=== PATIENT | female | born 1960 | race African-American/Black ===

== ENCOUNTER 2017-08-17 10:40 | Outpatient (CLI) | payer MEDICAID | END 2017-08-17 10:41 | disposition home or self-care (01) | LOC: PET 10:40 | PROVIDERS: ATTEND Internal Medicine Medical Oncology | DX: Z53.9 Procedure and treatment not carried out, unspecified reason (principal); C50.311 Malignant neoplasm of lower-inner quadrant of right female breast ==

== ENCOUNTER 2017-08-18 15:12 | Inpatient (IN) | payer MEDICAID ==
[~2017-08-18 15:12] MED LIST: ISOVUE-370 76%-LOCM 1 ML ONE
[2017-08-18 16:24] LABS: #Eosinphils 0.4 thou/uL (0.0-0.7); #Lymphocytes 2.5 thou/uL (1.20-3.40); #Monocytes 1.4 thou/uL (0.11-0.59); #Neutrophils 11.3 thou/uL (1.40-6.50); %Basophils 0.2 % (0.0-1.0); %Eosinophils 2.4 % (0.0-10.0); %Lymphocytes 16.1 % (21.0-51.0); Hematocrit 29.8 % (36.0-47.0); Mean Platelet Volume 9.1 fL (7.4-10.4); Red Blood Cell (RBC) Count 4.28 mill/uL (4.20-5.40); White Blood Cell (WBC) Count 15.7 thou/uL (4.8-10.8)
[2017-08-18 16:35] LABS: Lactic Acid - Sepsis 0.9 mmol/L (0.5-2.2)
[2017-08-18 16:38] LABS: ALT (SGPT) 7 U/L (8-55); AST (SGOT) 13 U/L (5-34); Alkaline Phosphatase 87 U/L (40-150); Anion Gap 12 mmol/L (10-20); BUN (Urea Nitrogen) 7 mg/dL (9.8-20.1); Bilirubin, Total 0.2 mg/dL (0.2-1.2); Calc. Creatinine Clearance 0 mL/min (70-130); Calcium 8.8 mg/dL (7.8-10.44); Carbon Dioxide 23 mmol/L (22-29); Chloride 103 mmol/L (98-107); Estimated GFR-MDRD Greater than 90; Globulin 3.3 g/dL (2.4-3.5); Lipase 11 U/L (8-78); Protein, Total 6.5 g/dL (6.0-8.3)
[2017-08-18 16:48] LABS: Anisocytosis MODERATE=16-30 cells (100X) (0-5/hpf); Hypochromia MODERATE=16-30 cells (100X) (0-5/hpf); Microcytosis MODERATE=15-30 cells (100X) (0-5/hpf); Ovalocytes SLIGHT = 2-5 cells (100X) (0-1/hpf); Polychromasia MODERATE = 3-4 cells (100X) (0-2/hpf); Schistocytes SLIGHT = 2-5 cells (100X) (0-1/hpf); Target Cells MODERATE= 6-15 cells (100X) (0-1/hpf)
[2017-08-18] MEDS ORDERED: Ondansetron HCl/PF 4 MG/2 ML Vial ONE (17:11)
[2017-08-18 17:29] LABS: Bilirubin Negative (Negative); Blood, Urine Negative (Negative); Glucose, Urine (Dipstick) Negative (Negative); Ketone, Urine Trace mg/dL (Negative); Nitrite Negative (Negative); Protein, Urine (Dipstick) Negative (Neg-Trace); Urobilinogen 0.2 mg/dL (0.2-1.0)
[2017-08-18 17:50] LABS: Hyaline Casts/LPF 0-3 HYALINE CAST LPF (0-3 Hyaline); RBC/HPF 0-3 HPF (0-3); Squamous Epithelial 0-3 HPF (0-3); WBC/HPF 0-3 HPF (0-3)
[2017-08-18 18:03] LABS: Bacteria/HPF None Seen HPF (None Seen)
--- NOTE | 2017-08-18 20:58 | CT ---
CT OF THE ABDOMEN AND PELVIS WITH CONTRAST 08/18/17 COMPARISON: 06/12/17 HISTORY: Stage IV lung and breast cancer with uncontrollable pain in the abdomen. TECHNIQUE: Multiple contiguous axial images were obtained in a CT of the abdomen and pelvis with contrast. Rj nal reformats were performed. FINDINGS: There is scattered subcentimeter hypodensities in the liver which are too small to definitely charac terize. These could potentially represent metastatic lesions. The gallbladder, kidneys, adrenal glan ds, spleen, and pancreas are unremarkable. There has been interval development of enlarged lymph nodes versus formation of masses in the mesent noah of the small bowel. There is also a mass posterior to the right colon measuring 2.4 cm in size. Previously, this was a very small nodule measuring less than 1 cm in size. There has been interval d evelopment of a mass along the lower pole of the left kidney measuring 2.1 cm in size. A nodule meg cent to the spleen likely represents a splenule. There has been interval development of nodules within the subcutaneous tissues. In the anterior abdo men, there are two nodules within the subcutaneous fat measuring up to 1.3 cm in size. In the back, at approximately the T11 level, there is a midline 1.5 cm subcutaneous nodule. No suspicious osseous lesions are identified. There is a mass in the right lower lobe of the lung wh ich has increased in size measuring 5.4 cm in size. The previously seen nodule in the lingula has in creased in size and now measures 8 mm in size. A small right pleural effusion is seen. IMPRESSION: 1. Interval development of masses in the small bowel mesentery. It is difficult to determine th e size of these masses as no enteric contrast is given and these masses are immediately adjacent to the small bowel. These likely represent enlarged lymph nodes. 2. There has been interval development of a mass adjacent to the left kidney and enlargement of a mass posterior to the right cecum. These likely represent metastatic lesions. 3. There has been interval development of multiple subcutaneous nodules which likely represent metastatic disease. 4. Enlarging right lower lobe lung mass. 5. Enlargement of nodule in the lingula likely represents metastatic disease. 6. Hypodensities in the liver are concerning for metastatic disease. POS: [facility]
[2017-08-18] MEDS ORDERED: Ondansetron HCl/PF 4 MG/2 ML Vial IVP PRN (21:34)
[2017-08-18] MEDS ORDERED: Ondansetron ODT 4 MG TAB SL PRN (21:34)
[2017-08-18] MEDS: Sodium Chloride 0.9% 1,000 ML IV SCH (22:25)
[2017-08-18 23:50] VITALS: BMI 31.1
[2017-08-19] MEDS: Ketorolac Tromethamine 30 MG/ML VIAL IVP PRN ×3 (03:12→20:27)
[2017-08-19] MEDS: Sodium Chloride 0.9% 1,000 ML IV SCH ×3 (04:43→21:44)
[2017-08-19] MEDS ORDERED: Sodium Chloride 0.9% 1,000 ML IV SCH (05:00)
[2017-08-19] MEDS ORDERED: Ondansetron HCl/PF 4 MG/2 ML Vial IVP PRN ×2 (05:01→08:08)
[2017-08-19] MEDS ORDERED: Ondansetron ODT 4 MG TAB SL PRN (05:02)
[2017-08-19] MEDS ORDERED: cloNIDine HCl 0.1 MG TAB PO PRN (08:08)
[2017-08-19] MEDS ORDERED: HYDROcodone/Acetaminophen 10/325 mg Tablet PO PRN (08:08)
[2017-08-19] MEDS ORDERED: Ondansetron ODT 4 MG TAB PO PRN (08:08)
[2017-08-19] MEDS ORDERED: Benzonatate 100 MG CAP PO PRN (08:08)
[2017-08-19] MEDS ORDERED: traMADol HCl 50 MG TAB PO PRN (08:08)
[2017-08-19] MEDS ORDERED: Senokot 8.6 MG TAB PO PRN (08:08)
[2017-08-19] MEDS ORDERED: Acetaminophen 500 MG TAB PO PRN (08:08)
--- NOTE | 2017-08-19 10:02 | HP ---
DATE OF ADMISSION: 08/19/2017 PRIMARY CARE PROVIDER: Mallory Jarrett M.D. PRIMARY ONCOLOGIST: Dr. Young. CHIEF COMPLAINT: Abdominal pain. HISTORY OF PRESENT ILLNESS: This is a 57-year-old -Malaysian female who presented to [facility] Emergency Department complaining of generalized and prominent abdominal pain, increasing over the last 24-48 hours. The patient's history is significant for metastatic breast carcinoma af ter recent thoracentesis confirmed diagnosis in 05/2017 showing invasive mammary carcinoma medullary type with current oral chemotherapy. Patient states her next followup appointment is scheduled for 08/23/2017 to discuss treatment options and to assess adequacy of current regimen. The patient has noted increasing abdominal pain with some difficulty with constipation; however, had her last bowel movement in the last 24 hours. The patient does use [id number] remedies and stool softeners due to chronic narcotic use and tramadol secondary to pain. The patient denies any specific fever, chills, recent trauma, travel history or prominent diarrhea. The patient admits to mild nausea with out emesis. The patient admits to decreased appetite with approximately 20+ pound weight loss over the last several months since the recurrence of her breast cancer. The patient states she was initi ally diagnosed in 2010, undergoing a local resection with chemo and radiation therapy. The patient was noted recurrence after thoracentesis performed in 05/2017. The patient does admit she takes mary carmen e [place], tramadol and gabapentin with some relief of her symptoms. In the emergency room, the patie nt underwent general evaluation including CT of the abdomen and pelvis showing extensive metastatic process with new lesions noted in the small bowel, left kidney, and right cecum region. Multiple fuentes bcutaneous nodules also noted to be metastatic process. The patient received IV morphine sulfate, i ntravenous fluids, Zofran and was transferred to the Medical Oncology Unit for further evaluation. PAST MEDICAL HISTORY: 1. 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 2. Tobacco abuse. 3. Hypertension. 4. Coronary artery disease, status post stent placement. 5. Chronic back pain. 6. Left eye blindness post-trauma. PAST SURGICAL HISTORY: 1. Status post lymph node resection of the right breast. 2. Status post thoracentesis. 3. Status post left eye surgery, status post trauma. 4. Status post cholecystectomy. CURRENT MEDICATIONS: 1. Coreg 6.25 mg p.o. b.i.d. 2. Gabapentin 300 mg p.o. b.i.d. 3. Tramadol 50 mg p.o. q.i.d. p.r.n. ALLERGIES: No known drug allergies. FAMILY HISTORY: Positive for breast carcinoma and hypertension. SOCIAL HISTORY: Patient resides in [place], [place]. Smokes up to half a pack to 1 pack of cigaret susie daily. Occasional alcohol use. No illicit drug use. REVIEW OF SYSTEMS: The following complete review of systems was negative, unless otherwise mentione d in the HPI or below: Constitutional: Weight loss or gain, ability to conduct usual activities. Skin: Rash, itching. Eyes: Double vision, pain. ENT/Mouth: Nose bleeding, neck stiffness, pain, tenderness. Cardiovascular: Palpitations, dyspnea on exertion, orthopnea. Respiratory: Shortness of breath, wheezing, cough, hemoptysis, fever or night sweats. Gastrointestinal: Poor appetite, abdominal pain, heartburn, nausea, vomiting, constipation, or diar yusuf. Genitourinary: Urgency, frequency, dysuria, nocturia. Musculoskeletal: Pain, swelling. Neurologic/Psychiatric: Anxiety, depression. Allergy/Immunologic: Skin rash, bleeding tendency. Otherwise negative except as stated per HPI. PHYSICAL EXAMINATION: VITAL SIGNS: On admission, blood pressure 114/55, pulse 112, respiratory rate 16, temperature 98.9 degrees Fahrenheit, O2 saturation 93% on room air. GENERAL APPEARANCE: This is a 57-year-old -Malaysian female, alert and oriented x3, pleasant, in mild distress. HEENT: Right eye with reactive pupil. Extraocular muscles intact in the right eye. Nares patent. OP is clear. Teeth in poor repair. Multiple missing teeth noted. NECK: Supple, no cervical adenopathy, no thyromegaly, no carotid bruits, no JVD appreciated. Cervi carlton spine with full active and passive range of motion. CHEST: Occasional expiratory wheeze noted. Decreased breath sounds in the bases. CARDIOVASCULAR: S1, S2 with tachycardia. ABDOMEN: Rounded and soft with mild tenderness to palpation diffusely. Bowel sounds are positive i n all four quadrants. No palpable mass. No rebound or guarding noted. EXTREMITIES: Warm and dry with fair turgor. No clubbing, cyanosis or asymmetric edema appreciated. Pulses palpable distally at the dorsalis pedis, posterior tibial, and popliteal arteries bilateral ly. Capillary refill less than 2 seconds. NEUROLOGIC: Cranial nerves II-XII are grossly intact. No focal or lateralizing signs appreciated. PERTINENT LABORATORY DATA AND X-RAY FINDINGS: Basic metabolic profile within normal limits. Lactic acid level 0.9, calcium 8.8. LFTs within normal limits. Albumin 3.2 and lipase 11. CBC showed [facility] blood cell count of 15.7, hemoglobin 8.6, hematocrit 30, MCV 70, platelet count 510 with 72% sindi trophils. Urinalysis showed trace leukocyte esterase. CT of the abdomen and pelvis dated 7 showed interval development of small bowel mesenteric masses consistent with metastatic process ve rsus enlarged lymph nodes. Interval development of left kidney mass and posterior right cecal mass. Multiple subcutaneous nodules likely representing metastatic process. Enlarging right lower lobe lung mass. Enlarging nodule in the lingula, likely metastatic process. Multiple hypodensities in t he liver noted concerning for metastatic process. EKG dated 08/18/2017 by my interpretation shows a sinus mechanism with rates in the 90s. Normal R-wave progression noted in the precordial leads. N ormal axis. No acute ST-T wave changes appreciated. ASSESSMENT AND PLAN: 1. Metastatic breast carcinoma with abdominal pain. The patient will be admitted to the Medical On cology Unit. CT of the abdomen and pelvis concerning for wide metastatic process despite current ch emotherapy regimen. Continue morphine sulfate 4 mg IV every 2 hours p.r.n., [place] 10/325 mg 1-2 tab s p.o. q.4 hours p.r.n. pain, Toradol 15 mg IV q.6 hours p.r.n. We will consult Palliative Care Ser vice given wide metastatic process. Consult Medical Oncology Service for any further recommendation s and management options. The patient may be deemed an appropriate candidate for hospice given curr ent clinical presentation. Continue intravenous normal saline at 100 mL per hour. 2. Leukocytosis. Suspect secondarily to metastatic process as described in #1. Hold antibiotic th erapy and monitor clinically. Repeat CBC in the a.m. 3. Chronic microcytic anemia secondarily to metastatic breast carcinoma. No evidence to suggest ac krishan blood loss. Monitor serial hemoglobin trend. Check serum iron studies. 4. Hypertension. Resume Coreg 6.25 mg p.o. b.i.d. and monitor clinically. 5. Anorexia. We will continue to monitor oral intake. Consider dietitian consult. Ensure t.i.d. with meals. 6. Tobacco abuse. Transdermal nicotine 14 mg q.24 hours. 7. Prophylaxis. Sequential compression devices while in bed. Pepcid 20 mg p.o. b.i.d. 8. Code status is FULL. Surrogate medical decision maker is the patient's daughter.
[2017-08-19] MEDS: Gabapentin 300 MG CAP PO SCH ×2 (10:23→20:28)
[2017-08-19] MEDS: Famotidine 20 MG TAB PO SCH ×2 (10:23→20:28)
[2017-08-19] MEDS: Docusate 100 MG CAP PO SCH ×2 (10:23→20:29)
[2017-08-19] MEDS: Nicotine 14 MG PATCH TD SCH (10:32)
[2017-08-19] MEDS ORDERED: fentaNYL 50 mcg/hour Patch TD SCH (14:30)
--- NOTE | 2017-08-19 16:07 | CON ---
DATE OF CONSULTATION: 08/19/2017 REASON FOR CONSULTATION: Metastatic breast cancer. HISTORY OF PRESENT ILLNESS: Ms. Forte is a 57-year-old -[place] female, who was diagn osed with triple negative carcinoma of the right breast in 2010. She was treated with lumpectomy, c hemotherapy and radiation under the care of a local oncologist. She was lost the follow up and was admitted to [facility] in 05/2017 with shortness of breath. CT angio showed a right lowe r lobe mass measuring 4.6 cm. She had enlarged right hilar lymph nodes and a right pleural effusion . Thoracentesis fluid was positive for adenocarcinoma. She underwent open thoracotomy and pulmonar y decortication. Pathology was consistent with metastatic carcinoma of the breast. She was unfunde d at that time and was in the process of being approved for Medicaid. She was eventually able to ge t the prescription for Xeloda, which she started on 08/12/2017 and has completed only 7 days worth. She presented to the emergency room yesterday with complaints of abdominal pain. A CT scan of the abdomen and pelvis showed interval development of masses in the small bowel mesenteric. There was a lso development of multiple subcutaneous nodules. The right lower lobe mass was larger than prior C T scan, hypodensities in the liver that were initially considered to be cyst, were now concerning fo r metastatic disease. The patient was started on IV morphine and Toradol. Her [place] and tramadol w ere continued. We were asked to see the patient for assistance with pain control. PAST MEDICAL HISTORY: 1. Breast cancer in 2010. 2. Osteoporosis. 3. High blood pressure. 4. Arthritis. 5. Asthma. 6. Tobacco abuse. 7. Coronary artery disease with stent placement. PAST SURGICAL HISTORY: 1. Appendectomy. 2. Right mastectomy. 3. Thoracotomy decortication. ALLERGIES: No known drug allergies. HOME MEDICATIONS: 1. Ultram 50 mg 1-2 tablets q.4 hours p.r.n. pain. 2. Hydrocodone 10/325 1-2 tablets q.4 h. p.r.n. pain. 3. Xeloda 500 mg 4 tablets p.o. b.i.d. daily for 14 days with 1 week off. FAMILY HISTORY: Two aunts have from breast cancer. She has a grandson with brain cance r. SOCIAL HISTORY: Single, has three children stays with her daughter in [place]. She is a curren t smoker. No alcohol or illicit drug use. REVIEW OF SYSTEMS: Constitutional: Denies fever, chills, night sweats. Eyes: No blurred or doubl e vision. ENT: No pain, hoarseness, sore throat, or dysphagia. Cardiovascular: No chest pain, pa lpitations or syncope. Respiratory: No shortness of breath, dyspnea on exertion or orthopnea. Gas trointestinal: Positive for nausea, constipation, and abdominal pain. Genitourinary: No dysuria o r hematuria. Musculoskeletal: No joint or back pain. Skin: No rash or pruritus. Hematologic: N o bleeding, bruising or clotting. Neurologic: Denies weakness, headache, numbness, tingling or sei zure activity. Psychiatric: No anxiety or depression. PHYSICAL EXAMINATION: VITAL SIGNS: Temperature is 98.0, pulse is 108, respiratory rate 20, BP is 117/61. She is 95% on 2 liters. GENERAL: Well-developed, well-nourished female, in no acute distress. HEENT: Normocephalic, atraumatic. Pupils equal and reactive to light. She has poor dentition. NECK: Supple without JVD or mass. CARDIOVASCULAR SYSTEM: Regular rate and rhythm. LUNGS: Clear to auscultation. ABDOMEN: Soft, nontender. There is no organomegaly. No nodules palpable. EXTREMITIES: No clubbing, cyanosis or edema. SKIN: No rash. HEMATOLOGICAL: There is no petechia or purpura. NEUROLOGICAL: Grossly nonfocal. PSYCHIATRIC: The patient is alert and oriented and answers questions appropriately. PERTINENT LABORATORY AND X-RAYS: Current WBCs are 15.7, hemoglobin 8.6, hematocrit 29.8, platelet c ount 510,000, 72% neutrophils, 16% lymphocytes. Sodium 134, potassium 4.4, chloride 103, CO2 is 23, BUN is 7, creatinine 0.65, calcium is 8.8, total bilirubin is 0.2, AST 13, ALT 7, alkaline phosphat ase is 87. Serum total protein is 6.5, albumin 3.2, globulin 3.3. Urine is negative for bacteria. Radiology per HPI. IMPRESSION: 1. Metastatic breast cancer with lung metastasis on diagnosis now with abdominal metastatic disease . 2. Intractable pain secondary to #1. 3. Leukocytosis. 4. Chronic anemia. 5. Thrombocytosis, likely reactive. DISCUSSION: The patient is getting IV morphine and Toradol here. We will increase her tramadol to her home dose and add a fentanyl patch. We will try to limit IV pain medication. Patient is receiv ing her Xeloda here. We will continue medication twice a day. She has only been on treatment for 6 days. We did discuss hospice. She is not interested in going on hospice at this time, but is agre eable to Palliative Care. Palliative Care team will come by and discuss options with her. She will follow up with Dr. Young next week in the clinic. Thank you for the consult.
[2017-08-19] MEDS: traMADol HCl 50 MG TAB PO PRN ×2 (16:34→20:28)
[2017-08-19] MEDS: Carvedilol 6.25 MG TAB PO SCH (16:35)
[2017-08-19] MEDS: CAPECITABINE 500 MG PO SCH (20:27)
[2017-08-20] MEDS: Ketorolac Tromethamine 30 MG/ML VIAL IVP PRN ×3 (02:31→20:53)
[2017-08-20] MEDS: Sodium Chloride 0.9% 1,000 ML IV SCH ×2 (02:32→17:26)
[2017-08-20] MEDS: HYDROcodone/Acetaminophen 10/325 mg Tablet PO PRN ×3 (05:03→23:04)
[2017-08-20 05:29] LABS: IRF 0.425 Ratio (0.163-0.362); Reticulocyte Count 2.2 % (0.5-1.5)
[2017-08-20 05:45] LABS: Anion Gap 11 mmol/L (10-20); BUN (Urea Nitrogen) 6 mg/dL (9.8-20.1); Calc. Creatinine Clearance 140 mL/min (70-130); Calcium 8.6 mg/dL (7.8-10.44); Carbon Dioxide 25 mmol/L (22-29); Chloride 106 mmol/L (98-107); Estimated GFR-MDRD Greater than 90; Iron Less than 8 ug/dL (50-170)
[2017-08-20 06:08] LABS: Anisocytosis MODERATE=16-30 cells (100X) (0-5/hpf); Hematocrit 27.2 % (36.0-47.0); Hypochromia SLIGHT = 6-15 cells (100X) (0-5/hpf); Mean Platelet Volume 8.8 fL (7.4-10.4); Microcytosis SLIGHT = 6-15 cells (100X) (0-5/hpf); Neutrophil 79 % (42-75); Polychromasia SLIGHT = 2-3 cells (100X) (0-2/hpf); Reactive Lymphocytes 2 % (0-10); Red Blood Cell (RBC) Count 3.86 mill/uL (4.20-5.40); Tear Drops SLIGHT = 2-5 cells (100X) (0-1/hpf); White Blood Cell (WBC) Count 13.3 thou/uL (4.8-10.8)
[2017-08-20] MEDS: Carvedilol 6.25 MG TAB PO SCH ×2 (08:47→17:24)
[2017-08-20] MEDS: Gabapentin 300 MG CAP PO SCH ×2 (08:47→20:10)
[2017-08-20] MEDS: Famotidine 20 MG TAB PO SCH ×2 (08:47→20:10)
[2017-08-20] MEDS: CAPECITABINE 500 MG PO SCH ×2 (08:47→20:09)
[2017-08-20] MEDS: Docusate 100 MG CAP PO SCH ×2 (08:47→20:10)
[2017-08-20] MEDS: Nicotine 14 MG PATCH TD SCH (08:53)
[2017-08-20] MEDS ORDERED: IRON DEXTRAN IVPB SCH ×3 (11:00→11:15)
[2017-08-20] MEDS ORDERED: SODIUM CHLORIDE 0.9% IVPB SCH (11:00)
[2017-08-20] MEDS ORDERED: ADMIXTURE FEE IVPB SCH ×2 (11:15)
[2017-08-20] MEDS ORDERED: SODIUM CHLORIDE IVPB SCH ×2 (11:15)
--- NOTE | 2017-08-20 16:00 | PDOC.PN ---
- Subjective Encounter Start Date: 08/20/17 Encounter Start Time: 15:45 Subjective: f/u from abd pain due to metastatic breast ca. States doing better overall -: and less pain. Appetite improved. - Objective Resuscitation Status: Resuscitation Status FULL:Full Resuscitation MAR Reviewed: Yes Vital Signs & Weight: Vital Signs (12 hours) Temp Pulse Resp BP BP Pulse Ox 08/20/17 08:47 112/56 L 08/20/17 08:00 98.7 F 109 H 16 08/20/17 07:18 98.7 F 109 H 16 112/56 L 84 L Weight Weight 187 lb 6.287 oz I&O: 08/19/17 08/20/17 08/21/17 06:59 06:59 06:59 Intake Total 240 Output Total 300 Balance -60 Result Diagrams: 08/20/17 04:47 08/20/17 04:47 Additional Labs: Microbiology 06/08/17 08:51 Pleural fluid Acid Fast Bacilli Smear - Final 06/08/17 08:51 Pleural fluid Body Fluid Culture - Preliminary Laboratory Tests 06/08/17 06/09/17 06/10/17 05:42 06:01 03:37 WBC 11.5 H 9.7 14.6 H Hgb 11.3 L 10.3 L 9.5 L MCV Plt Count Iron Ferritin 08/18/17 08/20/17 08/20/17 16:09 04:47 04:47 WBC 15.7 H Hgb 8.6 L MCV 69.6 L Plt Count 510 H Iron Less than 8 L Ferritin 59.14 Phys Exam - Physical Examination Constitutional: NAD alert, responsive HEENT: PERRLA, oral pharynx no lesions Neck: no JVD, supple Respiratory: no wheezing, clear to auscultation bilateral Cardiovascular: RRR obese Gastrointestinal: soft, non-tender, no distention, positive bowel sounds Musculoskeletal: no edema, pulses present Neurological: normal sensation, moves all 4 limbs Psychiatric: A&O x 3 Skin: normal turgor, cap refill <2 seconds Dx/Plan (1) Abdominal pain Code(s): R10.9 - UNSPECIFIED ABDOMINAL PAIN Status: Acute Qualifiers: Abdominal location: generalized Qualified Code(s): R10.84 - Generalized abdominal pain Comment: Improved with current pain regimen, continue Duragesic patch, [place] 10/ 325mg po q6h prn (2) Metastatic breast carcinoma Code(s): C50.919 - MALIGNANT NEOPLASM OF UNSP SITE OF UNSPECIFIED FEMALE BREAST ; C79.9 - SECONDARY MALIGNANT NEOPLASM OF UNSPECIFIED SITE Status: Chronic Comment: Currently tx with Xeloda, apparent progression of dz despite chemothx (3) Microcytic anemia Code(s): D50.9 - IRON DEFICIENCY ANEMIA, UNSPECIFIED Status: Acute Comment: Iron IV today, follow serial H/H (4) HTN (hypertension) Code(s): I10 - ESSENTIAL (PRIMARY) HYPERTENSION Status: Chronic Qualifiers: Hypertension type: essential hypertension Qualified Code(s): I10 - Essential (primary) hypertension Comment: Continue Coreg 3.125mg BID (5) Tobacco abuse Code(s): Z72.0 - TOBACCO USE Status: Chronic Comment: smoking cessation resources - Plan social services director, respiratory therapy, out of bed/ambulate, DVT proph w/SCDs Stable currently -: Continue Duragesic patch, [place] -: IV Iron infusion today -: Colace and Senna prn -: Anticipate home in am * Ensure TID with meals
[2017-08-21] MEDS: Sodium Chloride 0.9% 1,000 ML IV SCH ×2 (04:23→11:40)
[2017-08-21] MEDS: Ketorolac Tromethamine 30 MG/ML VIAL IVP PRN (07:12)
[2017-08-21] MEDS: Carvedilol 6.25 MG TAB PO SCH ×2 (09:16→17:14)
[2017-08-21] MEDS: Gabapentin 300 MG CAP PO SCH (09:17)
[2017-08-21] MEDS: Famotidine 20 MG TAB PO SCH (09:17)
[2017-08-21] MEDS: Nicotine 14 MG PATCH TD SCH (09:17)
[2017-08-21] MEDS: Docusate 100 MG CAP PO SCH (09:17)
[2017-08-21] MEDS: CAPECITABINE 500 MG PO SCH (09:18)
[2017-08-21] MEDS: HYDROcodone/Acetaminophen 10/325 mg Tablet PO PRN (09:24)
[2017-08-21] MEDS ORDERED: Mag-Al 1200 mg/1200 mg/30 ML UDCUP PO SCH (11:30)
[2017-08-21] MEDS: traMADol HCl 50 MG TAB PO PRN (12:08)
[2017-08-21 17:15] VITALS: BP 121/60
[2017-08-21 17:16] VITALS: TEMP 98.5
--- NOTE | 2017-08-21 18:40 | DIS ---
DATE OF ADMISSION: 08/18/2017 DATE OF DISCHARGE: 08/21/2017 DISCHARGE DIAGNOSES: 1. Metastatic breast carcinoma with extensive intra-abdominal involvement. 2. Abdominal pain secondary to #1, improved. 3. Microcytic anemia with iron deficiency component. 4. Hypertension, stable. 5. Tobacco abuse. 6. Leukocytosis secondarily to #1. CONSULTATIONS: Medical Oncology Service. PERTINENT LABORATORY DATA AND X-RAY FINDINGS: Basic metabolic profile within normal limits. Serum iron level less than 8. Ferritin 59.14. LFTs within normal limits. Albumin 3.2, lipase 11. CBC s howed a white blood cell count ranging between 13.3-15.7, hemoglobin ranging between 7.7-8.6. Urine culture dated 08/18/2017 showed no growth at [address] of the abdomen and pelvis dated 08/18/20 17 showed intraabdominal masses in the small-bowel mesentery, questionable lymph node enlargement ve rsus metastatic process. Mass noted in the left kidney and right cecum likely metastatic process. Multiple subcutaneous nodules representing metastatic process. Enlarging right lower lobe lung mass . Enlargement of nodule in the lingula, likely metastatic process. Multiple hypodensities in the l iver consistent with metastatic process. HOSPITAL COURSE: The patient was admitted to the medical oncology unit after initially presenting w ith increased abdominal pain in the context of metastatic breast carcinoma with extensive intra-abdo zofia involvement. The patient was placed on IV morphine sulfate and underwent titration and adjust ment to pain regimen for optimal control. The patient currently is on Duragesic patch 50 mcg transd ermally q.72 hours with additional tramadol 100 mg q.6 hours p.r.n. The patient's overall pain had improved by the time of discharge. Current recommendations are for outpatient followup with Medical Oncology team for further assessment and consideration of adjustment to current chemotherapy regime n. Overall, the patient remained clinically stable for remainder the hospital course and ready for discharge on 08/21/2017. DISCHARGE MEDICATIONS: 1. Capecitabine 2000 mg p.o. b.i.d. 2. Coreg 6.25 mg p.o. b.i.d. 3. Gabapentin 300 mg 1 tablet p.o. b.i.d. 4. Duragesic patch 50 mcg transdermally every 72 hours. 5. Tramadol 100 mg p.o. q.i.d. p.r.n. FOLLOWUP: The patient may follow up with her primary care provider, Dr. Mallory Jarrett within 7 days of discharge. The patient will follow up with Dr. Young at the [facility] and to call his stefanie squires for appointment time and date. CONDITION ON DISCHARGE: Stable. ACTIVITY: Ad nuria. DIET: Heart healthy. CODE STATUS: FULL. DISPOSITION: Home on 08/21/2017.
== END 2017-08-21 17:50 | disposition home or self-care (01) | DRG 598 ==
LOC: ERS 15:12 → ONC 21:19
PROVIDERS: ADMIT Internal Medicine; ATTEND Internal Medicine
DX: C50.911 Malignant neoplasm of unspecified site of right female breast (principal); C78.01 Secondary malignant neoplasm of right lung; C78.5 Secondary malignant neoplasm of large intestine and rectum; C79.89 Secondary malignant neoplasm of other specified sites; C79.02 Secondary malignant neoplasm of left kidney and renal pelvis; Z90.11 Acquired absence of right breast and nipple; Z72.0 Tobacco use; I10 Essential (primary) hypertension; G89.29 Other chronic pain; M54.9 Dorsalgia, unspecified; H54.42 Blindness, left eye, normal vision right eye; Z90.49 Acquired absence of other specified parts of digestive tract; D72.829 Elevated white blood cell count, unspecified; D50.9 Iron deficiency anemia, unspecified; R63.0 Anorexia; D47.3 Essential (hemorrhagic) thrombocythemia
CPT/HCPCS: 36415; 74177; 80048; 80053; 81003; 81015; 82274; 82728; 83540; 83605; 83690; 85007; 85025; 85027; 85046; 87086; 93005; 94760; 96361; 96374; 96375; 96376; A4216; J1750; J1885; J2270; J2405; J7050; Q0162

== ENCOUNTER 2017-09-20 13:59 | Inpatient (IN) | payer OTHER ==
[2017-09-20] MEDS ORDERED: Ondansetron HCl/PF 4 MG/2 ML Vial ONE (14:49)
[2017-09-20] MEDS ORDERED: Morphine 2 MG/ML SYRINGE ONE (14:49)
[2017-09-20] MEDS ORDERED: diphenhydrAMINE 50 MG/ML VIAL ONE (14:57)
[2017-09-20] MEDS ORDERED: ISOVUE-370 76%-LOCM 1 ML ONE (15:03)
[2017-09-20 15:04] LABS: Hematocrit 29.6 % (36.0-47.0); Mean Platelet Volume 9.6 fL (7.4-10.4); Red Blood Cell (RBC) Count 4.37 mill/uL (4.20-5.40); White Blood Cell (WBC) Count 32.9 thou/uL (4.8-10.8)
[2017-09-20 15:18] LABS: Anisocytosis MODERATE=16-30 cells (100X) (0-5/hpf); Band 13 % (5-11); Elliptocytes SLIGHT = 2-5 cells (100X) (0-1/hpf); Hypochromia MODERATE=16-30 cells (100X) (0-5/hpf); Microcytosis MODERATE=15-30 cells (100X) (0-5/hpf); Neutrophil 78 % (42-75); Ovalocytes SLIGHT = 2-5 cells (100X) (0-1/hpf); Poikilocytosis MODERATE=16-30 cells (100X) (0-5/hpf); Polychromasia MODERATE = 3-4 cells (100X) (0-2/hpf); Reactive Lymphocytes 1 % (0-10); Schistocytes SLIGHT = 2-5 cells (100X) (0-1/hpf); Target Cells MODERATE= 6-15 cells (100X) (0-1/hpf); Tear Drops SLIGHT = 2-5 cells (100X) (0-1/hpf)
[2017-09-20 15:19] LABS: Lactic Acid - Sepsis 3.4 mmol/L (0.5-2.2)
[2017-09-20 15:27] LABS: ALT (SGPT) 7 U/L (8-55); AST (SGOT) 14 U/L (5-34); Alkaline Phosphatase 115 U/L (40-150); Anion Gap 13 mmol/L (10-20); BUN (Urea Nitrogen) 10 mg/dL (9.8-20.1); Bilirubin, Total 0.3 mg/dL (0.2-1.2); Calc. Creatinine Clearance 0 mL/min (70-130); Calcium 9.4 mg/dL (7.8-10.44); Carbon Dioxide 28 mmol/L (22-29); Chloride 92 mmol/L (98-107); Estimated GFR-MDRD Greater than 90; Globulin 3.6 g/dL (2.4-3.5); Lipase 20 U/L (8-78); Protein, Total 6.4 g/dL (6.0-8.3)
[2017-09-20 15:46] LABS: Bilirubin Small (Negative); Blood, Urine Negative (Negative); Glucose, Urine (Dipstick) Negative (Negative); Ketone, Urine Negative (Negative); Nitrite Negative (Negative); Protein, Urine (Dipstick) Trace mg/dL (Neg-Trace)
--- NOTE | 2017-09-20 16:05 | CT ---
CT ABDOMEN AND PELVIS WITH IV CONTRAST: Date: 09/20/17 HISTORY: Stage IV lung and breast cancer with pain in the abdomen. COMPARISON: 08/18/17. FINDINGS: Absence of oral contrast reduces the sensitivity of exam for evaluation of mesenteric lymphadenopath y and bowel loops. There has been interval increase in size of the pulmonary nodules and the lung bases. The large righ t basilar lung mass has also increased in size, measuring about 6.8 cm at the level of the left atri um. Low density lesions in the liver are stable. The spleen, pancreas, adrenal glands, and kidneys a re normal. No calcified gallstones are seen. The retroperitoneal masses inferior to the left kidney (2.7 x 3.9 x 4.2 cm) and in the right iliac f cecelia (3.2 x 2.3 x 2.9 cm) and mediastinal lymphadenopathy have increased in size. The anterior abdom inal wall nodules in the subcutaneous fat have also increased in size measuring about 2.0 cm each. No free air or free fluid is seen. There are degenerative changes in the spine. IMPRESSION: Interval worsening of metastatic disease since 08/18/17. POS: [facility]
[2017-09-20] MEDS ORDERED: Fentanyl 100 MCG/2 ML VIAL ONE (17:16)
[2017-09-20] MEDS ORDERED: Piperacillin/Tazobactam 4.5 GM VIAL ONE (17:43)
[2017-09-20] MEDS ORDERED: Sodium Chloride 0.9% 100 ML ONE (17:54)
[2017-09-20] MEDS ORDERED: Zolpidem Tartrate 5 MG TAB PO PRN (18:48)
[2017-09-20] MEDS ORDERED: HYDROcodone/Acetaminophen 5/325 mg Tablet PO PRN (18:48)
[2017-09-20] MEDS: HYDROcodone/Acetaminophen 10/325 mg Tablet PO PRN ×2 (19:23→23:21)
[2017-09-20 19:55] VITALS: BMI 29.3
[2017-09-20] MEDS: Piperacillin/Tazobactam 3.375 GM, Admixture Fee 1 EACH in Sodium Chloride 0.9% 100 ML IVPB SCH (20:45)
[2017-09-20] MEDS: Gabapentin 300 MG CAP PO SCH (20:59)
[2017-09-20] MEDS: Famotidine 20 MG TAB PO SCH (20:59)
[2017-09-20] MEDS: Enoxaparin Sodium 40 MG/0.4 ML SYRINGE SC SCH (20:59)
[2017-09-20] MEDS ORDERED: fentaNYL 50 mcg/hour Patch TD SCH (21:00)
[2017-09-20] MEDS ORDERED: CAPECITABINE 500 MG PO SCH (21:15)
[2017-09-21] MEDS: Sodium Chloride 0.9% 1,000 ML IV SCH ×3 (00:05→17:24)
--- NOTE | 2017-09-21 00:09 | HP ---
CHIEF COMPLAINT: Abdominal pain. HISTORY OF PRESENT ILLNESS: Ms. Forte is a pleasant 57-year-old - [place] female with history of metastatic breast cancer, coronary artery disease and chronic back pain who presents to the Emergency Department for abdominal pain. She states the pain has been there for sometime, but seems to have got worse over the last week or so. She describes this as a constant aching pain, rated 8 -10/10 and starts up in her right flank and seems to radiate around the midline on the right side. She has no known exacerbating or alleviating factors. She is still using her fentanyl patch, change every 3 days, but has been out of Ultram and cannot seem to get rid of the pain. She decided to come to the Emergency Department for evaluation. In the Emergency Department, she was found to have an elevated white blood cell count of 32.9 thousand, low hemoglobin, but otherwise fairly normal labs. She was tachycardic on presentation better after getting some pain medicine. The emergency room physicians contacted her oncologist, Dr. Young and he said the labs certainly could be due to her oral chemotherapeutic agent, but recommended admission for pain control necessary. Patient had no nausea or vomiting and had no bowel movements today. She has no GI bleeding above or below. She knows of no fevers, but has had some generalized body ache and chills, otherwise. She denies any cough or sputum production. In the Emergency Department, she received some IV fentanyl and was feeling better. We were called for admission. PAST MEDICAL HISTORY: 1. Metastatic breast cancer, originally diagnosed in 2010 and treated with surgery, chemotherapy and radiation and was felt to be in remission. 2. She was re-diagnosed in 2017 with recurrence, currently stage 4 with metastatic lesions to the lung and abdomen. 3. Coronary artery disease. 4. DJD. 5. Chronic back pain. PAST SURGICAL HISTORY: Includes; 1. PTCA with stent in 05/2015. 2. Right mastectomy and lymph node dissection, chemotherapy and radiation therapy in 2010. 3. Cholecystectomy. 4. Left eye enucleation remotely. HOME MEDICATIONS: Include; 1. Cepacitabine 500 mg 4 tabs p.o. b.i.d. 2. Coreg 6.25 mg p.o. b.i.d., which she is not taking currently. 3. Gabapentin 300 mg p.o. b.i.d., which she is not taking. 4. Fentanyl 50 mcg transdermal patch change every 3 days. 5. Tramadol 50 mg p.o. q.i.d. p.r.n., which she is currently out of. ALLERGIES: NKDA. FAMILY HISTORY: Negative for clotting or bleeding disorder. No immune dysfunction. Negative for diabetes or hypertension. SOCIAL HISTORY: 1. Significant for tobacco, smokes anywhere from a half to 1 pack per day for 26 years, currently down to 4 cigarettes a day since her re-diagnosis. 2. No alcohol, no IV drug abuse. She lives with her daughter. REVIEW OF SYSTEMS: A 10-point review of systems was performed, negative for all other systems except as stated per HPI. PHYSICAL EXAMINATION: VITAL SIGNS: Temperature 97.4, pulse 102, blood pressure 117/72, respiratory 18 and satting 99% on room air. GENERAL: She is awake. She is alert. She is oriented x3. She is a well- developed, well-nourished, overweight -[place] female who appears to be in no acute distress. HEENT: Normocephalic, atraumatic. 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 Mucous membranes are moist. She has no visible lesions, no thrush. NECK: Supple, without lymphadenopathy, JVD, or thyromegaly. CHEST: Lungs are clear bilaterally. She has some faint bibasilar crackles on the right lower posterior lung field that do not clear. CARDIOVASCULAR: Normal S1 and S2. She is slightly tachycardic, but regular. She has no audible murmurs. ABDOMEN: Soft. It is nontender. She has no rebound, rigidity or guarding. She has normoactive bowel sounds present in all 4 quadrants. EXTREMITIES: No cyanosis, no clubbing and no edema. She has 2+ peripheral pulses. SKIN: Warm, moist, and well perfused without any other rashes or lesions. MUSCULOSKELETAL: Normal to inspection. Her large joints appear uninflamed and normal to inspection. She has no palpable joint effusions. NEUROLOGIC: Cranial nerves II-XII are grossly intact without any focal deficits. SKIN: She has normal speech pattern and 5/5 strength. LABORATORY DATA: CMP reveals a sodium of 129, potassium 3.6, chloride 99, bicarbonate 28, BUN 10, creatinine 0.58. Lactic acid elevated at 3.4 and lipase at 20. Calcium was 9.4 and sugar of 123. Liver functions are fairly normal. Albumin is low at 2.8. White blood cell count 32.9, 78% granulocytes and 13% bands. She had a hemoglobin of 8.6, hematocrit of 28.6 and platelet count of 619,000. IMAGING DATA: CT scan of the abdomen and pelvis shows increased size of pulmonary nodules, increased large right basilar mass, retroperitoneal mass x2 and mediastinal lymphadenopathy is increased and low density liver lesions were stable. ASSESSMENT AND PLAN: 1. Abdominal pain: The patient is out of her home medications. We will place her in observation and try to achieve pain control with oral medications tonight. We will ask Oncology to see her. 2. Stage IV metastatic breast cancer with multiple lesions, worsening on oral chemotherapy. Oncology to see. Continue her home medications. 3. History of coronary artery disease: The patient has not been on the Coreg. We will continue that now and see if that helps with the tachycardia. 4. History of chronic low back pain. 5. Deep venous thrombosis and gastrointestinal prophylaxis has been ordered. MTDD
[2017-09-21] MEDS: Piperacillin/Tazobactam 3.375 GM, Admixture Fee 1 EACH in Sodium Chloride 0.9% 100 ML IVPB SCH ×4 (02:16→19:32)
[2017-09-21] MEDS: HYDROcodone/Acetaminophen 10/325 mg Tablet PO PRN ×2 (03:55→08:19)
[2017-09-21 04:26] LABS: #Eosinphils 0.4 thou/uL (0.0-0.7); #Lymphocytes 2.4 thou/uL (1.20-3.40); #Monocytes 2.2 thou/uL (0.11-0.59); #Neutrophils 18.5 thou/uL (1.40-6.50); %Basophils 0.1 % (0.0-1.0); %Eosinophils 1.8 % (0.0-10.0); %Lymphocytes 10.3 % (21.0-51.0); %Monocytes 9.4 % (0.0-10.0); Hematocrit 27.3 % (36.0-47.0); Mean Platelet Volume 9.2 fL (7.4-10.4); Red Blood Cell (RBC) Count 3.99 mill/uL (4.20-5.40); White Blood Cell (WBC) Count 23.6 thou/uL (4.8-10.8)
[2017-09-21 04:35] LABS: ALT (SGPT) 7 U/L (8-55); AST (SGOT) 12 U/L (5-34); Alkaline Phosphatase 93 U/L (40-150); Anion Gap 12 mmol/L (10-20); BUN (Urea Nitrogen) 6 mg/dL (9.8-20.1); Bilirubin, Total 0.3 mg/dL (0.2-1.2); Calc. Creatinine Clearance 143 mL/min (70-130); Calcium 8.6 mg/dL (7.8-10.44); Carbon Dioxide 25 mmol/L (22-29); Chloride 99 mmol/L (98-107); Estimated GFR-MDRD Greater than 90; Protein, Total 5.6 g/dL (6.0-8.3)
[2017-09-21] MEDS: Polyethylene Glycol 3350 17 GM Packet PO SCH (08:18)
[2017-09-21] MEDS: Famotidine 20 MG TAB PO SCH ×2 (08:18→20:14)
[2017-09-21] MEDS: Gabapentin 300 MG CAP PO SCH ×2 (08:19→20:14)
[2017-09-21] MEDS: Carvedilol 6.25 MG TAB PO SCH ×2 (08:19→17:24)
[2017-09-21] MEDS ORDERED: fentaNYL 50 mcg/hour Patch TD SCH (09:00)
[2017-09-21] MEDS ORDERED: FLU VACC QS2017-18 36 mo. & older 0.5 ML SYRINGE IM ONE (09:00)
--- NOTE | 2017-09-21 10:48 | PDOC.PN ---
- Subjective Encounter Start Date: 09/21/17 Encounter Start Time: 10:25 Subjective: f/u for metastatic breast ca with severe abd pain due to extensive -: metastatic process. Receiving Duragesic 50mcg TD and Vickery but -: pain not controlled. Diminished appetite. - Objective MAR Reviewed: Yes Vital Signs & Weight: Vital Signs (12 hours) Temp Pulse Resp BP BP Pulse Ox 09/21/17 08:00 98.2 F 94 16 09/21/17 07:15 98.2 F 94 16 120/61 95 09/21/17 04:00 98.2 F 115 H 16 111/56 L 92 L 09/20/17 23:17 97.9 F 117 H 16 112/55 L 99 Weight Weight 171 lb 1.259 oz I&O: 09/20/17 09/21/17 09/22/17 06:59 06:59 06:59 Intake Total 1211 428 Balance 1211 428 Result Diagrams: 09/21/17 04:06 09/21/17 04:06 Additional Labs: Microbiology 06/08/17 08:51 Pleural fluid Acid Fast Bacilli Smear - Final 09/20/17 17:36 Venous blood - Right Hand Blood Culture - Preliminary Specimen has been received and culture in progress. No Growth to date. 09/20/17 17:32 Venous blood - Right Arm Blood Culture - Preliminary Specimen has been received and culture in progress. No Growth to date. 06/08/17 08:51 Pleural fluid Body Fluid Culture - Preliminary Laboratory Tests 06/08/17 06/09/17 06/10/17 05:42 06:01 03:37 WBC 11.5 H 9.7 14.6 H Hgb 11.3 L 10.3 L 9.5 L MCV Plt Count Neutrophils % (Manual) Band Neuts % (Manual) Sodium Lactic Acid Iron Ferritin 08/18/17 08/20/17 08/20/17 16:09 04:47 04:47 WBC 15.7 H Hgb 8.6 L MCV 69.6 L Plt Count 510 H Neutrophils % (Manual) Band Neuts % (Manual) Sodium Lactic Acid Iron Less than 8 L Ferritin 59.14 09/20/17 09/20/17 09/20/17 14:45 14:45 14:45 WBC 32.9 H Hgb 8.6 L MCV Plt Count 619 H Neutrophils % (Manual) 78 H Band Neuts % (Manual) 13 H Sodium 129 L Lactic Acid 3.4 H Iron Ferritin 09/21/17 04:06 WBC Hgb MCV Plt Count Neutrophils % (Manual) Band Neuts % (Manual) Sodium Lactic Acid 1.7 Iron Ferritin Radiology Reviewed by me: Yes (CT abd/pel - worsening metastastic process) Phys Exam - Physical Examination alert, mod distress HEENT: PERRLA, oral pharynx no lesions Neck: no JVD, supple Respiratory: no wheezing, clear to auscultation bilateral Cardiovascular: RRR TTP diffusely Gastrointestinal: soft, positive bowel sounds Musculoskeletal: no edema, pulses present Neurological: normal sensation, moves all 4 limbs Psychiatric: A&O x 3 Skin: normal turgor, cap refill <2 seconds Dx/Plan (1) Abdominal pain Code(s): R10.9 - UNSPECIFIED ABDOMINAL PAIN Status: Acute Qualifiers: Abdominal location: generalized Qualified Code(s): R10.84 - Generalized abdominal pain Comment: Secondary to extensive metastatic process, uncontrolled, add Morphine Sulfate 5mg IV q3h prn, increase Duragesic 75mcg TD q3D, Vick[place] 10/325 2 tabs q6hprn (2) Metastatic breast carcinoma Code(s): C50.919 - MALIGNANT NEOPLASM OF UNSP SITE OF UNSPECIFIED FEMALE BREAST ; C79.9 - SECONDARY MALIGNANT NEOPLASM OF UNSPECIFIED SITE Status: Chronic Comment: Currently tx with Xeloda, progression of dz despite chemothx (3) Leukocytosis Code(s): D72.829 - ELEVATED WHITE BLOOD CELL COUNT, UNSPECIFIED Status: Acute Qualifiers: Leukocytosis type: bandemia Qualified Code(s): D72.825 - Bandemia Comment: Secondary to tumor burden and current chemo, continue empiric Zosyn, serial CBC (4) Tobacco abuse Code(s): Z72.0 - TOBACCO USE Status: Chronic Comment: smoking cessation resources, Nicotine patch (5) Hyponatremia Code(s): E87.1 - HYPO-OSMOLALITY AND HYPONATREMIA Status: Acute Comment: Improved with IV NS, poor dietary intake contributing (6) Lactic acidosis Code(s): E87.2 - ACIDOSIS Status: Acute Comment: Multifactorial, improved with IVF's, continue supportive measures (7) Microcytic anemia Code(s): D50.9 - IRON DEFICIENCY ANEMIA, UNSPECIFIED Status: Acute Comment: No evidence of acute blood loss, continue serial monitoring - Plan plan discussed w/ family, continue antibiotics, social science research assistant, out of bed/ ambulate, DVT proph w/SCDs Add Morphine Sulfate 5mg IV q3h -: Increase Duragesic 75mcg TD q3d -: Vickery 10/325 2 tabs q6h prn -: Zofran 8mg IV q6h -: Consult Palliative care * Consult Hospice * Trial Megace 40mg TID * AM lab: BMP, CBC * Convert to inpt status
[2017-09-21] MEDS: Morphine 10 MG/ML VIAL SLOW IVP PRN ×4 (11:02→20:48)
[2017-09-21] MEDS: CAPECITABINE 500 MG PO SCH ×2 (11:27→17:25)
[2017-09-21] MEDS: Ondansetron ODT 4 MG TAB PO PRN (11:32)
[2017-09-21] MEDS: Ondansetron HCl/PF 4 MG/2 ML Vial IVP SCH ×2 (11:44→17:24)
[2017-09-21] MEDS: fentaNYL 75 mcg/hour Patch TD SCH (12:02)
[2017-09-21] MEDS: Megestrol Acetate 40 MG TAB PO SCH ×2 (14:14→20:14)
--- NOTE | 2017-09-21 15:46 | CON ---
DATE OF CONSULTATION: 09/21/2017 REASON FOR CONSULTATION: Breast cancer. HISTORY OF PRESENT ILLNESS: Ms. Forte is a 57-year-old female with a history of triple negative carcinoma of the right breast. She had a lumpectomy , chemoradiation in 2010. She was in remission for over 5 years, but reoccurred with metastasis to the lung, right hilar lymph nodes and right pleura. She has been taking Xeloda oral chemotherapy for the last 6 weeks. She has had significant pain in her back and abdomen and has been managed with tramadol, [place], and Fentanyl patch. She presented to the emergency room yesterday with worsening abdominal discomfort. In the emergency room, she had an abdominal and pelvis CT, which showed interval worsening of her metastatic disease from her prior admission on 08/18/2017. She was started on IV morphine and her pain has improved. She states that she has been taking her Xeloda. She denies any shortness of breath or chest pain. No diarrhea or constipation. She still has mild abdominal discomfort to palpation starting in the right upper quadrant and extends across the abdomen to left umbilical area. PAST MEDICAL HISTORY: 1. Triple negative metastatic breast cancer. 2. Osteoporosis. 3. High blood pressure. 4. Arthritis. 5. Asthma. 6. Coronary artery disease. PAST SURGICAL HISTORY: 1. Coronary artery stent placement. 2. Appendectomy. 3. Lumpectomy. 4. Cholecystectomy. ALLERGIES: No known drug allergies. HOME MEDICATIONS: 1. Duragesic 50 mcg transdermal q.3 days. 2. Hydrocodone 10/325 one to two q.4 hours p.r.n. pain. 3. Ultram 50 one to two q.4 hours p.r.n. pain. 4. Xeloda 500 mg 4 tabs b.i.d. FAMILY HISTORY: Two aunts with breast cancer. Grandson has brain cancer. SOCIAL HISTORY: Single, has 3 children and lives with her daughter. Current everyday smoker. No alcohol or illicit drug use. REVIEW OF SYSTEMS: A 10 point review of systems negative except for noted in HPI. PHYSICAL EXAMINATION: VITAL SIGNS: Temperature is 97.9, pulse is 95, respiratory rate 16, and BP is 112/58. She is 95% on room air. GENERAL: Well-developed, well-nourished female in no acute distress. HEENT: Normocephalic, atraumatic. Pupils are equal and reactive to light. NECK: Supple. CARDIOVASCULAR: Regular rate and rhythm. LUNGS: Clear to auscultation. ABDOMEN: Bowel sounds are positive. She has palpable subcutaneous nodules in the left umbilical area. EXTREMITIES: No clubbing, cyanosis or edema. SKIN: No rash. HEMATOLOGIC: No petechia or purpura. NEUROLOGIC: Nonfocal. PSYCHIATRIC: The patient is alert and oriented and answers questions appropriately. PERTINENT LABORATORY DATA AND X-RAYS: Current WBCs are 23.6, hemoglobin 7.9, hematocrit 27.3, and platelet count is 565,000. She has got 78% neutrophils, 10 % lymphocytes. Sodium is 132, potassium 3.7, chloride 99, CO2 is 25, BUN is 6, creatinine 0.54, and calcium is 8.6. Total bilirubin is 0.3, AST is 12, ALT 7, and alkaline phosphatase is 93. Serum total protein is 5.6, albumin 2.6, globulin 3, lipase 20. Urine is negative for bacteria. Radiology per HPI. ASSESSMENT: 1. Metastatic breast cancer with progression on Xeloda. 2. Intractable pain. 3. Anemia secondary to chemotherapy. DISCUSSION: The patient's fentanyl patch has been increased to 75 mcg. We will add long-acting MS Contin 30 mg b.i.d. Discussed with the patient that she has likely progressed on Xeloda. She declined hospice and would like to continue with chemotherapy. I spoke with Dr. Young who feels that we can offer her IV chemotherapy. We will plan first dose in the hospital and follow her up as an outpatient. Thank you for the consult. MTDD
[2017-09-21] MEDS: Morphine ER 30 MG TAB PO SCH (20:15)
[2017-09-21] MEDS: Enoxaparin Sodium 40 MG/0.4 ML SYRINGE SC SCH (20:16)
[2017-09-22] MEDS: Morphine 10 MG/ML VIAL SLOW IVP PRN ×4 (00:08→13:03)
[2017-09-22] MEDS: Sodium Chloride 0.9% 1,000 ML IV SCH ×5 (00:10→20:01)
[2017-09-22] MEDS: Piperacillin/Tazobactam 3.375 GM, Admixture Fee 1 EACH in Sodium Chloride 0.9% 100 ML IVPB SCH ×4 (02:29→20:01)
[2017-09-22 04:24] LABS: Band 1 % (5-11); Hematocrit 26.5 % (36.0-47.0); Hypochromia MODERATE=16-30 cells (100X) (0-5/hpf); Mean Platelet Volume 9.4 fL (7.4-10.4); Microcytosis SLIGHT = 6-15 cells (100X) (0-5/hpf); Neutrophil 85 % (42-75); Red Blood Cell (RBC) Count 3.69 mill/uL (4.20-5.40); Target Cells SLIGHT = 2-5 cells (100X) (0-1/hpf); White Blood Cell (WBC) Count 17.9 thou/uL (4.8-10.8)
[2017-09-22 04:33] LABS: Anion Gap 11 mmol/L (10-20); BUN (Urea Nitrogen) 5 mg/dL (9.8-20.1); Calc. Creatinine Clearance 148 mL/min (70-130); Calcium 8.5 mg/dL (7.8-10.44); Carbon Dioxide 24 mmol/L (22-29); Chloride 105 mmol/L (98-107); Estimated GFR-MDRD Greater than 90
[2017-09-22] MEDS: Ondansetron HCl/PF 4 MG/2 ML Vial IVP SCH ×4 (06:13→16:58)
[2017-09-22] MEDS: Morphine ER 30 MG TAB PO SCH ×2 (08:39→20:02)
[2017-09-22] MEDS: Gabapentin 300 MG CAP PO SCH ×2 (08:40→20:03)
[2017-09-22] MEDS: Famotidine 20 MG TAB PO SCH ×2 (08:40→20:02)
[2017-09-22] MEDS: Megestrol Acetate 40 MG TAB PO SCH ×3 (08:40→20:03)
[2017-09-22] MEDS: Carvedilol 6.25 MG TAB PO SCH ×2 (08:40→16:10)
[2017-09-22] MEDS: Polyethylene Glycol 3350 17 GM Packet PO SCH (08:41)
[2017-09-22] MEDS: CAPECITABINE 500 MG PO SCH (09:56)
[2017-09-22] MEDS: Ondansetron ODT 4 MG TAB PO PRN (11:35)
--- NOTE | 2017-09-22 15:37 | PDOC.PN ---
- Subjective Encounter Start Date: 09/22/17 Encounter Start Time: 15:30 Subjective: f/u for abd pain due to metastatic breast cancer with extensive intra- -: abdominal involvement and progression on chemo. Pain improved with -: current pain med regimen. Plan for IV chemo prior to d/c. - Objective MAR Reviewed: Yes Vital Signs & Weight: Vital Signs (12 hours) Temp Pulse Resp BP Pulse Ox 09/22/17 11:45 97.8 F 97 16 107/51 L 94 L 09/22/17 08:00 98.3 F 99 16 94 L 09/22/17 07:05 98.3 F 99 16 118/58 L 94 L Weight Weight 171 lb 1.259 oz I&O: 09/21/17 09/22/17 09/23/17 06:59 06:59 06:59 Intake Total 1211 4668 Output Total 400 Balance 1211 4668 -400 Result Diagrams: 09/22/17 03:41 09/22/17 03:41 Additional Labs: Microbiology 09/20/17 17:36 Venous blood - Right Hand Blood Culture - Preliminary NO GROWTH AT 48 HOURS 09/20/17 17:32 Venous blood - Right Arm Blood Culture - Preliminary NO GROWTH AT 48 HOURS Laboratory Tests 09/20/17 09/20/17 09/20/17 14:45 14:45 14:45 WBC 32.9 H Hgb 8.6 L Plt Count 619 H Neutrophils % Neutrophils % (Manual) 78 H Sodium 129 L Lactic Acid 3.4 H 09/21/17 09/21/17 09/21/17 04:06 04:06 04:06 WBC 23.6 H Hgb 7.9 L Plt Count 565 H Neutrophils % 78.4 H Neutrophils % (Manual) Sodium 132 L Lactic Acid 1.7 09/22/17 03:41 WBC Hgb Plt Count Neutrophils % Neutrophils % (Manual) 85 H Sodium Lactic Acid Phys Exam - Physical Examination mild distress HEENT: PERRLA, oral pharynx no lesions Neck: no JVD, supple Respiratory: no wheezing, clear to auscultation bilateral Cardiovascular: RRR Diffuse TTP Gastrointestinal: soft, positive bowel sounds Musculoskeletal: no edema, pulses present Neurological: normal sensation, moves all 4 limbs Psychiatric: A&O x 3 Skin: normal turgor, cap refill <2 seconds Dx/Plan (1) Abdominal pain Code(s): R10.9 - UNSPECIFIED ABDOMINAL PAIN Status: Acute Qualifiers: Abdominal location: generalized Qualified Code(s): R10.84 - Generalized abdominal pain Comment: Secondary to extensive metastatic process, uncontrolled, add Morphine Sulfate 5mg IV q3h prn, increase Duragesic 75mcg TD q3D, [place] 10/325 2 tabs q6hprn (2) Metastatic breast carcinoma Code(s): C50.919 - MALIGNANT NEOPLASM OF UNSP SITE OF UNSPECIFIED FEMALE BREAST ; C79.9 - SECONDARY MALIGNANT NEOPLASM OF UNSPECIFIED SITE Status: Chronic Comment: Currently tx with Xeloda, progression of dz despite chemothx (3) Leukocytosis Code(s): D72.829 - ELEVATED WHITE BLOOD CELL COUNT, UNSPECIFIED Status: Acute Qualifiers: Leukocytosis type: bandemia Qualified Code(s): D72.825 - Bandemia Comment: Secondary to tumor burden and current chemo, continue empiric Zosyn, serial CBC (4) Tobacco abuse Code(s): Z72.0 - TOBACCO USE Status: Chronic Comment: smoking cessation resources, Nicotine patch (5) Hyponatremia Code(s): E87.1 - HYPO-OSMOLALITY AND HYPONATREMIA Status: Acute Comment: Improved with IV NS, poor dietary intake contributing (6) Lactic acidosis Code(s): E87.2 - ACIDOSIS Status: Acute Comment: Multifactorial, improved with IVF's, continue supportive measures (7) Microcytic anemia Code(s): D50.9 - IRON DEFICIENCY ANEMIA, UNSPECIFIED Status: Acute Comment: No evidence of acute blood loss, continue serial monitoring - Plan plan discussed w/ family, continue antibiotics, social work 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
[2017-09-22] MEDS: Morphine IR 10 MG/5 ML UDCUP PO PRN (17:52)
[2017-09-22] MEDS: Enoxaparin Sodium 40 MG/0.4 ML SYRINGE SC SCH (20:04)
[2017-09-23] MEDS: Ondansetron HCl/PF 4 MG/2 ML Vial IVP SCH ×3 (00:19→12:45)
[2017-09-23] MEDS: Morphine IR 10 MG/5 ML UDCUP PO PRN ×5 (00:20→21:32)
[2017-09-23] MEDS: Piperacillin/Tazobactam 3.375 GM, Admixture Fee 1 EACH in Sodium Chloride 0.9% 100 ML IVPB SCH ×4 (01:36→20:51)
[2017-09-23] MEDS: Carvedilol 6.25 MG TAB PO SCH ×2 (08:31→17:02)
[2017-09-23] MEDS: Megestrol Acetate 40 MG TAB PO SCH ×3 (08:31→20:51)
[2017-09-23] MEDS: Famotidine 20 MG TAB PO SCH ×2 (08:31→20:51)
[2017-09-23] MEDS: Polyethylene Glycol 3350 17 GM Packet PO SCH (08:31)
[2017-09-23] MEDS: Morphine ER 30 MG TAB PO SCH ×2 (08:31→20:51)
[2017-09-23] MEDS: Gabapentin 300 MG CAP PO SCH ×2 (08:32→20:51)
[2017-09-23] MEDS ORDERED: CEFAZOLIN/Water 2 GM/20 ML SYRINGE SLOW IVP SCH (12:45)
--- NOTE | 2017-09-23 14:15 | PDOC.PN ---
- Subjective Encounter Start Date: 09/23/17 Encounter Start Time: 14:10 Subjective: f/u for metastatic breast carcinoma with extensive intra-abdominal -: involvement. Pain improved with current regimen. - Objective MAR Reviewed: Yes Vital Signs & Weight: Vital Signs (12 hours) Temp Pulse Resp BP Pulse Ox 09/23/17 08:00 98.8 F 115 H 18 92 L 09/23/17 07:44 98.8 F 115 H 18 130/59 L 94 L 09/23/17 07:37 90 L 09/23/17 07:30 90 L Weight Weight 171 lb 1.259 oz I&O: 09/22/17 09/23/17 09/24/17 06:59 06:59 06:59 Intake Total 4668 4368 Output Total 400 100 Balance 4668 3968 -100 Result Diagrams: 09/22/17 03:41 09/22/17 03:41 Phys Exam - Physical Examination Constitutional: NAD HEENT: PERRLA, oral pharynx no lesions Neck: no JVD, supple Respiratory: no wheezing, clear to auscultation bilateral Cardiovascular: RRR mild TTP diffusely Gastrointestinal: soft, no distention, positive bowel sounds Musculoskeletal: no edema, pulses present Neurological: normal sensation, moves all 4 limbs Psychiatric: A&O x 3 Skin: normal turgor, cap refill <2 seconds Dx/Plan (1) Abdominal pain Code(s): R10.9 - UNSPECIFIED ABDOMINAL PAIN Status: Acute Qualifiers: Abdominal location: generalized Qualified Code(s): R10.84 - Generalized abdominal pain Comment: Secondary to extensive metastatic process, uncontrolled, add Morphine Sulfate 5mg IV q3h prn, increase Duragesic 75mcg TD q3D, [place] 10325 2 tabs q6hprn (2) Metastatic breast carcinoma Code(s): C50.919 - MALIGNANT NEOPLASM OF UNSP SITE OF UNSPECIFIED FEMALE BREAST ; C79.9 - SECONDARY MALIGNANT NEOPLASM OF UNSPECIFIED SITE Status: Chronic Comment: Currently tx with Xeloda, progression of dz despite chemothx (3) Leukocytosis Code(s): D72.829 - ELEVATED WHITE BLOOD CELL COUNT, UNSPECIFIED Status: Acute Qualifiers: Leukocytosis type: bandemia Qualified Code(s): D72.825 - Bandemia Comment: Secondary to tumor burden and current chemo, continue empiric Zosyn, serial CBC (4) Tobacco abuse Code(s): Z72.0 - TOBACCO USE Status: Chronic Comment: smoking cessation resources, Nicotine patch (5) Hyponatremia Code(s): E87.1 - HYPO-OSMOLALITY AND HYPONATREMIA Status: Acute Comment: Improved with IV NS, poor dietary intake contributing (6) Lactic acidosis Code(s): E87.2 - ACIDOSIS Status: Acute Comment: Multifactorial, improved with IVF's, continue supportive measures (7) Microcytic anemia Code(s): D50.9 - IRON DEFICIENCY ANEMIA, UNSPECIFIED Status: Acute Comment: No evidence of acute blood loss, continue serial monitoring - Plan plan discussed w/ family, PT/OT, director social service, out of bed/ambulate, DVT proph w/SCDs Stable overall -: Pain regimen adequate currently -: MUGA scan completed today -: Plan for Mediport placement in am -: Trial Phenergan 25mg po q6h prn * Likely can transition home in 48h
--- NOTE | 2017-09-23 15:29 | NM ---
MUGA SCAN: Date: 09/23/17 HISTORY: Breast cancer, lung cancer, chemotherapy. RADIOPHARMACEUTICAL: 28.4 mCi technetium-99m labeled RBCs injected intravenously. FINDINGS: The left ventricular ejection fraction measures 62%. The wall motion is normal. IMPRESSION: LVEF is 62%. POS: TONG
[2017-09-23] MEDS: Sodium Chloride 0.9% 1,000 ML IV SCH ×2 (17:09→20:50)
--- NOTE | 2017-09-23 20:41 | CON ---
DATE OF CONSULTATION: 09/23/2017 HISTORY OF PRESENT ILLNESS: Khushbu Forte is admitted to this Hospitalist Service for abdomi nal pain. CAT scan revealed evidence of advanced breast metastasis. The patient has been seen by O ncology and I have been asked to place a MediPort for neoadjuvant therapy. She has a history of lum pectomy, chemoradiation for triple negative right breast cancer. This was treated in 2010 for chemo radiation lumpectomy. She has since developed metastasis to the lung and right hilar nodes, and ple ura, on Xeloda orally for the last six weeks, but has been nonresponsive. PAST MEDICAL HISTORY: Triple negative breast cancer, osteoporosis, hypertension, arthritis, asthma, coronary artery disease with history of stent placement. PAST SURGICAL HISTORY: Appendectomy, lumpectomy, breast cancer, chemoradiation therapy, cholecystec diego, and laparoscopy. ALLERGIES: None. MEDICATIONS: Hydrocodone, Ultram, transdermal fentanyl patch, and Xeloda. SOCIAL HISTORY: Three children. She smokes daily, does not use alcohol or drugs. REVIEW OF SYSTEMS: Ten-point noncontributory. PHYSICAL EXAMINATION: VITAL SIGNS: Height 5 feet 4 inches, 171 pounds, 29 BMI. HEENT: Unremarkable. LUNGS: Clear to auscultation. CARDIAC: Regular rate and rhythm without murmur or gallop. ABDOMEN: Soft, nontender. EXTREMITIES: Unremarkable. LABORATORY DATA: White count 17, hemoglobin 7.6. Basic metabolic profile unremarkable. ASSESSMENT: Metastatic triple negative breast cancer, refractory to Xeloda. PLAN: Placement of a MediPort for neoadjuvant chemotherapy access, plan is tomorrow. Risk and bene fits discussed. Questions answered.
[2017-09-23] MEDS: Enoxaparin Sodium 40 MG/0.4 ML SYRINGE SC SCH (20:52)
[2017-09-24] MEDS: Piperacillin/Tazobactam 3.375 GM, Admixture Fee 1 EACH in Sodium Chloride 0.9% 100 ML IVPB SCH ×4 (01:50→19:55)
[2017-09-24] MEDS: Morphine IR 10 MG/5 ML UDCUP PO PRN ×4 (01:50→21:12)
[2017-09-24] MEDS: Carvedilol 6.25 MG TAB PO SCH ×2 (05:53→16:46)
[2017-09-24] MEDS: Gabapentin 300 MG CAP PO SCH ×2 (08:20→20:03)
[2017-09-24] MEDS: Famotidine 20 MG TAB PO SCH ×2 (08:20→20:01)
[2017-09-24] MEDS: Morphine ER 30 MG TAB PO SCH ×2 (08:21→20:01)
[2017-09-24] MEDS: Megestrol Acetate 40 MG TAB PO SCH ×3 (08:21→20:01)
[2017-09-24] MEDS: Polyethylene Glycol 3350 17 GM Packet PO SCH (08:21)
[2017-09-24] MEDS ORDERED: Lidocaine 2% w/Epinephrine 1:200K 20 ML VIAL ONE (09:11)
[2017-09-24] MEDS ORDERED: Bupivacaine PF 0.5% 30 ML VIAL ONE (09:11)
[2017-09-24] MEDS ORDERED: Midazolam HCl 2 mg/2 ml Vial ONE (09:52)
[2017-09-24] MEDS ORDERED: Fentanyl 100 MCG/2 ML VIAL ONE (09:52)
[2017-09-24] MEDS ORDERED: Propofol 200 MG/20 ML VIAL ONE (10:12)
[2017-09-24] MEDS ORDERED: Promethazine HCl 25 MG/ML VIAL IM PRN (10:44)
[2017-09-24] MEDS ORDERED: Ondansetron HCl/PF 4 MG/2 ML Vial IVP PRN (10:44)
[2017-09-24] MEDS ORDERED: Promethazine HCl 25 MG/ML VIAL SLOW IVP PRN (10:44)
[2017-09-24] MEDS: fentaNYL 75 mcg/hour Patch TD SCH (12:06)
--- NOTE | 2017-09-24 12:16 | OP ---
PREOPERATIVE DIAGNOSES: Metastatic breast cancer refracted oral chemotherapy, and the patient in ne ed of intravenous antineoplastic chemotherapy access. POSTOPERATIVE DIAGNOSES: Metastatic breast cancer refracted oral chemotherapy, and the patient in n eed of intravenous antineoplastic chemotherapy access. PROCEDURE: Right subclavian vein standard profile MediPort. SURGEON: Nic Dorsey M.D. ANESTHESIA: Intravenous sedation and local 0.5% Marcaine, 30 mL mixed with 2% Xylocaine, with epine phrine 10 mL Fluoroscopy used. PROCEDURE IN DETAIL: The patient taken to the operating room, where under intravenous sedation, nec k and chest were prepared with chloraprep, draped in routine fashion. Local anesthetic mixture infi ltrated into skin and subcutaneous tissue about the operative site. Trocar catheter cannulated the subclavian vein infraclavicular approach right. Good return of venous blood obtained. J-wire threa ded, trocar catheter removed. Skin incised and enlarged sharply through skin and subcutaneous tissu e and a subcutaneous pocket made to accommodate the MediPort. Dilator and pull-away sheath placed o vidya the J-wire into the subclavian vein and superior vena cava. The dilator and J-wire removed. Ca theter placed with a pull-away sheath. Pull-away sheath removed. Fluoroscopically, the catheter no colleen to go into the left internal jugular vein and thus fluoroscopy used to place the J-wire and sage pulate the catheter into the superior vena cava placed in the tip in optimal position, removing the J-wire, securing the catheter to length, connected to the MediPort, secured in the MediPort in subcu taneous pocket with 2 interrupted suture of 3-0 Prolene. Subcutaneous tissues approximated with 3-0 Monocryl, skin with subdermal 4-0 Monocryl and DermaGlue applied as the MediPort was accessed with Hurtado needle, aspirated blood, flushed with saline solution. Heparinized saline solution. Patient tolerated the procedure well. Final fluoroscopic images revealed good line placement and MediPort p lacement.
[2017-09-24] MEDS: Sodium Chloride 0.9% 1,000 ML IV SCH (14:02)
--- NOTE | 2017-09-24 14:43 | RAD ---
PORTABLE CHEST ONE VIEW: 09/24/2017 11:07 a.m. HISTORY: Mediport placement. COMPARISON: 07/13/2017 FINDINGS: There has been interval placement of a right subclavian Port-A-Cath, with the tip in the projection of the right atrium. No pneumothoraces are seen. There is elevation of the right hemidiaphragm, wh ich is worse compared to that of 07/13/2017. There is a plate of atelectatic change in the right mi d lung. Surgical clips in the right axilla are again seen. The heart size is normal. The left justo g is clear. POS: [facility]
--- NOTE | 2017-09-24 16:27 | PDOC.PN ---
- Subjective Encounter Start Date: 09/24/17 Encounter Start Time: 15:30 Pt seen for followup re: pain. Denies chest pain. Abdo pain better. No nausea or vomiting. - Objective MAR Reviewed: Yes Vital Signs & Weight: Vital Signs (12 hours) Temp Pulse Resp BP Pulse Ox 09/24/17 08:00 98.7 F 103 H 20 09/24/17 07:00 98.7 F 103 H 20 108/56 L 96 Weight Weight 171 lb 1.259 oz I&O: 09/23/17 09/24/17 09/25/17 06:59 06:59 06:59 Intake Total 4368 3900 Output Total 400 100 Balance 3968 3800 Result Diagrams: 09/22/17 03:41 09/22/17 03:41 Phys Exam - Physical Examination Constitutional: NAD HEENT: moist MMs Neck: supple Respiratory: clear to auscultation bilateral Cardiovascular: RRR R chest wall mediport Gastrointestinal: soft Musculoskeletal: pulses present Neurological: moves all 4 limbs Psychiatric: normal affect Dx/Plan (1) Pain Code(s): R52 - PAIN, UNSPECIFIED Status: Acute (2) GERD (gastroesophageal reflux disease) Code(s): K21.9 - GASTRO-ESOPHAGEAL REFLUX DISEASE WITHOUT ESOPHAGITIS Status: Chronic Qualifiers: Esophagitis presence: esophagitis presence not specified Qualified Code(s) : K21.9 - Gastro-esophageal reflux disease without esophagitis (3) HTN (hypertension) Code(s): I10 - ESSENTIAL (PRIMARY) HYPERTENSION Status: Chronic Qualifiers: Hypertension type: essential hypertension Qualified Code(s): I10 - Essential (primary) hypertension (4) Metastatic breast carcinoma Code(s): C50.919 - MALIGNANT NEOPLASM OF UNSP SITE OF UNSPECIFIED FEMALE BREAST ; C79.9 - SECONDARY MALIGNANT NEOPLASM OF UNSPECIFIED SITE Status: Chronic - Plan * . Pt had mediport today, will start chemo later today. Continue beta mich. Review of Systems - Review of Systems Constitutional: negative: Fever, Chills, Sweats, Weakness, Malaise Respiratory: negative: Cough, Dry, Shortness of Breath, Hemoptysis, SOB with Excertion, Pleuritic Pain, Sputum, Wheezing Cardiovascular: negative: Chest Pain, Palpitations, Orthopnea, Paroxysmal Noc. Dyspnea, Edema, Light Headedness - Medications/Allergies Allergies/Adverse Reactions: Allergies Allergy/AdvReac Type Severity Reaction Status Date / Time No Known Allergies Allergy Verified 08/18/17 23:54 Medications: Current Medications Carvedilol (Coreg) 6.25 mg PO BID-WM [facility] Last Admin: 09/24/17 05:53 Dose: 6.25 mg Cefazolin Sodium (Ancef) 2 gm SLOW IVP WILLCALL [facility] Enoxaparin Sodium (Lovenox) 40 mg SC 2100 [facility] Last Admin: 09/23/17 20:52 Dose: 40 mg Famotidine (Pepcid) 20 mg PO BID [facility] Last Admin: 09/24/17 08:20 Dose: Not Given Fentanyl (Duragesic) 75 mcg TD Q3D [facility] Last Admin: 09/24/17 12:06 Dose: 75 mcg Gabapentin (Neurontin) 300 mg PO BID [facility] Last Admin: 09/24/17 08:20 Dose: Not Given Piperacillin Sod/Tazobactam Sod 3.375 gm/ Miscellaneous Medication 1 each/ Sodium Chloride 100 mls @ 200 mls/hr IVPB Q6H [facility] Last Admin: 09/24/17 14:02 Dose: 100 mls Sodium Chloride (Normal Saline 0.9%) 1,000 mls @ 100 mls/hr IV .Q10H [facility] Last Admin: 09/24/17 14:02 Dose: 1,000 mls Megestrol Acetate (Megace) 40 mg PO TID [facility] Last Admin: 09/24/17 14:02 Dose: 40 mg Morphine Sulfate (Ms Contin) 30 mg PO Q12HR [facility] Last Admin: 09/24/17 08:21 Dose: Not Given Morphine Sulfate (Morphine Sulfate Ir) 15 mg PO Q4H PRN PRN Reason: Moderate Pain (4-6) Last Admin: 09/24/17 12:08 Dose: 15 mg Morphine Sulfate (Morphine) 4 mg SLOW IVP Q4H PRN PRN Reason: Severe Pain (7-10) Last Admin: 09/24/17 07:48 Dose: 4 mg Ondansetron HCl (Zofran Odt) 4 mg PO Q6H PRN PRN Reason: Nausea/Vomiting Last Admin: 09/22/17 11:35 Dose: 4 mg Polyethylene Glycol (Miralax) 17 gm PO DAILY [facility] Last Admin: 09/24/17 08:21 Dose: Not Given Promethazine HCl (Phenergan) 25 mg PO Q6H PRN PRN Reason: Nausea/Vomiting Sodium Chloride (Flush - Normal Saline) 10 ml IVF Q12HR [facility] Last Admin: 09/24/17 08:21 Dose: Not Given Sodium Chloride (Flush - Normal Saline) 10 ml IVF PRN PRN PRN Reason: Saline Flush Zolpidem Tartrate (Ambien) 5 mg PO HSPRN PRN PRN Reason: Insomnia Last Admin: 09/20/17 22:14 Dose: 5 mg
[2017-09-24] MEDS ORDERED: Morphine IR Tab 15 MG TAB PO SCH (18:15)
[2017-09-24] MEDS ORDERED: Morphine 10 MG/0.5 ML ORAL SYRINGE SL SCH (18:30)
[2017-09-24] MEDS ORDERED: Morphine IR 10 MG/5 ML UDCUP PO SCH (18:30)
[2017-09-24] MEDS: Enoxaparin Sodium 40 MG/0.4 ML SYRINGE SC SCH (19:58)
[2017-09-25] MEDS: Sodium Chloride 0.9% 1,000 ML IV SCH ×3 (00:53→20:47)
[2017-09-25] MEDS: Morphine IR 10 MG/5 ML UDCUP PO PRN ×5 (02:10→21:59)
[2017-09-25] MEDS: Piperacillin/Tazobactam 3.375 GM, Admixture Fee 1 EACH in Sodium Chloride 0.9% 100 ML IVPB SCH ×2 (02:18→08:55)
[2017-09-25 08:23] LABS: ALT (SGPT) 11 U/L (8-55); AST (SGOT) 16 U/L (5-34); Alkaline Phosphatase 73 U/L (40-150); Anion Gap 10 mmol/L (10-20); BUN (Urea Nitrogen) Less than 4 mg/dL (9.8-20.1); Bilirubin, Total 0.3 mg/dL (0.2-1.2); Calc. Creatinine Clearance 148 mL/min (70-130); Calcium 8.2 mg/dL (7.8-10.44); Carbon Dioxide 25 mmol/L (22-29); Chloride 106 mmol/L (98-107); Estimated GFR-MDRD Greater than 90; Globulin 2.4 g/dL (2.4-3.5); LDH 242 U/L (125-220); Protein, Total 4.9 g/dL (6.0-8.3); Uric Acid 2.8 mg/dL (2.6-6.0)
[2017-09-25 08:34] LABS: #Eosinphils 0.1 thou/uL (0.0-0.7); #Lymphocytes 2.1 thou/uL (1.20-3.40); #Monocytes 1.5 thou/uL (0.11-0.59); #Neutrophils 14.5 thou/uL (1.40-6.50); %Eosinophils 0.7 % (0.0-10.0); %Lymphocytes 11.3 % (21.0-51.0); %Monocytes 8.3 % (0.0-10.0); Anisocytosis MODERATE=16-30 cells (100X) (0-5/hpf); Hematocrit 21.8 % (36.0-47.0); Hypochromia MODERATE=16-30 cells (100X) (0-5/hpf); Macrocytosis SLIGHT = 6-15 cells (100X) (0-5/hpf); Microcytosis SLIGHT = 6-15 cells (100X) (0-5/hpf); Polychromasia SLIGHT = 2-3 cells (100X) (0-2/hpf); Red Blood Cell (RBC) Count 3.07 mill/uL (4.20-5.40); White Blood Cell (WBC) Count 18.2 thou/uL (4.8-10.8)
[2017-09-25] MEDS: Morphine ER 30 MG TAB PO SCH (08:56)
[2017-09-25] MEDS: Megestrol Acetate 40 MG TAB PO SCH ×3 (08:57→20:27)
[2017-09-25] MEDS: Carvedilol 6.25 MG TAB PO SCH ×2 (08:57→17:29)
[2017-09-25] MEDS: Gabapentin 300 MG CAP PO SCH ×2 (08:57→20:27)
[2017-09-25] MEDS: Famotidine 20 MG TAB PO SCH ×2 (08:57→20:28)
[2017-09-25] MEDS: Polyethylene Glycol 3350 17 GM Packet PO SCH (08:58)
--- NOTE | 2017-09-25 09:45 | PDOC.PN ---
- Subjective Encounter Start Date: 09/25/17 Encounter Start Time: 07:00 Pt seen for followup re: pain. says abdo pain better. No nausea or vomiting. Had right foot pain, better. - Objective MAR Reviewed: Yes Vital Signs & Weight: Vital Signs (12 hours) Temp Pulse Resp BP BP Pulse Ox 09/25/17 08:57 110/53 L 09/25/17 08:00 97.5 F L 112 H 18 100 09/25/17 07:00 97.5 F L 112 H 18 110/53 L 100 09/25/17 05:22 95 09/25/17 01:00 97.9 F 105 H 18 115/55 L 95 Weight Weight 171 lb I&O: 09/24/17 09/25/17 09/26/17 06:59 06:59 06:59 Intake Total 3900 1400 Output Total 100 Balance 3800 1400 Result Diagrams: 09/25/17 07:50 09/25/17 07:50 Phys Exam - Physical Examination Constitutional: NAD HEENT: moist MMs, oral pharynx no lesions Neck: supple Respiratory: clear to auscultation bilateral Cardiovascular: RRR MediPort Gastrointestinal: soft, non-tender, positive bowel sounds Musculoskeletal: pulses present Neurological: moves all 4 limbs Psychiatric: normal affect Skin: no rash Dx/Plan (1) Pain Code(s): R52 - PAIN, UNSPECIFIED Status: Acute (2) GERD (gastroesophageal reflux disease) Code(s): K21.9 - GASTRO-ESOPHAGEAL REFLUX DISEASE WITHOUT ESOPHAGITIS Status: Chronic Qualifiers: Esophagitis presence: esophagitis presence not specified Qualified Code(s) : K21.9 - Gastro-esophageal reflux disease without esophagitis (3) HTN (hypertension) Code(s): I10 - ESSENTIAL (PRIMARY) HYPERTENSION Status: Chronic Qualifiers: Hypertension type: essential hypertension Qualified Code(s): I10 - Essential (primary) hypertension (4) Metastatic breast carcinoma Code(s): C50.919 - MALIGNANT NEOPLASM OF UNSP SITE OF UNSPECIFIED FEMALE BREAST ; C79.9 - SECONDARY MALIGNANT NEOPLASM OF UNSPECIFIED SITE Status: Chronic - Plan PT/OT, out of bed/ambulate, DVT proph w/lovenox * . Had mediport placed yesterday. Awaiting chemotherapy today. Discontinue Zosyn, cultures negative so far. Continue PPI. Likely home 1-2 days. Review of Systems - Review of Systems Constitutional: negative: Fever, Chills, Sweats, Weakness, Malaise Respiratory: negative: Cough, Dry, Shortness of Breath, Hemoptysis, SOB with Excertion, Pleuritic Pain, Sputum, Wheezing Cardiovascular: negative: Chest Pain, Palpitations, Orthopnea, Paroxysmal Noc. Dyspnea, Edema, Light Headedness - Medications/Allergies Allergies/Adverse Reactions: Allergies Allergy/AdvReac Type Severity Reaction Status Date / Time No Known Allergies Allergy Verified 08/18/17 23:54 Medications: Current Medications Carvedilol (Coreg) 6.25 mg PO BID-WM [facility] Last Admin: 09/25/17 08:57 Dose: 6.25 mg Cefazolin Sodium (Ancef) 2 gm SLOW IVP WILLCALL [facility] Enoxaparin Sodium (Lovenox) 40 mg SC 2100 [facility] Last Admin: 09/24/17 19:58 Dose: 40 mg Famotidine (Pepcid) 20 mg PO BID [facility] Last Admin: 09/25/17 08:57 Dose: 20 mg Fentanyl (Duragesic) 75 mcg TD Q3D [facility] Last Admin: 09/24/17 12:06 Dose: 75 mcg Gabapentin (Neurontin) 300 mg PO BID [facility] Last Admin: 09/25/17 08:57 Dose: 300 mg Piperacillin Sod/Tazobactam Sod 3.375 gm/ Miscellaneous Medication 1 each/ Sodium Chloride 100 mls @ 200 mls/hr IVPB Q6H [facility] Last Admin: 09/25/17 08:55 Dose: 100 mls Sodium Chloride (Normal Saline 0.9%) 1,000 mls @ 100 mls/hr IV .Q10H [facility] Last Admin: 09/25/17 00:53 Dose: 1,000 mls Megestrol Acetate (Megace) 40 mg PO TID [facility] Last Admin: 09/25/17 08:57 Dose: 40 mg Morphine Sulfate (Ms Contin) 30 mg PO Q12HR [facility] Last Admin: 09/25/17 08:56 Dose: 30 mg Morphine Sulfate (Morphine Sulfate Ir) 15 mg PO Q4H PRN PRN Reason: Moderate Pain (4-6) Last Admin: 09/25/17 06:38 Dose: 15 mg Morphine Sulfate (Morphine) 4 mg SLOW IVP Q4H PRN PRN Reason: Severe Pain (7-10) Last Admin: 09/24/17 07:48 Dose: 4 mg Ondansetron HCl (Zofran Odt) 4 mg PO Q6H PRN PRN Reason: Nausea/Vomiting Last Admin: 09/22/17 11:35 Dose: 4 mg Polyethylene Glycol (Miralax) 17 gm PO DAILY [facility] Last Admin: 09/25/17 08:58 Dose: Not Given Promethazine HCl (Phenergan) 25 mg PO Q6H PRN PRN Reason: Nausea/Vomiting Sodium Chloride (Flush - Normal Saline) 10 ml IVF Q12HR [facility] Last Admin: 09/25/17 08:58 Dose: Not Given Sodium Chloride (Flush - Normal Saline) 10 ml IVF PRN PRN PRN Reason: Saline Flush Zolpidem Tartrate (Ambien) 5 mg PO HSPRN PRN PRN Reason: Insomnia Last Admin: 09/20/17 22:14 Dose: 5 mg
[2017-09-25] MEDS ORDERED: DOXORUBICIN SLOW IVP SCH (10:00)
[2017-09-25] MEDS ORDERED: Dexamethasone 20 MG in Sodium Chloride 0.9% 50 ML IVPB SCH (10:00)
[2017-09-25] MEDS ORDERED: Cyclophosphamide 1 GM in Sodium Chloride 0.9% 250 ML 250 ML IVPB SCH (10:00)
[2017-09-25] MEDS ORDERED: PALONOSETRON HCL IVP SCH (10:00)
[2017-09-25] MEDS: Morphine ER 15 MG TAB PO SCH (20:27)
[2017-09-25] MEDS: Enoxaparin Sodium 40 MG/0.4 ML SYRINGE SC SCH (20:44)
[2017-09-26] MEDS: Morphine IR 10 MG/5 ML UDCUP PO PRN ×2 (01:45→05:37)
[2017-09-26] MEDS: Sodium Chloride 0.9% 1,000 ML IV SCH (05:28)
[2017-09-26 06:07] LABS: Band 2 % (5-11); Hematocrit 29.3 % (36.0-47.0); Hypochromia MODERATE=16-30 cells (100X) (0-5/hpf); Neutrophil 93 % (42-75); White Blood Cell (WBC) Count 29.2 thou/uL (4.8-10.8)
--- NOTE | 2017-09-26 07:48 | PDOC.PN ---
- Subjective Encounter Start Date: 09/26/17 Encounter Start Time: 07:46 Subjective: NO NEW COMPLAINTS. TOLERATED CHEMOTX YESTERDAY, NO N/V - Objective MAR Reviewed: Yes Vital Signs & Weight: Vital Signs (12 hours) Temp Pulse Pulse Resp BP BP Pulse Ox 09/26/17 05:42 97 F L 99 18 118/58 L 100 09/25/17 23:26 98.1 F 90 18 118/56 L 96 09/25/17 21:30 98.3 F 95 18 114/59 L 09/25/17 21:13 97.8 F 92 18 110/54 L 09/25/17 20:30 97.8 F 92 18 110/54 L 97 09/25/17 20:00 97.8 F 92 92 18 110/54 L 97 Weight Weight 171 lb I&O: 09/25/17 09/26/17 09/27/17 06:59 06:59 06:59 Intake Total 1400 3060 Balance 1400 3060 Result Diagrams: 09/26/17 05:32 09/25/17 07:50 Radiology Reviewed by me: Yes Phys Exam - Physical Examination Constitutional: NAD HEENT: PERRLA, moist MMs, sclera anicteric Neck: supple, full ROM Respiratory: clear to auscultation bilateral SINUS TACHY, MEDIPORT IN PLACE Gastrointestinal: soft, non-tender Musculoskeletal: no edema, pulses present Neurological: non-focal, normal sensation, moves all 4 limbs Psychiatric: normal affect, A&O x 3 Skin: no rash Dx/Plan (1) Leukocytosis Code(s): D72.829 - ELEVATED WHITE BLOOD CELL COUNT, UNSPECIFIED Status: Acute Comment: Secondary to tumor burden and current chemo, continue empiric Zosyn , serial CBC (2) Pain Code(s): R52 - PAIN, UNSPECIFIED Status: Chronic (3) Abdominal pain Code(s): R10.9 - UNSPECIFIED ABDOMINAL PAIN Status: Acute Qualifiers: Abdominal location: generalized Qualified Code(s): R10.84 - Generalized abdominal pain Comment: Secondary to extensive metastatic process, uncontrolled, add Morphine Sulfate 5mg IV q3h prn, increase Duragesic 75mcg TD q3D, [place] 10/325 2 tabs q6hprn (4) GERD (gastroesophageal reflux disease) Code(s): K21.9 - GASTRO-ESOPHAGEAL REFLUX DISEASE WITHOUT ESOPHAGITIS Status: Chronic Qualifiers: Esophagitis presence: esophagitis presence not specified Qualified Code(s) : K21.9 - Gastro-esophageal reflux disease without esophagitis (5) HTN (hypertension) Code(s): I10 - ESSENTIAL (PRIMARY) HYPERTENSION Status: Chronic Qualifiers: Hypertension type: essential hypertension Qualified Code(s): I10 - Essential (primary) hypertension (6) Metastatic breast carcinoma Code(s): C50.919 - MALIGNANT NEOPLASM OF UNSP SITE OF UNSPECIFIED FEMALE BREAST ; C79.9 - SECONDARY MALIGNANT NEOPLASM OF UNSPECIFIED SITE Status: Chronic - Plan cont current plan of long-term ONCE CLEARED BY ONCOLOGY * .
[2017-09-26] MEDS ORDERED: Morphine IR Tab 15 MG TAB PO PRN (08:02)
[2017-09-26 08:23] VITALS: BP 120/58; TEMP 98.3
[2017-09-26] MEDS: Morphine ER 15 MG TAB PO SCH (08:45)
[2017-09-26] MEDS: Polyethylene Glycol 3350 17 GM Packet PO SCH (08:46)
[2017-09-26] MEDS: Carvedilol 6.25 MG TAB PO SCH (08:47)
[2017-09-26] MEDS: Gabapentin 300 MG CAP PO SCH (08:48)
[2017-09-26] MEDS: Megestrol Acetate 40 MG TAB PO SCH ×2 (08:48→15:44)
[2017-09-26] MEDS: Famotidine 20 MG TAB PO SCH (08:48)
[2017-09-26] MEDS ORDERED: fentaNYL 75 mcg/hour Patch TD SCH (12:45)
[2017-09-26] MEDS ORDERED: Insulin Regular 300 UNITS/3 ML VIAL ONE (14:44)
--- NOTE | 2017-09-26 17:42 | DIS ---
DATE OF ADMISSION: 09/20/2017 DATE OF DISCHARGE: 09/26/2017 CHIEF COMPLAINT: Abdominal pain. PRIMARY DISCHARGE DIAGNOSES: 1. Metastatic breast cancer. 2. Intractable pain. HOSPITAL COURSE: The patient was admitted on 09/20/2017 secondary to complaints of severe abdominal pain despite her home pain regimen. The patient was seen and assessed by the Oncology Service. Th e patient was also prepped and received a MediPort placement for IV chemotherapeutics. The patient' s home pain regimen was altered to increase her fentanyl patch to 75 mcg every day as well as MS Amado castellano. The patient had better pain control with the increased pain medications. She was also treated with IV chemo therapeutics on 09/25/2017. This included cyclophosphamide, dexamethasone and doxoru bicin. The patient tolerated the MediPort placement and the IV chemotherapeutics well. She was sissy med stable for discharge for the Oncology Service with close followup scheduled for Wednesday09/28/20 17. CONSULTANTS: Once again, Oncology Department. PROCEDURES: MediPort placement. DISPOSITION: To home. DISCHARGE DIET: Heart healthy. DISCHARGE MEDICATIONS: Please see medication rec list. PHYSICAL EXAMINATION: GENERAL: She is in no acute distress. HEAD: Normocephalic, atraumatic. LUNGS: Clear to auscultation. CARDIAC: Regular rate and rhythm. ABDOMEN: Slight tenderness with deep palpation. EXTREMITIES: No clubbing, cyanosis or edema. FOLLOWUP: The patient has a followup appointment with Dr. Young scheduled for this 09/28. DISCHARGE ACTIVITY: She is to resume her home medication regimen and follow up with her PCP and Onc ology as directed.
== END 2017-09-26 15:43 | disposition home or self-care (01) | DRG 598 ==
LOC: ERS 13:59 → ONC 18:55 → OBSVTOIN 18:55 → INTOOBSV 18:55
PROVIDERS: ADMIT Internal Medicine Infectious Disease; ATTEND Internal Medicine Infectious Disease
PROC: 05H533Z Insertion of Infusion Device into Right Subclavian Vein, Percutaneous Approach (ICD-10-PCS; principal; 2017-09-24)
DX: C79.81 Secondary malignant neoplasm of breast (principal); C77.1 Secondary and unspecified malignant neoplasm of intrathoracic lymph nodes; C78.00 Secondary malignant neoplasm of unspecified lung; C79.2 Secondary malignant neoplasm of skin; E87.2 Acidosis; E87.1 Hypo-osmolality and hyponatremia; D63.0 Anemia in neoplastic disease; G89.3 Neoplasm related pain (acute) (chronic); I10 Essential (primary) hypertension; I25.10 Atherosclerotic heart disease of native coronary artery without angina pectoris; D72.89 Other specified disorders of white blood cells; K21.9 Gastro-esophageal reflux disease without esophagitis; D50.9 Iron deficiency anemia, unspecified; Z85.3 Personal history of malignant neoplasm of breast; Z90.11 Acquired absence of right breast and nipple; Z92.21 Personal history of antineoplastic chemotherapy; Z72.0 Tobacco use; Z80.3 Family history of malignant neoplasm of breast; Z80.8 Family history of malignant neoplasm of other organs or systems
CPT/HCPCS: 36415; 36430; 71010; 74177; 76001; 78472; 80048; 80053; 81003; 82150; 83605; 83615; 83690; 84550; 85007; 85025; 85027; 86850; 86900; 86901; 87040; 93005; 96361; 96365; 96375; A4216; A9604; C1788; J1100; J1200; J1642; J1650; J1815; J2250; J2270; J2405; J2469; J2543; J2704; J3010; J3370; J7050; J9000; J9070; P9016; Q0162; S0020; S0179

== ENCOUNTER 2017-09-28 12:35 | Emergency (ER) | payer OTHER ==
[2017-09-28 13:37] LABS: Hematocrit 30.8 % (36.0-47.0); Mean Platelet Volume 9.5 fL (7.4-10.4); Red Blood Cell (RBC) Count 3.95 mill/uL (4.20-5.40); White Blood Cell (WBC) Count 18.8 thou/uL (4.8-10.8)
[2017-09-28 13:40] LABS: PTT 27.2 SEC (22.9-36.1); Prothrombin Time 16.8 SEC (12.0-14.7)
[2017-09-28 13:56] LABS: ALT (SGPT) 7 U/L (8-55); AST (SGOT) 13 U/L (5-34); Alkaline Phosphatase 69 U/L (40-150); Anion Gap 12 mmol/L (10-20); BUN (Urea Nitrogen) 4 mg/dL (9.8-20.1); Bilirubin, Total 0.5 mg/dL (0.2-1.2); CK (CPK) 19 U/L (29-168); Calc. Creatinine Clearance 0 mL/min (70-130); Calcium 8.8 mg/dL (7.8-10.44); Carbon Dioxide 31 mmol/L (22-29); Chloride 100 mmol/L (98-107); Estimated GFR-MDRD Greater than 90; Globulin 2.9 g/dL (2.4-3.5); Protein, Total 5.6 g/dL (6.0-8.3)
[2017-09-28 14:10] LABS: #Eosinphils 0.1 thou/uL (0.0-0.7); #Lymphocytes 0.9 thou/uL (1.20-3.40); #Monocytes 0.2 thou/uL (0.11-0.59); #Neutrophils 17.6 thou/uL (1.40-6.50); %Basophils 0.2 % (0.0-1.0); %Eosinophils 0.6 % (0.0-10.0); %Lymphocytes 4.5 % (21.0-51.0); %Monocytes 1.1 % (0.0-10.0); Anisocytosis MODERATE=16-30 cells (100X) (0-5/hpf); Hypochromia MODERATE=16-30 cells (100X) (0-5/hpf)
[2017-09-28 14:10] LABS: Troponin I 0.037 ng/mL (< 0.028)
--- NOTE | 2017-09-28 14:49 | RAD ---
CHEST ONE VIEW: History: Breast cancer with metastasis. Comparison: 09-24-17 FINDINGS: Port catheter with tip at the inferior SVC. Right layering pleural effusions increasing. Airspace op acities in both lungs are increasing. No pneumothorax. There are nodular densities in the right lower lobe and left lower lobe. IMPRESSION: 1. Worsening opacities right lower lobe and left lobe probably sequellae of pulmonary edema or infec tion. 2. Extensive metastatic disease. POS: [facility]
[2017-09-28] MEDS ORDERED: Potassium Chloride 20 MEQ TAB ONE (15:28)
--- NOTE | 2017-10-09 14:19 | EKG ---
Test Reason : Blood Pressure : / mmHG Vent. Rate : 106 BPM Atrial Rate : 106 BPM P-R Int : 148 ms QRS Dur : 076 ms QT Int : 350 ms P-R-T Axes : 059 043 041 degrees QTc Int : 464 ms Sinus tachycardia Otherwise normal ECG Confirmed by SHEMAR RAMSEY ([id number]), commissioning editor SILAS AGGARWAL ([id number]) on 10/09/2017 2:18:37 PM Referred By: Confirmed By:SHEMAR RAMSEY
== END 2017-09-28 16:30 | disposition home or self-care (01) ==
LOC: ERS 12:35
DX: R13.10 Dysphagia, unspecified (principal); E87.6 Hypokalemia; D72.829 Elevated white blood cell count, unspecified; R74.8 Abnormal levels of other serum enzymes; I25.10 Atherosclerotic heart disease of native coronary artery without angina pectoris; M19.90 Unspecified osteoarthritis, unspecified site; I10 Essential (primary) hypertension; J45.909 Unspecified asthma, uncomplicated; E11.9 Type 2 diabetes mellitus without complications
CPT/HCPCS: 36415; 71010; 80053; 82550; 82553; 84484; 85025; 85610; 85730; 93005; 94640; 96360; J1642; J7620

== ENCOUNTER 2017-09-30 17:43 | Inpatient (IN) | payer OTHER ==
[2017-09-30] MEDS ORDERED: Morphine IR Tab 15 MG TAB PO PRN (18:12)
[2017-09-30 19:23] VITALS: BMI 30.5
[2017-09-30] MEDS ORDERED: Mag-Al 1200 mg/1200 mg/30 ML UDCUP PO PRN (19:40)
[2017-09-30] MEDS ORDERED: Ondansetron ODT 4 MG TAB PO PRN (19:40)
[2017-09-30] MEDS ORDERED: Enoxaparin Sodium 80 MG/0.8 ML SYRINGE SC SCH (20:00)
[2017-09-30] MEDS: fentaNYL 100 mcg/hour Patch TD SCH (20:47)
[2017-09-30] MEDS: HYDROcodone/Acetaminophen 10/325 mg Tablet PO PRN (20:57)
[2017-09-30] MEDS: Gabapentin 300 MG CAP PO SCH (21:00)
[2017-09-30] MEDS ORDERED: CAPECITABINE PO SCH (21:00)
[2017-09-30] MEDS: Famotidine 20 MG TAB PO SCH (21:00)
[2017-09-30] MEDS: Docusate 100 MG CAP PO SCH (21:00)
--- NOTE | 2017-09-30 22:49 | ULT ---
RIGHT UPPER QUADRANT VENOUS ULTRASOUND 09/30/17 INDICATION: Pain and edema in the right upper extremity; history of Mediport placement of the right chest for ch emo with history of right breast and lung cancer. FINDINGS: Prominent lymph node is seen within the right neck base measuring 1.75 x 0.8 cm. There is appropriat e flow seen within the right internal jugular, right subclavian vein, right basilic vein, right brac hial vein, right radial and ulnar veins. Within the region of the mid upper arm. there is an 8.5 x 4 .4 x 4.7 cm solid mass. IMPRESSION: 1. Solid mass within the soft tissues of the upper arm is suspicious for metastatic disease. 2. No venous thrombus seen within the venous structures of the right upper extremity. 3. Prominent lymph node within the right neck base. POS: [facility]
[2017-09-30 22:50] LABS: #Eosinphils 0.1 thou/uL (0.0-0.7); #Lymphocytes 1.3 thou/uL (1.20-3.40); #Monocytes 0.1 thou/uL (0.11-0.59); #Neutrophils 13.3 thou/uL (1.40-6.50); %Basophils 0.1 % (0.0-1.0); %Eosinophils 0.7 % (0.0-10.0); %Lymphocytes 8.6 % (21.0-51.0); %Monocytes 0.7 % (0.0-10.0); Hematocrit 28.3 % (36.0-47.0); Mean Platelet Volume 9.8 fL (7.4-10.4); Red Blood Cell (RBC) Count 3.61 mill/uL (4.20-5.40); White Blood Cell (WBC) Count 14.7 thou/uL (4.8-10.8)
[2017-09-30 23:03] LABS: ALT (SGPT) Less than 7 U/L (8-55); AST (SGOT) 11 U/L (5-34); Alkaline Phosphatase 62 U/L (40-150); Anion Gap 16 mmol/L (10-20); BUN (Urea Nitrogen) 6 mg/dL (9.8-20.1); Bilirubin, Total 0.4 mg/dL (0.2-1.2); Calc. Creatinine Clearance 170 mL/min (70-130); Calcium 8.5 mg/dL (7.8-10.44); Carbon Dioxide 24 mmol/L (22-29); Chloride 101 mmol/L (98-107); Estimated GFR-MDRD Greater than 90; Globulin 2.7 g/dL (2.4-3.5); Protein, Total 5.4 g/dL (6.0-8.3)
--- NOTE | 2017-10-01 01:02 | HP ---
PRIMARY CARE PHYSICIAN: Mallory Jarrett M.D. REASON FOR ADMISSION: For swelling in the left upper extremity as well as chest, throat, and abdomi nal pain. HISTORY OF PRESENT ILLNESS: Ms. Forte is a pleasant 57-year-old female who was diagnosed with breast cancer in 2010. She was recently admitted to our facility for intractable pain. She had be en placed on a fentanyl patch as well as MS Jarvis and she also had a MediPort placed and was discha rged to home. She has the MediPort placed, she says on Wednesday night and she says later that vito ng she began noticing some swelling in her right upper extremity as well as some swelling in her rig ht breast. She also feels that the left side of her neck is swollen as well. She describes some th roat discomfort and trouble swallowing. She has even then evaluated in the emergency room a couple of days ago for similar complaints. Apparently, she was given the option to be admitted, but she re fused and was given some fluids and potassium replacement and left for home. However, her symptoms have gotten worse and she was seen in Dr. Young's office and he has directly admitted her for fur ther evaluation. The patient says she has been having some shortness of breath off and on, but denzel es any significant pain in her chest. She has had no nausea, no vomiting, but she has had some chil ls. REVIEW OF SYSTEMS: Constitutional: No fevers, no chills, no night sweats, no weight loss. HEENT: She denies any headache, no dizziness, no visual changes, no sore throat, no rhinorrhea, no neck pa in, no adenopathy. Pulmonary: No hemoptysis, no cough, no wheezing. Cardiovascular: She denies a ny chest pain. She has some dyspnea. No PND, no orthopnea. Gastrointestinal: She has constant ab dominal pain. No nausea, no vomiting, no change in bowels. Genitourinary: No urinary frequency, h ematuria, no hesitancy. Neurologic: No focal weakness, numbness, no seizures. Psychiatric: No sy mptoms of anxiety or depression. Skin and integument: No skin changes. No rash. PAST MEDICAL HISTORY: Significant for breast cancer, which is metastatic; coronary artery disease; degenerative joint disease and chronic back pain as well as chronic abdominal pain. PAST SURGICAL HISTORY: She has had a PTCA and stent in 2015, right mastectomy, cholecystectomy, and left eye enucleation. ALLERGIES: No known drug allergies. FAMILY HISTORY: Significant for hypertension. SOCIAL HISTORY: She is . She is a former smoker, denies any alcohol use, no drugs. She has 3 daughters and her surrogate decision maker is her daughter, Joelle. She would like to be a FULL CODE. MEDICATIONS: She is not sure of the names and doses of her medications. She believes they are the same as when she left the hospital last time and these include tramadol 50 mg q.i.d., Duragesic 50 m cg every 3 days, morphine immediate release 15 mg q.4 hours as needed, gabapentin 300 mg twice daily , carvedilol 6.25 mg twice a day and capecitabine 4 mg twice a day. PHYSICAL EXAMINATION: GENERAL: She is alert and oriented. She appears to have some distress due to pain. She rates it a t 10/10. VITAL SIGNS: Stable. HEENT: Her pupils are equal, round, and reactive. Extraocular muscles are intact. Her sclerae are anicteric. Throat: There is no erythema, no exudates. NECK: No adenopathy, no bruits. LUNGS: Clear. No wheezing, no rales. CARDIOVASCULAR: She has a normal S1, S2. I did not appreciate an S3 or S4. No murmurs, clicks, no rubs. ABDOMEN: Obese, it is soft, it is nontender, nondistended. Positive for bowel sounds. No rebound, no guarding. EXTREMITIES: She has got some swelling of the right upper extremity. There is no erythema, no warm th. The swelling extends into the right breast and then to the right side of her neck. However, th ere is minimal if any swelling on the left upper extremity. LABORATORY DATA: Lab results which were drawn on 09/28/2017 were reviewed and she had a slightly el evated white blood cell count 18.8 and her renal function, her creatinine was 0.45. ASSESSMENT AND PLAN: 1. This is a 57-year-old female who presents to the emergency room with swelling in the right upper extremity and history of metastatic breast cancer. The concern is for possible superior vena cava syndrome versus an upper extremity deep vein thrombosis. The case was discussed with Dr. Hector a s well as the on-call radiologist. We will get a CT scan of the thorax with contrast in order to ev aluate for possible superior vena cava syndrome. She will also need upper extremity venous Doppler in order to rule out a venous occlusion in the upper extremity. In the interim, we will give her a dose of Lovenox, 1 mg/kg dose until the results of her tests are noted. 2. Chronic pain, likely due to her metastatic breast cancer. The patient states that she believes hydrocodone works more effectively for her than the immediately release morphine. Therefore, we loy l change her to the hydrocodone in addition to the Duragesic patch and reassess her pain control in the a.m. Given that she has been on steroids as well per her report, we will be placing her on GI p rophylaxis as well.
[2017-10-01] MEDS: HYDROcodone/Acetaminophen 10/325 mg Tablet PO PRN ×5 (01:09→23:44)
[2017-10-01] MEDS: Sodium Chloride 0.9% 1,000 ML IV SCH ×5 (03:01→18:26)
[2017-10-01 04:40] LABS: #Eosinphils 0.1 thou/uL (0.0-0.7); #Monocytes 0.1 thou/uL (0.11-0.59); #Neutrophils 10.1 thou/uL (1.40-6.50); %Basophils 0.3 % (0.0-1.0); %Eosinophils 0.8 % (0.0-10.0); %Lymphocytes 8.4 % (21.0-51.0); %Monocytes 0.9 % (0.0-10.0); Hematocrit 26.3 % (36.0-47.0); Mean Platelet Volume 10.3 fL (7.4-10.4); Red Blood Cell (RBC) Count 3.37 mill/uL (4.20-5.40); White Blood Cell (WBC) Count 11.3 thou/uL (4.8-10.8)
[2017-10-01 04:54] LABS: Anion Gap 11 mmol/L (10-20); BUN (Urea Nitrogen) 7 mg/dL (9.8-20.1); Calc. Creatinine Clearance 186 mL/min (70-130); Calcium 8.3 mg/dL (7.8-10.44); Carbon Dioxide 27 mmol/L (22-29); Chloride 100 mmol/L (98-107); Estimated GFR-MDRD Greater than 90
[2017-10-01] MEDS ORDERED: fentaNYL 50 mcg/hour Patch TD SCH (07:00)
[2017-10-01] MEDS ORDERED: Potassium Chloride 20 MEQ TAB PO SCH (07:00)
[2017-10-01] MEDS: Ferrous Sulfate 325 MG TAB PO SCH ×2 (08:11→18:21)
[2017-10-01] MEDS: Docusate 100 MG CAP PO SCH ×2 (08:12→20:23)
[2017-10-01] MEDS: Gabapentin 300 MG CAP PO SCH ×2 (08:12→20:24)
[2017-10-01] MEDS: Enoxaparin Sodium 80 MG/0.8 ML SYRINGE SC SCH ×3 (08:12→20:25)
[2017-10-01] MEDS: Famotidine 20 MG TAB PO SCH ×2 (08:12→20:23)
[2017-10-01] MEDS: Carvedilol 6.25 MG TAB PO SCH ×2 (08:16→18:21)
[2017-10-01 09:45] LABS: Iron 17 ug/dL (50-170)
[2017-10-01] MEDS: Ondansetron HCl/PF 4 MG/2 ML Vial IVP PRN (10:18)
--- NOTE | 2017-10-01 10:30 | CT ---
PRELIMINARY REPORT/[facility]/EMERGENCY AFTER HOURS PROCEDURE: Addendum created by Scotty Crane MD on 10/01/2017 3:34 AM Central Time ([place] \T\ [place]) The findings were verbally communicated via telephone conference with Dr. Diaz at 3:15 AM CDT on 10/01/2017. Initial Report created on 10/01/2017 2:52 AM Central Time ([place] \[place]\ [place]) EXAM: CT Angiography Chest With Intravenous Contrast CLINICAL HISTORY: 57 years old, female; Signs and symptoms; Other: Swealling; Patient HX: Eval for possible pulmonary embolism; Right upper extremity swelling; Pt denies chest pain or SOB TECHNIQUE: Axial computed tomographic angiography images of the chest with intravenous contrast using pulmonary embolism protocol. Coronal reformatted images were created and reviewed. COMPARISON: No relevant prior studies available. FINDINGS: Pulmonary arteries: Anteromedial segmental branch filling defect in the left lower lobe. Probable fuentes bsegmental filling defect in the lateral segment of the left lower lobe peripherally. No additional discrete pulmonary embolus identified. Aorta: No acute findings. No thoracic aortic aneurysm. Lungs: Several pulmonary nodules in the left lung measuring up to 1.2 cm in the upper lobe. Right pa rahilar mass measuring up to roughly 6.5 x 5 cm in single transverse dimension extending from around the level of the azygos vein to the hilus with additional 4.5 cm medial infrahilar nodular componen t and ill-defined soft tissue density extending to the level of the vik. Narrowing of the right m ain bronchus and central bronchial branches with nonvisualization of the lower lobe superior segment al upper lobe anterior segmental branches. Mass effect on the SVC. Nonvisualization of the right sup erior and inferior pulmonary venous branches. Some ill-defined soft tissue density extending along t he superior mediastinal border. Consolidation of the left lower and middle lobes with volume loss. M ild interlobular septal thickening throughout the right lung. Punctate radiodensity inferiorly in th e right lung base near the diaphragm. Elevated right hemidiaphragm and mild mediastinal shift toward the right. Pleural space: Minimal left pleural effusion. Small right pleural effusion with possible loculated f luid anterolaterally. Heart: Unremarkable. Bones/joints: No acute fracture. No dislocation. Soft tissues: Edema in the right breast and lateral thoracic soft tissues. Right axillary surgical c lips. Lymph nodes: Unremarkable. No enlarged lymph nodes. Upper abdomen: 1.3 cm fluid density lesion in the hepatic dome. Few other subcentimeter low attenuat ion liver lesions too small to characterize. Wall thickening of a partially visualized bowel loop in the upper abdomen centrally. Tubes, lines and devices: Port-A-Cath. IMPRESSION: 1. Left lower lobe segmental and distal subsegmental pulmonary emboli. 2. Ill-defined right parahilar mass as above with small partially loculated right pleural effusion a nd several pulmonary nodules the left lung. Atelectasis involving the middle and right lower lobe wi th possible superimposed post obstructive pneumonitis. Nonspecific interlobular septal thickening on the right. 3. Wall thickening of a partially visualized bowel loop in the upper abdomen. Thank you for allowing us to participate in the care of your patient. Dictated and Authenticated by: Scotty Crane MD 10/01/2017 2:52 AM Central Time ([place] \T\ [place]) FINAL REPORT CT ANGIOGRAM THORAX WITH IV CONTRAST AND 3D RECONSTRUCTIONS: 10/01/2017 HISTORY: Chest pain and shortness of breath. Left lower extremity swelling. The patient has a history of deni ng cancer, as well as breast cancer. COMPARISON: 07/13/2017 IMPRESSION: 1. Pulmonary embolus involving a left lower lobe segmental and subsegmental pulmonary arteries. No additional filling defects are seen within the pulmonary arteries. 2. Multiple pulmonary nodules throughout the left lung, consistent with metastatic disease. A smal l left pleural effusion is present. 3. Right hilar and perihilar mass with mass also extending into the mediastinum, which has signific antly increased in size compared to the prior study. Measurements are described on the preliminary [facility] report. There is narrowing and attenuation of the right mainstem bronchus, as well as right l ower lobe bronchi. There is consolidation in the right lower lobe, which may be related to post obs tructive atelectasis or pneumonitis. The right lower lobe pulmonary veins are not visualized. Ther e is a small right pleural effusion and/or pleural thickening along the right lateral chest, extendi ng to the lung apex. There is generalized volume loss in the right hemithorax with elevation of the right hemidiaphragm, which represents an interval change from the study on 07/13/2017. 4. There is edema and skin thickening of each breast greater on the right. There is also a small n odule seen at the medial aspect of the right breast, measuring approximately 1 cm. Multiple surgica l clips are seen in the right axillary region. 5. There is a soft tissue mass seen posterior to the medial aspect body of the right scapula, measu ring 4.3 cm x 2.6 cm, with a very small nodule seen in this region on prior exam, previously measuri ng 1.9 cm x 1.1 cm. There is also a small nodule posterior to the T11 vertebral body, measuring 2.3 cm x 3 cm, with a very tiny nodule measuring 0.5 cm on the prior study. Findings are worrisome for metastatic lesions in the soft tissues. 6. No lytic or sclerotic osseous lesions are appreciated. 7. Hypodense lesion at the posterior aspect, right hepatic lobe, and a smaller lesion also seen in the right hepatic lobe, also seen on prior study, unchanged. 8. Suggestion of thickening of a loop of bowel within the upper abdomen. This is incompletely eval uated on this exam, but there was demonstration of mass-like involvement of a loop of bowel within t he upper abdomen on the CT abdomen on 09/20/2017. 9. All of the above findings are most consistent with interval worsening of metastatic disease when compared to the prior CTA of the chest on 07/13/2017, including subcutaneous nodules and pulmonary nodules, as well as the masses in the right hilar/perihilar region. Subcutaneous masses are also pr esent. 10. Findings are in agreement with the preliminary report by Na[facility]. POS: [facility]
--- NOTE | 2017-10-01 12:30 | PDOC.PN ---
- Subjective Encounter Start Date: 10/01/17 Encounter Start Time: 08:15 -: old records requested/rev Patient seen and examined. No new complaints. No overnight events - Objective Resuscitation Status: Resuscitation Status FULL:Full Resuscitation MAR Reviewed: Yes Vital Signs & Weight: Vital Signs (12 hours) Temp Pulse Resp BP BP Pulse Ox 10/01/17 11:48 99.1 F 122 H 18 85/52 L 93 L 10/01/17 08:16 98/65 10/01/17 08:00 98.8 F 125 H 18 10/01/17 07:28 98.8 F 125 H 18 9865 93 L Weight Weight 178 lb Result Diagrams: 10/01/17 03:37 10/01/17 03:37 Radiology Reviewed by me: Yes (CTA) Phys Exam - Physical Examination Constitutional: NAD HEENT: PERRLA, moist MMs, sclera anicteric Neck: no JVD, supple Respiratory: no wheezing, no rales, no rhonchi Cardiovascular: RRR, no significant murmur, no rub Gastrointestinal: soft, non-tender, no distention, positive bowel sounds Musculoskeletal: no edema, pulses present Neurological: non-focal, normal sensation, moves all 4 limbs Psychiatric: normal affect, A&O x 3 Skin: no rash, normal turgor Dx/Plan (1) Hypokalemia Code(s): E87.6 - HYPOKALEMIA Status: Acute (2) Hyponatremia Code(s): E87.1 - HYPO-OSMOLALITY AND HYPONATREMIA Status: Acute (3) Mass of hilum Code(s): R91.8 - OTHER NONSPECIFIC ABNORMAL FINDING OF LUNG FIELD Status: Acute (4) Pneumonia Code(s): J18.9 - PNEUMONIA, UNSPECIFIED ORGANISM Status: Acute (5) Pulmonary embolism Code(s): I26.99 - OTHER PULMONARY EMBOLISM WITHOUT ACUTE COR PULMONALE Status : Acute (6) Swelling of right upper extremity Code(s): M79.89 - OTHER SPECIFIED SOFT TISSUE DISORDERS Status: Acute (7) Cardiomyopathy Code(s): I42.9 - CARDIOMYOPATHY, UNSPECIFIED Status: Chronic Qualifiers: Comment: 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 (8) Chronic pain due to neoplasm Code(s): G89.3 - NEOPLASM RELATED PAIN (ACUTE) (CHRONIC) Status: Chronic (9) GERD (gastroesophageal reflux disease) Code(s): K21.9 - GASTRO-ESOPHAGEAL REFLUX DISEASE WITHOUT ESOPHAGITIS Status: Chronic Qualifiers: (10) HTN (hypertension) Code(s): I10 - ESSENTIAL (PRIMARY) HYPERTENSION Status: Chronic Qualifiers: (11) Metastatic breast carcinoma Code(s): C50.919 - MALIGNANT NEOPLASM OF UNSP SITE OF UNSPECIFIED FEMALE BREAST ; C79.9 - SECONDARY MALIGNANT NEOPLASM OF UNSPECIFIED SITE Status: Chronic (12) Microcytic anemia Code(s): D50.9 - IRON DEFICIENCY ANEMIA, UNSPECIFIED Status: Chronic (13) Obesity (BMI 30.0-34.9) Code(s): E66.9 - OBESITY, UNSPECIFIED Status: Chronic (14) Tobacco abuse Code(s): Z72.0 - TOBACCO USE Status: Chronic Comment: smoking cessation resources, Nicotine patch - Plan cont current plan of care, continue antibiotics * continue lovenox * start zosyn for post obstructive pneumonia * monitor cbc * consider blood transfusion * anemia work up * palliative care consult * medication reviewed as below * symptomatic treatment * consider elliquis on discharge. * replace potassium * increase IVF Review of Systems - Review of Systems ENT: negative: Ear Pain, Ear Discharge, Nose Pain, Nose Discharge, Nose Congestion, Mouth Pain, Mouth Swelling, Throat Pain, Throat Swelling, Other Respiratory: negative: Cough, Dry, Shortness of Breath, Hemoptysis, SOB with Excertion, Pleuritic Pain, Sputum, Wheezing Cardiovascular: negative: Chest Pain, Palpitations, Orthopnea, Paroxysmal Noc. Dyspnea, Edema, Light Headedness, Other Gastrointestinal: negative: Nausea, Vomiting, Abdominal Pain, Diarrhea, Constipation, Melena, Hematochezia, Other Genitourinary: negative: Dysuria, Frequency, Incontinence, Hematuria, Retention , Other Musculoskeletal: negative: Neck Pain, Shoulder Pain, Arm Pain, Back Pain, Hand Pain, Leg Pain, Foot Pain, Other - Medications/Allergies Allergies/Adverse Reactions: Allergies Allergy/AdvReac Type Severity Reaction Status Date / Time No Known Allergies Allergy Verified 08/18/17 23:54 Medications: Current Medications Hydrocodone Bitart/Acetaminophen ([place] 10/325) 1 tab PO Q4H PRN PRN Reason: Moderate Pain (4-6) Last Admin: 10/01/17 10:21 Dose: 1 tab Al Hydroxide/Mg Hydroxide (Maalox) 30 ml PO Q6H PRN PRN Reason: Heartburn or Indigestion Amoxicillin/Clavulanate Potassium (Augmentin) 875 mg PO Q12HR [facility] Carvedilol (Coreg) 6.25 mg PO BID-[facility] Last Admin: 10/01/17 08:16 Dose: Not Given Docusate Sodium (Colace) 100 mg PO BID [facility] Last Admin: 10/01/17 08:12 Dose: 100 mg Enoxaparin Sodium (Lovenox) 80 mg SC 0900,2100 [facility] Last Admin: 10/01/17 11:52 Dose: 80 mg Famotidine (Pepcid) 20 mg PO BID [facility] Last Admin: 10/01/17 08:12 Dose: 20 mg Fentanyl (Duragesic) 100 mcg TD Q3D [facility] Last Admin: 09/30/17 20:47 Dose: 100 mcg Ferrous Sulfate (Feosol) 325 mg PO BID-[facility] Last Admin: 10/01/17 08:11 Dose: 325 mg Gabapentin (Neurontin) 300 mg PO BID [facility] Last Admin: 10/01/17 08:12 Dose: 300 mg Sodium Chloride (Normal Saline 0.9%) 1,000 mls @ 125 mls/hr IV .Q8H [facility] (Capecitabine [ (Capecitabine] 4 Tab)) 4 tab PO BID [facility] Ondansetron HCl (Zofran Odt) 4 mg PO Q6H PRN PRN Reason: Nausea/Vomiting Ondansetron HCl (Zofran) 4 mg IVP Q6H PRN PRN Reason: Nausea/Vomiting Last Admin: 10/01/17 10:18 Dose: 4 mg
[2017-10-01] MEDS ORDERED: Sodium Chloride 0.9% 1,000 ML IV SCH (13:15)
[2017-10-01] MEDS ORDERED: Iopamidol 300 61% 30 ML VIAL ONE (13:36)
[2017-10-01] MEDS ORDERED: Lorazepam 2 MG/ML VIAL ONE (16:15)
--- NOTE | 2017-10-01 16:20 | RAD ---
FLUOROSCOPIC VASCULAR ACCESS PORT CHECK 10/01/17 HISTORY: Poorly functioning right subclavian Mediport. FINDINGS: Clean technique was used to attempt to inject a small amount of Isovue 300 contrast into the right s ubclavian Mediport. Initially, contrast was unable to be injected. With careful manipulation of the Hurtado needle, not exposing the access site, the needle tip was repo sitioned to the port, and contrast was injected into the patent catheter, demonstrating flow from th e catheter tip at the right atrium. The needle was left in place and the port was flushed with 10 mL heparinized saline. Patient tolerat ed the procedure well and was returned in unchanged condition. IMPRESSION: Initial malposition of the Hurtado needle in relation to the Mediport hub. The needle was repositioned , achieving good access to the Mediport catheter which is patent. POS: [facility]
[2017-10-01] MEDS ORDERED: Lorazepam 2 MG/ML VIAL SLOW IVP SCH (17:15)
[2017-10-01] MEDS: Piperacillin/Tazobactam 3.375 GM, Admixture Fee 1 EACH in Sodium Chloride 0.9% 100 ML IVPB SCH ×2 (18:24→23:38)
[2017-10-01] MEDS ORDERED: Amoxicillin/Potassium Clav 875 MG TAB PO SCH (21:00)
[2017-10-02] MEDS: Sodium Chloride 0.9% 1,000 ML IV SCH ×2 (04:12→21:38)
[2017-10-02] MEDS: HYDROcodone/Acetaminophen 10/325 mg Tablet PO PRN ×5 (04:13→23:37)
[2017-10-02 05:11] LABS: #Eosinphils 0.1 thou/uL (0.0-0.7); #Lymphocytes 0.8 thou/uL (1.20-3.40); #Monocytes 0.1 thou/uL (0.11-0.59); %Basophils 0.7 % (0.0-1.0); %Eosinophils 1.9 % (0.0-10.0); %Lymphocytes 13.7 % (21.0-51.0); %Monocytes 1.3 % (0.0-10.0); Hematocrit 22.9 % (36.0-47.0); Mean Platelet Volume 10.8 fL (7.4-10.4); Red Blood Cell (RBC) Count 2.89 mill/uL (4.20-5.40); White Blood Cell (WBC) Count 6.1 thou/uL (4.8-10.8)
[2017-10-02 05:28] LABS: ALT (SGPT) Less than 7 U/L (8-55); AST (SGOT) 9 U/L (5-34); Alkaline Phosphatase 55 U/L (40-150); Anion Gap 11 mmol/L (10-20); BUN (Urea Nitrogen) 10 mg/dL (9.8-20.1); Bilirubin, Total 0.3 mg/dL (0.2-1.2); Calc. Creatinine Clearance 157 mL/min (70-130); Calcium 7.9 mg/dL (7.8-10.44); Carbon Dioxide 26 mmol/L (22-29); Chloride 104 mmol/L (98-107); Estimated GFR-MDRD Greater than 90; Globulin 2.6 g/dL (2.4-3.5); Protein, Total 5.2 g/dL (6.0-8.3)
[2017-10-02] MEDS: Piperacillin/Tazobactam 3.375 GM, Admixture Fee 1 EACH in Sodium Chloride 0.9% 100 ML IVPB SCH ×4 (05:35→23:39)
[2017-10-02] MEDS: Docusate 100 MG CAP PO SCH ×2 (08:29→20:18)
[2017-10-02] MEDS: Enoxaparin Sodium 80 MG/0.8 ML SYRINGE SC SCH (08:29)
[2017-10-02] MEDS: Ferrous Sulfate 325 MG TAB PO SCH ×2 (08:29→18:18)
[2017-10-02] MEDS: Gabapentin 300 MG CAP PO SCH ×2 (08:29→20:18)
[2017-10-02] MEDS ORDERED: Cepastat Lozenges 1 LOZ PO PRN (09:23)
[2017-10-02] MEDS ORDERED: Chloraseptic Spray 180 ml Bottle PO PRN (10:19)
[2017-10-02] MEDS ORDERED: Lorazepam 1 MG TAB PO PRN (10:38)
--- NOTE | 2017-10-02 11:46 | PDOC.PN ---
- Subjective Encounter Start Date: 10/02/17 Encounter Start Time: 09:45 -: old records requested/rev Patient seen and examined. c/o sore throat. No overnight events - Objective Resuscitation Status: Resuscitation Status FULL:Full Resuscitation MAR Reviewed: Yes Vital Signs & Weight: Vital Signs (12 hours) Temp Pulse Resp BP Pulse Ox 10/02/17 08:00 96.9 F L 122 H 20 94 L 10/02/17 04:00 98.3 F 123 H 20 100/57 L 96 10/02/17 01:46 124 H 20 99 10/02/17 00:00 99.6 F 122 H 18 118/60 94 L Weight Weight 178 lb I&O: 10/01/17 10/02/17 10/03/17 06:59 06:59 05:59 Intake Total 5072 Output Total 300 Balance 4772 Result Diagrams: 10/02/17 04:50 10/02/17 04:50 Phys Exam - Physical Examination Constitutional: NAD HEENT: PERRLA, moist MMs, sclera anicteric Neck: no JVD, supple Respiratory: no wheezing, no rales, no rhonchi Cardiovascular: RRR, no significant murmur, no rub Gastrointestinal: soft, non-tender, no distention, positive bowel sounds Musculoskeletal: no edema, pulses present Neurological: non-focal, normal sensation Psychiatric: normal affect Skin: no rash, normal turgor Dx/Plan (1) Hypokalemia Code(s): E87.6 - HYPOKALEMIA Status: Resolved (2) Hyponatremia Code(s): E87.1 - HYPO-OSMOLALITY AND HYPONATREMIA Status: Resolved (3) Mass of hilum Code(s): R91.8 - OTHER NONSPECIFIC ABNORMAL FINDING OF LUNG FIELD Status: Acute (4) Pneumonia Code(s): J18.9 - PNEUMONIA, UNSPECIFIED ORGANISM Status: Acute (5) Pulmonary embolism Code(s): I26.99 - OTHER PULMONARY EMBOLISM WITHOUT ACUTE COR PULMONALE Status : Acute (6) Swelling of right upper extremity Code(s): M79.89 - OTHER SPECIFIED SOFT TISSUE DISORDERS Status: Acute (7) Cardiomyopathy Code(s): I42.9 - CARDIOMYOPATHY, UNSPECIFIED Status: Chronic Qualifiers: 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: 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 (8) Chronic pain due to neoplasm Code(s): G89.3 - NEOPLASM RELATED PAIN (ACUTE) (CHRONIC) Status: Chronic (9) GERD (gastroesophageal reflux disease) Code(s): K21.9 - GASTRO-ESOPHAGEAL REFLUX DISEASE WITHOUT ESOPHAGITIS Status: Chronic Qualifiers: (10) HTN (hypertension) Code(s): I10 - ESSENTIAL (PRIMARY) HYPERTENSION Status: Chronic Qualifiers: (11) Metastatic breast carcinoma Code(s): C50.919 - MALIGNANT NEOPLASM OF UNSP SITE OF UNSPECIFIED FEMALE BREAST ; C79.9 - SECONDARY MALIGNANT NEOPLASM OF UNSPECIFIED SITE Status: Chronic (12) Microcytic anemia Code(s): D50.9 - IRON DEFICIENCY ANEMIA, UNSPECIFIED Status: Chronic (13) Obesity (BMI 30.0-34.9) Code(s): E66.9 - OBESITY, UNSPECIFIED Status: Chronic (14) Tobacco abuse Code(s): Z72.0 - TOBACCO USE Status: Chronic Comment: smoking cessation resources, Nicotine patch (15) Mass of right upper extremity Code(s): R22.31 - LOCALIZED SWELLING, MASS AND LUMP, RIGHT UPPER LIMB Status: Acute - Plan cont current plan of care, PT/OT, social worker * MRI was not possible due to severe cloustrophobia * will transfuse 1 unit of PRBC * repeat labs tomorrow * oncology following * continue lovenox for PE * medication reviewed as below * symptomatic treatment. Review of Systems - Review of Systems Constitutional: negative: Fever, Chills, Sweats, Weakness, Malaise, Other ENT: Throat Pain. negative: Ear Pain, Ear Discharge, Nose Pain, Nose Discharge , Nose Congestion, Mouth Pain, Mouth Swelling, Throat Swelling, Other Respiratory: negative: Cough, Dry, Shortness of Breath, Hemoptysis, SOB with Excertion, Pleuritic Pain, Sputum, Wheezing Cardiovascular: negative: Chest Pain, Palpitations, Orthopnea, Paroxysmal Noc. Dyspnea, Edema, Light Headedness, Other Gastrointestinal: negative: Nausea, Vomiting, Abdominal Pain, Diarrhea, Constipation, Melena, Hematochezia, Other Genitourinary: negative: Dysuria, Frequency, Incontinence, Hematuria, Retention , Other Musculoskeletal: negative: Neck Pain, Shoulder Pain, Arm Pain, Back Pain, Hand Pain, Leg Pain, Foot Pain, Other Skin: negative: Rash, Lesions, Beto, Bruising, Other - Medications/Allergies Allergies/Adverse Reactions: Allergies Allergy/AdvReac Type Severity Reaction Status Date / Time No Known Allergies Allergy Verified 08/18/17 23:54 Medications: Current Medications Hydrocodone Bitart/Acetaminophen ([place] 10/325) 1 tab PO Q4H PRN PRN Reason: Moderate Pain (4-6) Last Admin: 10/02/17 08:29 Dose: 1 tab Al Hydroxide/Mg Hydroxide (Maalox) 30 ml PO Q6H PRN PRN Reason: Heartburn or Indigestion Albuterol/Ipratropium (Duoneb) 3 ml NEB Q4H PRN PRN Reason: SOB &/or Wheezing Last Admin: 10/02/17 01:46 Dose: 3 ml Apixaban (Eliquis) 10 mg PO BID [facility] Docusate Sodium (Colace) 100 mg PO BID [facility] Last Admin: 10/02/17 08:29 Dose: 100 mg Fentanyl (Duragesic) 100 mcg TD Q3D [facility] Last Admin: 09/30/17 20:47 Dose: 100 mcg Ferrous Sulfate (Feosol) 325 mg PO BID-[facility] Last Admin: 10/02/17 08:29 Dose: 325 mg Gabapentin (Neurontin) 300 mg PO BID [facility] Last Admin: 10/02/17 08:29 Dose: 300 mg Piperacillin Sod/Tazobactam Sod 3.375 gm/ Miscellaneous Medication 1 each/ Sodium Chloride 100 mls @ 200 mls/hr IVPB Q6HR [facility] Last Admin: 10/02/17 05:35 Dose: 100 mls Lorazepam (Ativan) 1 mg PO Q4H PRN PRN Reason: Anxiety Lorazepam (Ativan) 2 mg PO Q4H PRN PRN Reason: Anxiety unrelieved by 1mg dose (Capecitabine [ (Capecitabine] 4 Tab)) 4 tab PO BID [facility] Ondansetron HCl (Zofran Odt) 4 mg PO Q6H PRN PRN Reason: Nausea/Vomiting Ondansetron HCl (Zofran) 4 mg IVP Q6H PRN PRN Reason: Nausea/Vomiting Last Admin: 10/01/17 10:18 Dose: 4 mg Pantoprazole Sodium (Protonix) 40 mg PO DAILY [facility] Last Admin: 10/02/17 08:29 Dose: 40 mg Phenol (Chloraseptic [place] 180 Ml Bot) 0 ml PO BIDPRN PRN PRN Reason: Sore Throat Sodium Chloride (Flush - Normal Saline) 10 ml IVF Q12HR [facility] Sodium Chloride (Flush - Normal Saline) 10 ml IVF PRN PRN PRN Reason: Saline Flush Throat Lozenges (Cepastat Lozenges) 1 [place] PO Q4H PRN PRN Reason: SORE THROAT Last Admin: 10/02/17 10:32 Dose: 1 irwin
[2017-10-02] MEDS ORDERED: Bisacodyl 5 MG TAB PO PRN (19:44)
[2017-10-02] MEDS: guaiFENesin 200 MG TAB PO PRN (20:17)
[2017-10-02] MEDS: Apixaban 5 MG TAB PO SCH (20:27)
[2017-10-03] MEDS ORDERED: ISOVUE-370 76%-LOCM 1 ML ONE (02:08)
[2017-10-03] MEDS: HYDROcodone/Acetaminophen 10/325 mg Tablet PO PRN ×6 (03:17→23:53)
[2017-10-03 05:39] LABS: ALT (SGPT) Less than 7 U/L (8-55); AST (SGOT) 10 U/L (5-34); Alkaline Phosphatase 54 U/L (40-150); Anion Gap 13 mmol/L (10-20); BUN (Urea Nitrogen) 6 mg/dL (9.8-20.1); Bilirubin, Total 0.4 mg/dL (0.2-1.2); Calc. Creatinine Clearance 167 mL/min (70-130); Calcium 8.1 mg/dL (7.8-10.44); Carbon Dioxide 23 mmol/L (22-29); Chloride 105 mmol/L (98-107); Estimated GFR-MDRD Greater than 90; Globulin 2.6 g/dL (2.4-3.5); Protein, Total 5.2 g/dL (6.0-8.3)
[2017-10-03] MEDS: Piperacillin/Tazobactam 3.375 GM, Admixture Fee 1 EACH in Sodium Chloride 0.9% 100 ML IVPB SCH ×4 (05:42→23:45)
[2017-10-03 05:51] LABS: Band 3 % (5-11); Hematocrit 26.4 % (36.0-47.0); Hypochromia MODERATE=16-30 cells (100X) (0-5/hpf); Macrocytosis MODERATE=16-30 cells (100X) (0-5/hpf); Mean Platelet Volume 4.8 fL (7.4-10.4); Neutrophil 57 % (42-75); Nucleated RBC 1 % (0); Red Blood Cell (RBC) Count 3.28 mill/uL (4.20-5.40); White Blood Cell (WBC) Count 2.5 thou/uL (4.8-10.8)
[2017-10-03] MEDS: Ferrous Sulfate 325 MG TAB PO SCH ×2 (07:36→17:51)
[2017-10-03] MEDS: Docusate 100 MG CAP PO SCH ×2 (08:00→21:41)
--- NOTE | 2017-10-03 09:02 | PDOC.PN ---
- Subjective Encounter Start Date: 10/03/17 Encounter Start Time: 07:00 c/o right arm swelling, throat pain, Patient seen and examined. No overnight events - Objective Resuscitation Status: Resuscitation Status FULL:Full Resuscitation MAR Reviewed: Yes Vital Signs & Weight: Vital Signs (12 hours) Temp Pulse Resp BP Pulse Ox 10/03/17 07:52 96.1 F L 113 H 16 10/03/17 07:40 96.1 F L 113 H 16 109/63 99 10/03/17 04:50 99.0 F 111 H 20 110/57 L 96 10/03/17 04:11 98 Weight Weight 178 lb I&O: 10/02/17 10/03/17 10/04/17 07:59 06:59 06:59 Intake Total 859 Output Total Balance 859 Result Diagrams: 10/03/17 05:15 10/03/17 05:15 Phys Exam - Physical Examination Constitutional: NAD HEENT: PERRLA, moist MMs, sclera anicteric Neck: no JVD, supple, full ROM Respiratory: no wheezing, no rales, no rhonchi Cardiovascular: RRR, no significant murmur, no rub Gastrointestinal: soft, non-tender, no distention, positive bowel sounds Musculoskeletal: no edema, pulses present right upper extrimity swelling Neurological: non-focal, normal sensation Lymphatic: no nodes Psychiatric: normal affect, A&O x 3 Skin: no rash, normal turgor Dx/Plan (1) Hypokalemia Code(s): E87.6 - HYPOKALEMIA Status: Resolved (2) Hyponatremia Code(s): E87.1 - HYPO-OSMOLALITY AND HYPONATREMIA Status: Resolved (3) Mass of hilum Code(s): R91.8 - OTHER NONSPECIFIC ABNORMAL FINDING OF LUNG FIELD Status: Acute (4) Pneumonia Code(s): J18.9 - PNEUMONIA, UNSPECIFIED ORGANISM Status: Acute (5) Pulmonary embolism Code(s): I26.99 - OTHER PULMONARY EMBOLISM WITHOUT ACUTE COR PULMONALE Status : Acute (6) Swelling of right upper extremity Code(s): M79.89 - OTHER SPECIFIED SOFT TISSUE DISORDERS Status: Acute (7) Cardiomyopathy Code(s): I42.9 - CARDIOMYOPATHY, UNSPECIFIED Status: Chronic 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 (8) Chronic pain due to neoplasm Code(s): G89.3 - NEOPLASM RELATED PAIN (ACUTE) (CHRONIC) Status: Chronic (9) GERD (gastroesophageal reflux disease) Code(s): K21.9 - GASTRO-ESOPHAGEAL REFLUX DISEASE WITHOUT ESOPHAGITIS Status: Chronic Qualifiers: (10) HTN (hypertension) Code(s): I10 - ESSENTIAL (PRIMARY) HYPERTENSION Status: Chronic Qualifiers: (11) Metastatic breast carcinoma Code(s): C50.919 - MALIGNANT NEOPLASM OF UNSP SITE OF UNSPECIFIED FEMALE BREAST ; C79.9 - SECONDARY MALIGNANT NEOPLASM OF UNSPECIFIED SITE Status: Chronic (12) Microcytic anemia Code(s): D50.9 - IRON DEFICIENCY ANEMIA, UNSPECIFIED Status: Chronic (13) Obesity (BMI 30.0-34.9) Code(s): E66.9 - OBESITY, UNSPECIFIED Status: Chronic (14) Tobacco abuse Code(s): Z72.0 - TOBACCO USE Status: Chronic Comment: smoking cessation resources, Nicotine patch (15) Mass of right upper extremity Code(s): R22.31 - LOCALIZED SWELLING, MASS AND LUMP, RIGHT UPPER LIMB Status: Acute - Plan cont current plan of care, continue antibiotics, PT/OT * today will get CT upper extrimity and CT neck with contrast for further evaluation * continue elliquis * start PT * wean off oxygen as needed * medication reviewed as below * symptomatic treatment. * continue zosyn * US LE to rule out DVT Review of Systems - Review of Systems ENT: Throat Pain. negative: Ear Pain, Ear Discharge, Nose Pain, Nose Discharge , Nose Congestion, Mouth Pain, Mouth Swelling, Throat Swelling, Other Respiratory: negative: Cough, Dry, Shortness of Breath, Hemoptysis, SOB with Excertion, Pleuritic Pain, Sputum, Wheezing Cardiovascular: negative: Chest Pain, Palpitations, Orthopnea, Paroxysmal Noc. Dyspnea, Edema, Light Headedness, Other Gastrointestinal: negative: Nausea, Vomiting, Abdominal Pain, Diarrhea, Constipation, Melena, Hematochezia, Other Genitourinary: negative: Dysuria, Frequency, Incontinence, Hematuria, Retention , Other Musculoskeletal: Arm Pain. negative: Neck Pain, Shoulder Pain, Back Pain, Hand Pain, Leg Pain, Foot Pain, Other Skin: negative: Rash, Lesions, Beto, Bruising, Other - Medications/Allergies Allergies/Adverse Reactions: Allergies Allergy/AdvReac Type Severity Reaction Status Date / Time No Known Allergies Allergy Verified 08/18/17 23:54 Medications: Current Medications Hydrocodone Bitart/Acetaminophen ([place] 10/325) 1 tab PO Q4H PRN PRN Reason: Moderate Pain (4-6) Last Admin: 10/03/17 07:32 Dose: 1 tab Al Hydroxide/Mg Hydroxide (Maalox) 30 ml PO Q6H PRN PRN Reason: Heartburn or Indigestion Albuterol/Ipratropium (Duoneb) 3 ml NEB Q4H PRN PRN Reason: SOB &/or Wheezing Last Admin: 10/02/17 15:58 Dose: 3 ml Apixaban (Eliquis) 10 mg PO BID [facility] Last Admin: 10/02/17 20:27 Dose: 10 mg Bisacodyl (Dulcolax) 10 mg PO DAILYPRN PRN PRN Reason: CONSTIPATION Last Admin: 10/02/17 20:18 Dose: 10 mg Docusate Sodium (Colace) 100 mg PO BID [facility] Last Admin: 10/02/17 20:18 Dose: 100 mg Fentanyl (Duragesic) 100 mcg TD Q3D [facility] Last Admin: 09/30/17 20:47 Dose: 100 mcg Ferrous Sulfate (Feosol) 325 mg PO BID-[facility] Last Admin: 10/03/17 07:36 Dose: 325 mg Gabapentin (Neurontin) 300 mg PO BID [facility] Last Admin: 10/02/17 20:18 Dose: 300 mg Guaifenesin (Organ-I Nr) 600 mg PO Q6H PRN PRN Reason: .CONGESTION Last Admin: 10/02/17 20:17 Dose: 600 mg Piperacillin Sod/Tazobactam Sod 3.375 gm/ Miscellaneous Medication 1 each/ Sodium Chloride 100 mls @ 200 mls/hr IVPB Q6HR [facility] Last Admin: 10/03/17 05:42 Dose: 100 mls Sodium Chloride (Normal Saline 0.9%) 1,000 mls @ 50 mls/hr IV .Q20H [facility] Last Admin: 10/02/17 21:38 Dose: 1,000 mls Lorazepam (Ativan) 1 mg PO Q4H PRN PRN Reason: Anxiety Lorazepam (Ativan) 2 mg PO Q4H PRN PRN Reason: Anxiety unrelieved by 1mg dose (Capecitabine [ (Capecitabine] 4 Tab)) 4 tab PO BID [facility] Ondansetron HCl (Zofran Odt) 4 mg PO Q6H PRN PRN Reason: Nausea/Vomiting Ondansetron HCl (Zofran) 4 mg IVP Q6H PRN PRN Reason: Nausea/Vomiting Last Admin: 10/01/17 10:18 Dose: 4 mg Pantoprazole Sodium (Protonix) 40 mg PO DAILY [facility] Last Admin: 10/02/17 08:29 Dose: 40 mg Phenol (Chloraseptic [place] 180 Ml Bot) 0 ml PO BIDPRN PRN PRN Reason: Sore Throat Last Admin: 10/02/17 13:11 Dose: 1 spr Sodium Chloride (Flush - Normal Saline) 10 ml IVF Q12HR [facility] Last Admin: 10/03/17 07:38 Dose: Not Given Sodium Chloride (Flush - Normal Saline) 10 ml IVF PRN PRN PRN Reason: Saline Flush Throat Lozenges (Cepastat Lozenges) 1 irwin PO Q4H PRN PRN Reason: SORE THROAT Last Admin: 10/02/17 10:32 Dose: 1 irwin
[2017-10-03] MEDS: Apixaban 5 MG TAB PO SCH ×2 (11:35→21:36)
[2017-10-03] MEDS: Gabapentin 300 MG CAP PO SCH ×2 (11:36→21:36)
--- NOTE | 2017-10-03 11:52 | ULT ---
BILATERAL LOWER EXTREMITY VENOUS DOPPLER WITH SPECTRAL ANALYSIS AND COLOR FLOW EVALUATION: Date: 10/03/17 HISTORY: Pulmonary embolus. TECHNIQUE: Buckner scale, color flow, Doppler evaluation, and spectral analysis of the bilateral lower extremity v enous structures is performed with 2D imaging. The bilateral lower extremity common femoral, superfi cial femoral, popliteal, posterior tibial, proximal greater saphenous, and profunda femoral veins ar e imaged. FINDINGS: There is normal lumen compressibility, flow, and augmentation of the visualized deep venous structur es of the bilateral lower extremities. IMPRESSION: No evidence of a deep venous thrombosis involving the visualized deep venous structures of bilateral lower extremities. POS: TITO
[2017-10-03] MEDS: Lorazepam 1 MG TAB PO PRN (17:48)
[2017-10-03] MEDS: Sodium Chloride 0.9% 1,000 ML IV SCH (18:33)
[2017-10-03] MEDS: fentaNYL 100 mcg/hour Patch TD SCH (19:35)
--- NOTE | 2017-10-03 20:04 | CT ---
CT NECK SOFT TISSUES: Indication: Pain. Comparison: Reference made to CT thorax, 10-01-17. FINDINGS: Re-demonstration of partially imaged multifocal necrotic masses of the chest including the mediastin um/intrathoracic cavity as well as the subcutaneous soft tissues posteriorly at the base of neck and posterior aspect of the upper thorax. There is a prominent degree of retropharyngeal edema. Soft tissue prominence of the oropharynx is pr esent. Nonspecific thickening of the aryepiglottic fold is present. No obvious mass at the level of the glottis. There is prominent attenuation of the proximal right mainstem bronchus by above describ ed multifocal heterogeneous soft tissue mass. There are abnormally enlarged lymph nodes of the adnex um which are hypodense compatible with necrotic adenopathy indicative of metaphyses. Diffuse soft ti ssue edema is present. Abnormal pleural based densities are seen at each upper chest, right greater then left. There is a right chest port. There is a mild, nonspecific, generalized heterogeneity of t he osseous structures. This could relate to demineralization or possibly marrow infiltration. Incidental note of multifocal hypoattenuation adjacent dentition indicating odontogenic disease. There is a prosthetic left globe incidentally noted. IMPRESSION: 1. Conglomerate necrotic adenopathy/mass like prominence of the partially imaged upper chest as was depicted on 10-01-17 indicative of malignancy with associated necrotic metastatic adenopathy of the n hermelindo. 2. Retropharyngeal edema. This does descend toward the above described necrotic masses of the medias tinum. 3. Prominent soft tissues of the oropharynx. POS: NWK
--- NOTE | 2017-10-03 21:05 | CT ---
CT UPPER EXTREMITY WITH CONTRAST: History: Upper extremity swelling. Comparison: None. FINDINGS: There is a large peripheral enhancing mass with central necrosis of the deltoid muscle measuring 5.7 x 4.6 cm. A large mass is present in the mediastinum causing mass effect in the superior vena cava. There is also mass extending along the right mediastinal border. There is mass effect of the right brachiocephalic vein. There is severe edema of the right upper extremity and right breast. There is extensive pleural metastatic disease along the right posterior pleural space. There is narrowing of bronchus intermedius and right main stem bronchus. There is a nodule within the medial right breast measuring just under 1.0 cm, axial image 61. The subclavian vein is patent. There are axial surgical clips. There is a soft tissue nodule just caudal to the infraspinatus and teres minor muscle measuring appr oximately 4.8 x 3.1 cm, increased in size from 4.3 x 2.6 cm. IMPRESSION: 1. Severe right upper extremity and right soft tissue edema, likely sequellae of mass effect along t he right brachiocephalic vein from the large mediastinal mass. There is extensive centrally necrotic mass throughout the right mediastinum extending to the pleural space. This nearly envelopes the sup erior vena cava. 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 2. Soft tissue deposits within the right deltoid muscle and superficial soft tissues adjacent to the teres minor muscle on the right. The soft tissue deposit superficial to the teres minor may have in creased in size from just two days prior indicating progression of disease, although scan angle may be dissimilar. POS: TONG
[2017-10-03] MEDS: guaiFENesin 200 MG TAB PO PRN (21:37)
[2017-10-04] MEDS: Sodium Chloride 0.9% 1,000 ML IV SCH ×4 (00:15→23:21)
[2017-10-04] MEDS: Vancomycin HCl 1 GM in Premix Bag 1 BAG IVPB SCH ×2 (01:05→13:14)
[2017-10-04] MEDS: HYDROcodone/Acetaminophen 10/325 mg Tablet PO PRN ×5 (05:01→23:20)
[2017-10-04] MEDS: Piperacillin/Tazobactam 3.375 GM, Admixture Fee 1 EACH in Sodium Chloride 0.9% 100 ML IVPB SCH ×4 (05:02→23:15)
[2017-10-04] MEDS ORDERED: Famotidine/PF 20 mg/2ml Vial SLOW IVP SCH (05:30)
[2017-10-04] MEDS ORDERED: diphenhydrAMINE 50 MG/ML VIAL IVP SCH (05:30)
[2017-10-04] MEDS ORDERED: methylPREDNISolone Sod Succ/PF 125 MG/2 ML VIAL IVP SCH (05:30)
[2017-10-04 05:46] LABS: #Eosinphils 0.1 thou/uL (0.0-0.7); #Lymphocytes 0.7 thou/uL (1.20-3.40); #Monocytes 0.2 thou/uL (0.11-0.59); #Neutrophils 0.8 thou/uL (1.40-6.50); %Eosinophils 3.6 % (0.0-10.0); %Lymphocytes 41.1 % (21.0-51.0); %Monocytes 11.6 % (0.0-10.0); Mean Platelet Volume 5.6 fL (7.4-10.4); Red Blood Cell (RBC) Count 3.09 mill/uL (4.20-5.40); White Blood Cell (WBC) Count 1.8 thou/uL (4.8-10.8)
[2017-10-04 05:50] LABS: Anion Gap 9 mmol/L (10-20); BUN (Urea Nitrogen) 4 mg/dL (9.8-20.1); Calc. Creatinine Clearance 186 mL/min (70-130); Calcium 8.1 mg/dL (7.8-10.44); Carbon Dioxide 26 mmol/L (22-29); Chloride 104 mmol/L (98-107); Estimated GFR-MDRD Greater than 90
[2017-10-04] MEDS: Ferrous Sulfate 325 MG TAB PO SCH ×2 (08:47→18:35)
[2017-10-04] MEDS: Gabapentin 300 MG CAP PO SCH ×2 (08:47→19:30)
[2017-10-04] MEDS: Docusate 100 MG CAP PO SCH ×2 (08:48→19:32)
[2017-10-04] MEDS: Apixaban 5 MG TAB PO SCH ×2 (08:48→19:30)
[2017-10-04] MEDS: Ondansetron HCl/PF 4 MG/2 ML Vial IVP PRN (09:24)
[2017-10-04] MEDS: Morphine PF 1 MG/ML SYR IV PRN (11:31)
--- NOTE | 2017-10-04 13:08 | PDOC.PN ---
- Subjective Encounter Start Date: 10/04/17 Encounter Start Time: 07:00 c/o right arm pain, throat pain - Objective Resuscitation Status: Resuscitation Status FULL:Full Resuscitation MAR Reviewed: Yes Vital Signs & Weight: Vital Signs (12 hours) Temp Pulse Resp BP Pulse Ox 10/04/17 08:50 99 F 130 H 20 100 10/04/17 05:16 93 L 10/04/17 05:15 98.2 F 126 H 18 118/56 L 100 Weight Weight 178 lb I&O: 10/03/17 10/04/17 10/05/17 06:59 06:59 06:59 Intake Total 859 980 Balance 859 980 Result Diagrams: 10/04/17 05:10 10/04/17 05:10 Phys Exam - Physical Examination Constitutional: NAD HEENT: PERRLA, moist MMs, sclera anicteric Neck: no JVD, supple Respiratory: no wheezing, no rales, no rhonchi Cardiovascular: RRR, no significant murmur, no rub Gastrointestinal: soft, non-tender, no distention, positive bowel sounds Musculoskeletal: no edema, pulses present Neurological: non-focal, normal sensation Psychiatric: normal affect Skin: no rash, normal turgor Dx/Plan (1) Hypokalemia Code(s): E87.6 - HYPOKALEMIA Status: Resolved (2) Hyponatremia Code(s): E87.1 - HYPO-OSMOLALITY AND HYPONATREMIA Status: Resolved (3) Mass of hilum Code(s): R91.8 - OTHER NONSPECIFIC ABNORMAL FINDING OF LUNG FIELD Status: Acute (4) Pneumonia Code(s): J18.9 - PNEUMONIA, UNSPECIFIED ORGANISM Status: Acute (5) Pulmonary embolism Code(s): I26.99 - OTHER PULMONARY EMBOLISM WITHOUT ACUTE COR PULMONALE Status : Acute (6) Swelling of right upper extremity Code(s): M79.89 - OTHER SPECIFIED SOFT TISSUE DISORDERS Status: Acute (7) Cardiomyopathy Code(s): I42.9 - CARDIOMYOPATHY, UNSPECIFIED Status: Chronic 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 (8) Chronic pain due to neoplasm Code(s): G89.3 - NEOPLASM RELATED PAIN (ACUTE) (CHRONIC) Status: Chronic (9) GERD (gastroesophageal reflux disease) Code(s): K21.9 - GASTRO-ESOPHAGEAL REFLUX DISEASE WITHOUT ESOPHAGITIS Status: Chronic Qualifiers: (10) HTN (hypertension) Code(s): I10 - ESSENTIAL (PRIMARY) HYPERTENSION Status: Chronic Qualifiers: (11) Metastatic breast carcinoma Code(s): C50.919 - MALIGNANT NEOPLASM OF UNSP SITE OF UNSPECIFIED FEMALE BREAST ; C79.9 - SECONDARY MALIGNANT NEOPLASM OF UNSPECIFIED SITE Status: Chronic (12) Microcytic anemia Code(s): D50.9 - IRON DEFICIENCY ANEMIA, UNSPECIFIED Status: Chronic (13) Obesity (BMI 30.0-34.9) Code(s): E66.9 - OBESITY, UNSPECIFIED Status: Chronic (14) Tobacco abuse Code(s): Z72.0 - TOBACCO USE Status: Chronic Comment: smoking cessation resources, Nicotine patch (15) Mass of right upper extremity Code(s): R22.31 - LOCALIZED SWELLING, MASS AND LUMP, RIGHT UPPER LIMB Status: Acute - Plan cont current plan of care, plan discussed w/ family * prognosis is very poor * option of hospice discussed * medication reviewed as below * symptomatic treatment. * discussed with oncology Review of Systems - Review of Systems ENT: Throat Pain. negative: Ear Pain, Ear Discharge, Nose Pain, Nose Discharge , Nose Congestion, Mouth Pain, Mouth Swelling, Throat Swelling, Other Respiratory: negative: Cough, Dry, Shortness of Breath, Hemoptysis, SOB with Excertion, Pleuritic Pain, Sputum, Wheezing Cardiovascular: negative: Chest Pain, Palpitations, Orthopnea, Paroxysmal Noc. Dyspnea, Edema, Light Headedness, Other Gastrointestinal: negative: Nausea, Vomiting, Abdominal Pain, Diarrhea, Constipation, Melena, Hematochezia, Other Genitourinary: negative: Dysuria, Frequency, Incontinence, Hematuria, Retention , Other Musculoskeletal: Arm Pain. negative: Neck Pain, Shoulder Pain, Back Pain, Hand Pain, Leg Pain, Foot Pain, Other Skin: negative: Rash, Lesions, Beto, Bruising, Other - Medications/Allergies Allergies/Adverse Reactions: Allergies Allergy/AdvReac Type Severity Reaction Status Date / Time No Known Allergies Allergy Verified 08/18/17 23:54 Medications: Current Medications Hydrocodone Bitart/Acetaminophen ([place] 10/325) 1 tab PO Q4H PRN PRN Reason: Moderate Pain (4-6) Last Admin: 10/04/17 09:47 Dose: 1 tab Al Hydroxide/Mg Hydroxide (Maalox) 30 ml PO Q6H PRN PRN Reason: Heartburn or Indigestion Albuterol/Ipratropium (Duoneb) 3 ml NEB Q4H PRN PRN Reason: SOB &/or Wheezing Last Admin: 10/03/17 11:22 Dose: 3 ml Apixaban (Eliquis) 10 mg PO BID [facility] Last Admin: 10/04/17 08:48 Dose: 10 mg Bisacodyl (Dulcolax) 10 mg PO DAILYPRN PRN PRN Reason: CONSTIPATION Last Admin: 10/02/17 20:18 Dose: 10 mg Docusate Sodium (Colace) 100 mg PO BID [facility] Last Admin: 10/04/17 08:48 Dose: Not Given Fentanyl (Duragesic) 100 mcg TD Q3D [facility] Last Admin: 10/03/17 19:35 Dose: 100 mcg Ferrous Sulfate (Feosol) 325 mg PO BID[facility] Last Admin: 10/04/17 08:47 Dose: 325 mg Gabapentin (Neurontin) 300 mg PO BID [facility] Last Admin: 10/04/17 08:47 Dose: 300 mg Guaifenesin (Organ-I Nr) 600 mg PO Q6H PRN PRN Reason: .CONGESTION Last Admin: 10/03/17 21:37 Dose: 600 mg Piperacillin Sod/Tazobactam Sod 3.375 gm/ Miscellaneous Medication 1 each/ Sodium Chloride 100 mls @ 200 mls/hr IVPB Q6HR [facility] Last Admin: 10/04/17 11:35 Dose: 100 mls Vancomycin HCl 1 gm/ Device 200 mls @ 200 mls/hr IVPB 0100,1300 [facility] Last Admin: 10/04/17 13:14 Dose: 200 mls Sodium Chloride (Normal Saline 0.9%) 1,000 mls @ 100 mls/hr IV .Q10H [facility] Last Admin: 10/04/17 11:38 Dose: 1,000 mls Lorazepam (Ativan) 1 mg PO Q4H PRN PRN Reason: Anxiety Lorazepam (Ativan) 2 mg PO Q4H PRN PRN Reason: Anxiety unrelieved by 1mg dose Last Admin: 10/03/17 17:48 Dose: 2 mg Morphine Sulfate (Duramorph) 2 mg IV Q4H PRN PRN Reason: Pain Last Admin: 10/04/17 11:31 Dose: 2 mg (Capecitabine [ (Capecitabine] 4 Tab)) 4 tab PO BID [facility] Ondansetron HCl (Zofran Odt) 4 mg PO Q6H PRN PRN Reason: Nausea/Vomiting Ondansetron HCl (Zofran) 4 mg IVP Q6H PRN PRN Reason: Nausea/Vomiting Last Admin: 10/04/17 09:24 Dose: 4 mg Pantoprazole Sodium (Protonix) 40 mg PO DAILY [facility] Last Admin: 10/04/17 08:47 Dose: 40 mg Phenol (Chloraseptic [place] 180 Ml Bot) 0 ml PO BIDPRN PRN PRN Reason: Sore Throat Last Admin: 10/02/17 13:11 Dose: 1 spr Sodium Chloride (Flush - Normal Saline) 10 ml IVF Q12HR [facility] Last Admin: 10/04/17 08:50 Dose: 10 ml Sodium Chloride (Flush - Normal Saline) 10 ml IVF PRN PRN PRN Reason: Saline Flush Last Admin: 10/04/17 05:46 Dose: 10 ml Throat Lozenges (Cepastat Lozenges) 1 irwin PO Q4H PRN PRN Reason: SORE THROAT Last Admin: 10/02/17 10:32 Dose: 1 irwin
[2017-10-05] MEDS: Vancomycin HCl 1 GM in Premix Bag 1 BAG IVPB SCH ×2 (01:10→13:18)
[2017-10-05] MEDS: HYDROcodone/Acetaminophen 10/325 mg Tablet PO PRN ×5 (04:15→21:54)
[2017-10-05] MEDS: Sodium Chloride 0.9% 1,000 ML IV SCH ×2 (05:36→13:24)
[2017-10-05] MEDS: Piperacillin/Tazobactam 3.375 GM, Admixture Fee 1 EACH in Sodium Chloride 0.9% 100 ML IVPB SCH ×4 (05:37→23:54)
[2017-10-05] MEDS: Apixaban 5 MG TAB PO SCH ×2 (09:08→21:24)
[2017-10-05] MEDS: Ferrous Sulfate 325 MG TAB PO SCH ×2 (09:08→17:53)
[2017-10-05] MEDS: Gabapentin 300 MG CAP PO SCH ×2 (09:08→21:24)
[2017-10-05] MEDS: Docusate 100 MG CAP PO SCH ×2 (09:18→21:24)
[2017-10-05 13:28] LABS: Vancomycin, Trough 11.5 ug/mL
--- NOTE | 2017-10-05 14:54 | PDOC.PN ---
- Subjective Encounter Start Date: 10/05/17 Encounter Start Time: 14:51 Subjective: feels about the same.no new complaints -: persistant right arm and throat pain - Objective Resuscitation Status: Resuscitation Status FULL:Full Resuscitation MAR Reviewed: Yes Vital Signs & Weight: Vital Signs (12 hours) Temp Pulse Resp BP Pulse Ox 10/05/17 08:50 98.2 F 130 H 20 117/61 92 L Weight Weight 178 lb I&O: 10/04/17 10/05/17 10/06/17 06:59 06:59 06:59 Intake Total 859 4590 100 Balance 859 4590 100 Result Diagrams: 10/04/17 05:10 10/04/17 05:10 Additional Labs: Microbiology 10/03/17 18:26 Stool - Loose Stool Occult Blood (SIVA) - Final 10/04/17 00:40 Venous blood - Right Hand Blood Culture - Preliminary Specimen has been received and culture in progress. No Growth to date. 10/04/17 00:40 Port - Right external iliac vein Blood Culture - Preliminary Specimen has been received and culture in progress. No Growth to date. Laboratory Tests 09/30/17 10/01/17 10/02/17 22:34 03:37 04:50 WBC 14.7 H 11.3 H 6.1 Hgb 8.4 L 10/03/17 10/04/17 05:15 05:10 WBC 2.5 L 1.8 L Hgb 7.8 L 7.3 L Radiology Reviewed by me: Yes Phys Exam - Physical Examination Constitutional: NAD HEENT: PERRLA, moist MMs, sclera anicteric, oral pharynx no lesions Neck: no nodes, no JVD, supple, full ROM Respiratory: no wheezing, no rales, no rhonchi, clear to auscultation bilateral Cardiovascular: RRR, no significant murmur Gastrointestinal: soft, non-tender, no distention, positive bowel sounds Musculoskeletal: no edema, pulses present Neurological: non-focal, normal sensation, moves all 4 limbs Psychiatric: normal affect, A&O x 3 Skin: no rash Dx/Plan (1) Pulmonary embolism Code(s): I26.99 - OTHER PULMONARY EMBOLISM WITHOUT ACUTE COR PULMONALE Status : Acute (2) Superior vena cava compression syndrome Code(s): I87.1 - COMPRESSION OF VEIN Status: Acute (3) 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 Status: Acute (4) Mass of hilum Code(s): R91.8 - OTHER NONSPECIFIC ABNORMAL FINDING OF LUNG FIELD Status: Acute (5) Swelling of right upper extremity Code(s): M79.89 - OTHER SPECIFIED SOFT TISSUE DISORDERS Status: Acute (6) Cardiomyopathy Code(s): I42.9 - CARDIOMYOPATHY, UNSPECIFIED Status: Chronic 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: 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 (7) Chronic pain due to neoplasm Code(s): G89.3 - NEOPLASM RELATED PAIN (ACUTE) (CHRONIC) Status: Chronic (8) GERD (gastroesophageal reflux disease) Code(s): K21.9 - GASTRO-ESOPHAGEAL REFLUX DISEASE WITHOUT ESOPHAGITIS Status: Chronic Qualifiers: (9) Metastatic breast carcinoma Code(s): C50.919 - MALIGNANT NEOPLASM OF UNSP SITE OF UNSPECIFIED FEMALE BREAST ; C79.9 - SECONDARY MALIGNANT NEOPLASM OF UNSPECIFIED SITE Status: Chronic (10) Pneumonia Code(s): J18.9 - PNEUMONIA, UNSPECIFIED ORGANISM Status: Acute (11) Neutropenia Code(s): D70.9 - NEUTROPENIA, UNSPECIFIED Status: Acute Qualifiers: Neutropenia type: secondary to cancer chemotherapy Qualified Code(s): D70.1 - Agranulocytosis secondary to cancer chemotherapy; T45.1X5A - Adverse effect of antineoplastic and immunosuppressive drugs, initial encounter; T45.1X5A - Adverse effect of antineoplastic and immunosuppressive drugs, initial encounter (12) Anemia Code(s): D64.9 - ANEMIA, UNSPECIFIED Status: Acute Qualifiers: Anemia type: unspecified type Qualified Code(s): D64.9 - Anemia, unspecified - Plan plan discussed w/ family, PT/OT, social worker health services, out of bed/ambulate, DVT proph w/SCDs cont Eliquis PO BID for PE.cont zosyn for possible post-obstructive PNA -: cont supportive care. -: poor prognosis w extensive mets.Oncology following.Fa,mark meeting today -: PCT following.pt hospice appropriate.will follow -: am labs.neutropenic precautions * . Review of Systems - Review of Systems Constitutional: Weakness, Malaise. negative: Fever, Chills, Sweats, Other Respiratory: negative: Cough, Dry, Shortness of Breath, Hemoptysis, SOB with Excertion, Pleuritic Pain, Sputum, Wheezing Cardiovascular: negative: Chest Pain, Palpitations, Orthopnea, Paroxysmal Noc. Dyspnea, Edema, Light Headedness, Other Gastrointestinal: negative: Nausea, Vomiting, Abdominal Pain, Diarrhea, Constipation, Melena, Hematochezia, Other Genitourinary: negative: Dysuria, Frequency, Incontinence, Hematuria, Retention , Other Musculoskeletal: negative: Neck Pain, Shoulder Pain, Arm Pain, Back Pain, Hand Pain, Leg Pain, Foot Pain, Other Neurological: negative: Weakness, Numbness, Incoordination, Change in Speech, Confusion, Seizures, Other - Medications/Allergies Allergies/Adverse Reactions: Allergies Allergy/AdvReac Type Severity Reaction Status Date / Time No Known Allergies Allergy Verified 08/18/17 23:54 Medications: Current Medications Hydrocodone Bitart/Acetaminophen ([place] 10/325) 1 tab PO Q4H PRN PRN Reason: Moderate Pain (4-6) Last Admin: 10/05/17 13:22 Dose: 1 tab Al Hydroxide/Mg Hydroxide (Maalox) 30 ml PO Q6H PRN PRN Reason: Heartburn or Indigestion Albuterol/Ipratropium (Duoneb) 3 ml NEB Q4H PRN PRN Reason: SOB &/or Wheezing Last Admin: 10/03/17 11:22 Dose: 3 ml Apixaban (Eliquis) 10 mg PO BID [facility] Last Admin: 10/05/17 09:08 Dose: 10 mg Bisacodyl (Dulcolax) 10 mg PO DAILYPRN PRN PRN Reason: CONSTIPATION Last Admin: 10/02/17 20:18 Dose: 10 mg Docusate Sodium (Colace) 100 mg PO BID [facility] Last Admin: 10/05/17 09:18 Dose: Not Given Fentanyl (Duragesic) 100 mcg TD Q3D [facility] Last Admin: 10/03/17 19:35 Dose: 100 mcg Ferrous Sulfate (Feosol) 325 mg PO BID[facility] Last Admin: 10/05/17 09:08 Dose: 325 mg Gabapentin (Neurontin) 300 mg PO BID [facility] Last Admin: 10/05/17 09:08 Dose: 300 mg Guaifenesin (Organ-I Nr) 600 mg PO Q6H PRN PRN Reason: .CONGESTION Last Admin: 10/03/17 21:37 Dose: 600 mg Piperacillin Sod/Tazobactam Sod 3.375 gm/ Miscellaneous Medication 1 each/ Sodium Chloride 100 mls @ 200 mls/hr IVPB Q6HR [facility] Last Admin: 10/05/17 13:18 Dose: 100 mls Vancomycin HCl 1 gm/ Device 200 mls @ 200 mls/hr IVPB 0100,1300 ERINN Last Admin: 10/05/17 13:18 Dose: 200 mls Sodium Chloride (Normal Saline 0.9%) 1,000 mls @ 100 mls/hr IV .Q10H [facility] Last Admin: 10/05/17 13:24 Dose: 1,000 mls Lorazepam (Ativan) 1 mg PO Q4H PRN PRN Reason: Anxiety Lorazepam (Ativan) 2 mg PO Q4H PRN PRN Reason: Anxiety unrelieved by 1mg dose Last Admin: 10/03/17 17:48 Dose: 2 mg Morphine Sulfate (Duramorph) 2 mg IV Q4H PRN PRN Reason: Pain Last Admin: 10/04/17 11:31 Dose: 2 mg (Capecitabine [ (Capecitabine] 4 Tab)) 4 tab PO BID [facility] Ondansetron HCl (Zofran Odt) 4 mg PO Q6H PRN PRN Reason: Nausea/Vomiting Ondansetron HCl (Zofran) 4 mg IVP Q6H PRN PRN Reason: Nausea/Vomiting Last Admin: 10/04/17 09:24 Dose: 4 mg Pantoprazole Sodium (Protonix) 40 mg PO DAILY [facility] Last Admin: 10/05/17 09:08 Dose: 40 mg Phenol (Chloraseptic [place] 180 Ml Bot) 0 ml PO BIDPRN PRN PRN Reason: Sore Throat Last Admin: 10/02/17 13:11 Dose: 1 spr Sodium Chloride (Flush - Normal Saline) 10 ml IVF Q12HR [facility] Last Admin: 10/05/17 09:13 Dose: 10 ml Sodium Chloride (Flush - Normal Saline) 10 ml IVF PRN PRN PRN Reason: Saline Flush Last Admin: 10/04/17 05:46 Dose: 10 ml Throat Lozenges (Cepastat Lozenges) 1 irwin PO Q4H PRN PRN Reason: SORE THROAT Last Admin: 10/02/17 10:32 Dose: 1 irwin
[2017-10-05] MEDS: Lorazepam 1 MG TAB PO PRN (23:09)
[2017-10-06] MEDS: Vancomycin HCl 1 GM in Premix Bag 1 BAG IVPB SCH (01:07)
[2017-10-06] MEDS: Sodium Chloride 0.9% 1,000 ML IV SCH ×2 (03:20→21:50)
[2017-10-06] MEDS: HYDROcodone/Acetaminophen 10/325 mg Tablet PO PRN ×5 (03:55→20:51)
[2017-10-06] MEDS: Piperacillin/Tazobactam 3.375 GM, Admixture Fee 1 EACH in Sodium Chloride 0.9% 100 ML IVPB SCH ×3 (05:33→18:15)
[2017-10-06 05:43] LABS: Hematocrit 19.5 % (36.0-47.0); Mean Platelet Volume 10.2 fL (7.4-10.4); Red Blood Cell (RBC) Count 2.32 mill/uL (4.20-5.40); White Blood Cell (WBC) Count 2.6 thou/uL (4.8-10.8)
[2017-10-06 06:43] LABS: Anisocytosis MODERATE=16-30 cells (100X) (0-5/hpf); Band 12 % (5-11); Hypochromia SLIGHT = 6-15 cells (100X) (0-5/hpf); Neutrophil 34 % (42-75)
[2017-10-06] MEDS: Docusate 100 MG CAP PO SCH ×2 (08:07→20:45)
[2017-10-06] MEDS: Ferrous Sulfate 325 MG TAB PO SCH ×2 (08:07→16:56)
[2017-10-06] MEDS: Apixaban 5 MG TAB PO SCH (08:07)
[2017-10-06] MEDS: Gabapentin 300 MG CAP PO SCH ×2 (08:07→20:52)
[2017-10-06] MEDS ORDERED: Lidocaine Viscous Sol 2% 15 ml UD Cup SSP PRN (09:10)
[2017-10-06] MEDS ORDERED: Lidocaine Viscous Sol 2% 15 ml UD Cup SSP SCH (09:15)
--- NOTE | 2017-10-06 12:16 | PDOC.PN ---
- Subjective Encounter Start Date: 10/06/17 Encounter Start Time: 12:14 Subjective: feels weak. -: nursing reports black tarry stools.no vomiting - Objective Resuscitation Status: Resuscitation Status FULL:Full Resuscitation MAR Reviewed: Yes Vital Signs & Weight: Vital Signs (12 hours) Temp Pulse Pulse Resp BP BP BP 10/06/17 11:37 98.6 F 125 H 20 125/58 L 10/06/17 08:18 98.3 F 135 H 135 H 20 100/53 L 10/06/17 07:07 98.6 F 140 H 20 117/53 L 10/06/17 03:59 98.3 F 139 H 16 121/57 L Pulse Ox 10/06/17 11:37 96 10/06/17 08:18 94 L 10/06/17 07:07 93 L 10/06/17 03:59 98 Weight Weight 178 lb I&O: 10/05/17 10/06/17 10/07/17 06:59 06:59 06:59 Intake Total 4590 3925 350 Output Total 850 Balance 4590 3075 350 Result Diagrams: 10/06/17 04:00 10/04/17 05:10 Additional Labs: Microbiology 10/03/17 18:26 Stool - Loose Stool Occult Blood (SIVA) - Final 10/04/17 00:40 Venous blood - Right Hand Blood Culture - Preliminary Specimen has been received and culture in progress. No Growth to date. 10/04/17 00:40 Port - Right external iliac vein Blood Culture - Preliminary Specimen has been received and culture in progress. No Growth to date. Phys Exam - Physical Examination Constitutional: NAD sleepy ,weak and tired looking HEENT: PERRLA, moist MMs, sclera anicteric, oral pharynx no lesions Neck: no nodes, no JVD, supple, full ROM Respiratory: no wheezing, no rales, no rhonchi, clear to auscultation bilateral Cardiovascular: RRR, no significant murmur Gastrointestinal: soft, non-tender, no distention, positive bowel sounds Musculoskeletal: no edema, pulses present Neurological: non-focal, normal sensation, moves all 4 limbs Psychiatric: normal affect Skin: no rash Dx/Plan (1) Acute blood loss anemia Code(s): D62 - ACUTE POSTHEMORRHAGIC ANEMIA Status: Acute Comment: ? 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 (8) Chronic pain due to neoplasm Code(s): G89.3 - NEOPLASM RELATED PAIN (ACUTE) (CHRONIC) Status: Chronic (9) GERD (gastroesophageal reflux disease) Code(s): K21.9 - GASTRO-ESOPHAGEAL REFLUX DISEASE WITHOUT ESOPHAGITIS Status: Chronic Qualifiers: (10) Metastatic breast carcinoma Code(s): C50.919 - MALIGNANT NEOPLASM OF UNSP SITE OF UNSPECIFIED FEMALE BREAST ; C79.9 - SECONDARY MALIGNANT NEOPLASM OF UNSPECIFIED SITE Status: Chronic (11) Pneumonia Code(s): J18.9 - PNEUMONIA, UNSPECIFIED ORGANISM Status: Acute (12) Neutropenia Code(s): D70.9 - NEUTROPENIA, UNSPECIFIED Status: Acute Qualifiers: Neutropenia type: secondary to cancer chemotherapy Qualified Code(s): D70.1 - Agranulocytosis secondary to cancer chemotherapy; T45.1X5A - Adverse effect of antineoplastic and immunosuppressive drugs, initial encounter; T45.1X5A - Adverse effect of antineoplastic and immunosuppressive drugs, initial encounter - Plan difficult situation.pt on eliquis for PE & now seems to have GI bleed. -: will hold eliquis for now.[facility] -: if pt persues aggressive measures,will consult GI .add PPi for now -: very poor prognosis.clinically worse today. -: cont supportive measures * . Review of Systems - Review of Systems Constitutional: Weakness, Malaise. negative: Fever, Chills, Sweats, Other Cardiovascular: Chest Pain Gastrointestinal: negative: Nausea, Vomiting, Abdominal Pain, Diarrhea, Constipation, Hematochezia, Other Genitourinary: negative: Dysuria, Frequency, Incontinence, Hematuria, Retention , Other Musculoskeletal: Arm Pain, Back Pain. negative: Neck Pain, Shoulder Pain, Hand Pain, Leg Pain, Foot Pain, Other Neurological: negative: Weakness, Numbness, Incoordination, Change in Speech, Confusion, Seizures, Other - Medications/Allergies Allergies/Adverse Reactions: Allergies Allergy/AdvReac Type Severity Reaction Status Date / Time No Known Allergies Allergy Verified 08/18/17 23:54 Medications: Current Medications Hydrocodone Bitart/Acetaminophen ([place] 10/325) 1 tab PO Q4H PRN PRN Reason: Moderate Pain (4-6) Last Admin: 10/06/17 08:13 Dose: 1 tab Al Hydroxide/Mg Hydroxide (Maalox) 30 ml PO Q6H PRN PRN Reason: Heartburn or Indigestion Albuterol/Ipratropium (Duoneb) 3 ml NEB Q4H PRN PRN Reason: SOB &/or Wheezing Last Admin: 10/03/17 11:22 Dose: 3 ml Apixaban (Eliquis) 10 mg PO BID [facility] Last Admin: 10/06/17 08:07 Dose: 10 mg Bisacodyl (Dulcolax) 10 mg PO DAILYPRN PRN PRN Reason: CONSTIPATION Last Admin: 10/02/17 20:18 Dose: 10 mg Docusate Sodium (Colace) 100 mg PO BID [facility] Last Admin: 10/06/17 08:07 Dose: Not Given Fentanyl (Duragesic) 100 mcg TD Q3D [facility] Last Admin: 10/03/17 19:35 Dose: 100 mcg Ferrous Sulfate (Feosol) 325 mg PO BID-[facility] Last Admin: 10/06/17 08:07 Dose: 325 mg Gabapentin (Neurontin) 300 mg PO BID [facility] Last Admin: 10/06/17 08:07 Dose: 300 mg Guaifenesin (Organ-I Nr) 600 mg PO Q6H PRN PRN Reason: .CONGESTION Last Admin: 10/03/17 21:37 Dose: 600 mg Piperacillin Sod/Tazobactam Sod 3.375 gm/ Miscellaneous Medication 1 each/ Sodium Chloride 100 mls @ 200 mls/hr IVPB Q6HR [facility] Last Admin: 10/06/17 12:12 Dose: 100 mls Sodium Chloride (Normal Saline 0.9%) 1,000 mls @ 100 mls/hr IV .Q10H [facility] Last Admin: 10/06/17 03:20 Dose: 1,000 mls Vancomycin HCl 1.5 gm/ Sodium (Chloride) 300 mls @ 200 mls/hr IVPB 0100,1300 [facility] Lidocaine HCl (Xylocaine 2% Viscous) 15 ml SSP QIDPRN PRN PRN Reason: Sore mouth Last Admin: 10/06/17 10:32 Dose: 15 ml Lorazepam (Ativan) 1 mg PO Q4H PRN PRN Reason: Anxiety Lorazepam (Ativan) 2 mg PO Q4H PRN PRN Reason: Anxiety unrelieved by 1mg dose Last Admin: 10/05/17 23:09 Dose: 2 mg Miscellaneous Medication (Pharmacy To Dose) 0 each IVPB ASDIR [facility] Morphine Sulfate (Duramorph) 2 mg IV Q4H PRN PRN Reason: Pain Last Admin: 10/04/17 11:31 Dose: 2 mg (Capecitabine [ (Capecitabine] 4 Tab)) 4 tab PO BID [facility] Ondansetron HCl (Zofran Odt) 4 mg PO Q6H PRN PRN Reason: Nausea/Vomiting Ondansetron HCl (Zofran) 4 mg IVP Q6H PRN PRN Reason: Nausea/Vomiting Last Admin: 10/04/17 09:24 Dose: 4 mg Pantoprazole Sodium (Protonix) 40 mg PO DAILY [facility] Last Admin: 10/06/17 08:07 Dose: 40 mg Phenol (Chloraseptic [place] 180 Ml Bot) 0 ml PO BIDPRN PRN PRN Reason: Sore Throat Last Admin: 10/02/17 13:11 Dose: 1 spr Sodium Chloride (Flush - Normal Saline) 10 ml IVF Q12HR [facility]IN[facility] Last Admin: 10/06/17 08:20 Dose: 10 ml Sodium Chloride (Flush - Normal Saline) 10 ml IVF PRN PRN PRN Reason: Saline Flush Last Admin: 10/04/17 05:46 Dose: 10 ml Throat Lozenges (Cepastat Lozenges) 1 irwin PO Q4H PRN PRN Reason: SORE THROAT Last Admin: 10/02/17 10:32 Dose: 1 irwin
[2017-10-06] MEDS: Vancomycin HCl 1.5 GM in Sodium Chloride 0.9% 250 ML 300 ML IVPB SCH (12:55)
[2017-10-06 13:25] LABS: Hematocrit 23.6 % (36.0-47.0)
[2017-10-06] MEDS: fentaNYL 100 mcg/hour Patch TD SCH (20:35)
[2017-10-06] MEDS: Lorazepam 1 MG TAB PO PRN (21:47)
[2017-10-07] MEDS: Piperacillin/Tazobactam 3.375 GM, Admixture Fee 1 EACH in Sodium Chloride 0.9% 100 ML IVPB SCH ×4 (00:23→19:17)
[2017-10-07] MEDS: Vancomycin HCl 1.5 GM in Sodium Chloride 0.9% 250 ML 300 ML IVPB SCH ×2 (02:54→16:22)
[2017-10-07] MEDS: HYDROcodone/Acetaminophen 10/325 mg Tablet PO PRN ×4 (03:41→21:13)
--- NOTE | 2017-10-07 08:32 | CT ---
PRELIMINARY REPORT/[facility]/EMERGENCY AFTER-HOURS PROCEDURE: EXAM: CT Head Without Intravenous Contrast CLINICAL HISTORY: 57 years old, female; Signs and symptoms; Altered mental status/memory loss; Confusion or disorienta tion; Patient HX: New onset of ams/confusion TECHNIQUE: Axial computed tomography images of the head/brain without intravenous contrast. COMPARISON: No relevant prior studies available. FINDINGS: Brain: Normal. Ventricles: Normal. Bones/joints: Normal. No acute fracture. Soft tissues: Mild right periorbital and right facial soft tissue swelling/edema. Vasculature: Atherosclerotic vascular calcifications. Sinuses: Ethmoid, bilateral maxillary, and sphenoid sinus disease. Mastoid air cells: Fluid within the right mastoid air cells, which can be seen in mastitis. Orbits: Left globe prosthesis. IMPRESSION: 1. No acute intracranial abnormality. 2. Mild right periorbital and right facial soft tissue swelling/edema. 3. Incidental/non-acute findings are described above. Thank you for allowing us to participate in the care of your patient. Dictated and Authenticated by: Maxx Lowery MD 10/07/2017 3:08 AM Central Time ([place] \T\ [place]) FINAL REPORT NONCONTRAST HEAD CT: Date: 10/07/17 HISTORY: Altered mental status. COMPARISON: None. TECHNIQUE: Noncontrast head CT is performed from skull base to skull vertex. FINDINGS/IMPRESSION: This report is in agreement with the preliminary report by Naren. There is nonspecific right periorbi sabrina and facial soft tissue swelling. No intracranial post-traumatic sequelae. Mucosal disease of the right mastoid air cell and paranasal sinuses noted. 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 POS: [facility]
--- NOTE | 2017-10-07 08:34 | CT ---
PRELIMINARY REPORT/[facility]/EMERGENCY AFTER-HOURS PROCEDURE: EXAM: CT Maxillofacial Without Intravenous Contrast CLINICAL HISTORY: 57 years old, female; Signs and symptoms; Exophthalmos (bulging eyes); Exophthalmos not specified; R ight; Patient HX: Bulging of right eyes; AMS TECHNIQUE: Axial computed tomography images of the face without intravenous contrast. Coronal and sagittal reformatted images were created and reviewed. COMPARISON: No relevant prior studies available. FINDINGS: Bones/joints: No acute fracture. Soft tissues: Mild right periorbital soft tissue swelling. Orbits: Left globe prosthesis. Sinuses: Diffuse paranasal sinus disease. Auditory system: Small amount of cerumen material within the visualized right external auditory severino l. IMPRESSION: 1. No acute fracture. 2. Mild right periorbital soft tissue swelling. 3. Incidental/non-acute findings are described above. Thank you for allowing us to participate in the care of your patient. Dictated and Authenticated by: Maxx Lowery MD 10/07/2017 3:12 AM Central Time ([place] \T\ [place]) FINAL REPORT MAXILLOFACIAL CT WITHOUT CONTRAST: Date: 10/07/17 HISTORY: Right eye is bulging. COMPARISON: None. TECHNIQUE: Noncontrast face CT is performed in the axial plane. Reformatted images are submitted for interpreta tion. FINDINGS/IMPRESSION: This report is in agreement with the preliminary report by Naren. There is no acute fracture. There i s paranasal sinus mucosal thickening, as well as partial opacification of the right mastoid air cell s. There is right periorbital soft tissue swelling with a small component of a right-sided exophthal mos. Ophthalmologic consultation is recommended. Lack of contrast limits evaluation for acute inflam matory change. Nevertheless, no evidence of intraconal or extraconal fat stranding. Periodontal dise ase and periapical abscesses are noted, predominantly at the level of the maxilla. POS: [facility]
[2017-10-07] MEDS: Gabapentin 300 MG CAP PO SCH ×2 (08:50→21:11)
[2017-10-07] MEDS: Ferrous Sulfate 325 MG TAB PO SCH ×2 (08:50→16:47)
[2017-10-07] MEDS: Docusate 100 MG CAP PO SCH ×2 (08:50→21:07)
[2017-10-07] MEDS: Sodium Chloride 0.9% 1,000 ML IV SCH ×3 (08:52→18:28)
[2017-10-07 09:33] LABS: White Blood Cell (WBC) Count 2.3 thou/uL (4.8-10.8)
[2017-10-07 09:34] LABS: Hematocrit 22.5 % (36.0-47.0); Mean Platelet Volume 9.4 fL (7.4-10.4); Red Blood Cell (RBC) Count 2.58 mill/uL (4.20-5.40)
[2017-10-07 10:05] LABS: Anisocytosis MODERATE=16-30 cells (100X) (0-5/hpf); Band 20 % (5-11); Hypochromia MODERATE=16-30 cells (100X) (0-5/hpf); Polychromasia MARKED = >4 cells (100X) (0-2/hpf); Reactive Lymphocytes 1 % (0-10)
[2017-10-07 10:06] LABS: Neutrophil 23 % (42-75)
[2017-10-07 10:20] LABS: Carbon Dioxide 27 mmol/L (22-29); Chloride 107 mmol/L (98-107)
[2017-10-07 10:21] LABS: Anion Gap 9 mmol/L (10-20); BUN (Urea Nitrogen) 5 mg/dL (9.8-20.1); Calc. Creatinine Clearance 125 mL/min (70-130); Calcium 8.1 mg/dL (7.8-10.44); Estimated GFR-MDRD Greater than 90
[2017-10-07] MEDS: Morphine PF 1 MG/ML SYR IV PRN (10:52)
[2017-10-07] MEDS ORDERED: Potassium Chloride 40 MEQ, Admixture Fee 1 EACH in Sodium Chloride 0.9% 250 ML 250 ML IVPB SCH (11:00)
--- NOTE | 2017-10-07 13:09 | PDOC.PN ---
- Subjective Encounter Start Date: 10/07/17 Encounter Start Time: 13:07 Subjective: pt had been somnolent later night but more awake this am -: discussed w one of daughters at length.prognosis described - Objective Resuscitation Status: Resuscitation Status FULL:Full Resuscitation Vital Signs & Weight: Vital Signs (12 hours) Temp Pulse Resp BP BP Pulse Ox 10/07/17 12:00 97.8 F 130 H 20 136/61 94 L 10/07/17 08:40 98.8 F 137 H 20 93 L 10/07/17 08:00 98.8 F 137 H 20 136/65 93 L 10/07/17 04:00 99.2 F 131 H 16 109/59 L 92 L 10/07/17 01:40 98.5 F 138 H 20 131/64 95 Weight Weight 178 lb I&O: 10/06/17 10/07/17 10/08/17 06:59 06:59 06:59 Intake Total 3925 4400 Output Total 850 Balance 3075 4400 Result Diagrams: 10/07/17 09:07 10/07/17 09:03 Additional Labs: Microbiology 10/03/17 18:26 Stool - Loose Stool Occult Blood (SIVA) - Final 10/04/17 00:40 Venous blood - Right Hand Blood Culture - Preliminary NO GROWTH AT 48 HOURS 10/04/17 00:40 Port - Right external iliac vein Blood Culture - Preliminary NO GROWTH AT 48 HOURS Radiology Reviewed by me: Yes (Brain CT-no acute changes) Phys Exam - Physical Examination Constitutional: NAD easy to wake up HEENT: PERRLA, moist MMs, sclera anicteric, oral pharynx no lesions R fabrizio-orbital swelling Neck: no nodes, no JVD, supple, full ROM Respiratory: no wheezing, no rales, no rhonchi decreased at bases Cardiovascular: RRR, no significant murmur Gastrointestinal: soft, non-tender, no distention, positive bowel sounds Musculoskeletal: no edema, pulses present Neurological: moves all 4 limbs Psychiatric: normal affect Skin: no rash Dx/Plan (1) Acute blood loss anemia Code(s): D62 - ACUTE POSTHEMORRHAGIC ANEMIA Status: Acute Comment: ? GI bleed.s/p 2 units PRBC yesterday. 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 (8) Chronic pain due to neoplasm Code(s): G89.3 - NEOPLASM RELATED PAIN (ACUTE) (CHRONIC) Status: Chronic (9) GERD (gastroesophageal reflux disease) Code(s): K21.9 - GASTRO-ESOPHAGEAL REFLUX DISEASE WITHOUT ESOPHAGITIS Status: Chronic Qualifiers: (10) Metastatic breast carcinoma Code(s): C50.919 - MALIGNANT NEOPLASM OF UNSP SITE OF UNSPECIFIED FEMALE BREAST ; C79.9 - SECONDARY MALIGNANT NEOPLASM OF UNSPECIFIED SITE Status: Chronic (11) Pneumonia Code(s): J18.9 - PNEUMONIA, UNSPECIFIED ORGANISM Status: Acute (12) Neutropenia Code(s): D70.9 - NEUTROPENIA, UNSPECIFIED Status: Acute Qualifiers: Neutropenia type: secondary to cancer chemotherapy Qualified Code(s): D70.1 - Agranulocytosis secondary to cancer chemotherapy; T45.1X5A - Adverse effect of antineoplastic and immunosuppressive drugs, initial encounter; T45.1X5A - Adverse effect of antineoplastic and immunosuppressive drugs, initial encounter (13) Hypokalemia Code(s): E87.6 - HYPOKALEMIA Status: Resolved - Plan 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 -: transfuse to keep Hb >7. -: replace and recheck lytes. -: remains full code for now. * . Review of Systems - Review of Systems Other: can not be reliably obtained.pt somnolent - Medications/Allergies Allergies/Adverse Reactions: Allergies Allergy/AdvReac Type Severity Reaction Status Date / Time No Known Allergies Allergy Verified 08/18/17 23:54 Medications: Current Medications Hydrocodone Bitart/Acetaminophen ([place] 10/325) 1 tab PO Q4H PRN PRN Reason: Moderate Pain (4-6) Last Admin: 10/07/17 08:56 Dose: 1 tab Al Hydroxide/Mg Hydroxide (Maalox) 30 ml PO Q6H PRN PRN Reason: Heartburn or Indigestion Albuterol/Ipratropium (Duoneb) 3 ml NEB Q4H PRN PRN Reason: SOB &/or Wheezing Last Admin: 10/03/17 11:22 Dose: 3 ml Apixaban (Eliquis) 10 mg PO BID [facility] Last Admin: 10/06/17 08:07 Dose: 10 mg Bisacodyl (Dulcolax) 10 mg PO DAILYPRN PRN PRN Reason: CONSTIPATION Last Admin: 10/02/17 20:18 Dose: 10 mg Docusate Sodium (Colace) 100 mg PO BID [facility] Last Admin: 10/07/17 08:50 Dose: Not Given Fentanyl (Duragesic) 100 mcg TD Q3D [facility] Last Admin: 10/06/17 20:35 Dose: 100 mcg Ferrous Sulfate (Feosol) 325 mg PO BID-WM [facility] Last Admin: 10/07/17 08:50 Dose: 325 mg Gabapentin (Neurontin) 300 mg PO BID [facility] Last Admin: 10/07/17 08:50 Dose: 300 mg Guaifenesin (Organ-I Nr) 600 mg PO Q6H PRN PRN Reason: .CONGESTION Last Admin: 10/03/17 21:37 Dose: 600 mg Piperacillin Sod/Tazobactam Sod 3.375 gm/ Miscellaneous Medication 1 each/ Sodium Chloride 100 mls @ 200 mls/hr IVPB Q6HR [facility] Last Admin: 10/07/17 12:29 Dose: 100 mls Sodium Chloride (Normal Saline 0.9%) 1,000 mls @ 100 mls/hr IV .Q10H [facility] Last Admin: 10/07/17 08:52 Dose: 1,000 mls Vancomycin HCl 1.5 gm/ Sodium (Chloride) 300 mls @ 200 mls/hr IVPB 0100,1300 [facility] Last Admin: 10/07/17 02:54 Dose: 300 mls Potassium Chloride 40 meq/Miscellaneous Medication 1 each/ Sodium Chloride 270 mls @ 67.5 mls/hr IVPB Q4H [facility] Stop: 10/07/17 18:59 Last Admin: 10/07/17 11:41 Dose: 270 mls Lidocaine HCl (Xylocaine 2% Viscous) 15 ml SSP QIDPRN PRN PRN Reason: Sore mouth Last Admin: 10/06/17 10:32 Dose: 15 ml Lorazepam (Ativan) 1 mg PO Q4H PRN PRN Reason: Anxiety Lorazepam (Ativan) 2 mg PO Q4H PRN PRN Reason: Anxiety unrelieved by 1mg dose Last Admin: 10/06/17 21:47 Dose: 2 mg Miscellaneous Medication (Pharmacy To Dose) 0 each IVPB ASDIR [facility] Morphine Sulfate (Duramorph) 2 mg IV Q4H PRN PRN Reason: Pain Last Admin: 10/07/17 10:52 Dose: 2 mg (Capecitabine [ (Capecitabine] 4 Tab)) 4 tab PO BID [facility] Ondansetron HCl (Zofran Odt) 4 mg PO Q6H PRN PRN Reason: Nausea/Vomiting Ondansetron HCl (Zofran) 4 mg IVP Q6H PRN PRN Reason: Nausea/Vomiting Last Admin: 10/04/17 09:24 Dose: 4 mg Pantoprazole Sodium (Protonix) 40 mg PO BID [facility] Last Admin: 10/07/17 08:50 Dose: 40 mg Phenol (Chloraseptic [place] 180 Ml Bot) 0 ml PO BIDPRN PRN PRN Reason: Sore Throat Last Admin: 10/02/17 13:11 Dose: 1 spr Sodium Chloride (Flush - Normal Saline) 10 ml IVF Q12HR [facility] Last Admin: 10/07/17 08:52 Dose: Not Given Sodium Chloride (Flush - Normal Saline) 10 ml IVF PRN PRN PRN Reason: Saline Flush Last Admin: 10/04/17 05:46 Dose: 10 ml Throat Lozenges (Cepastat Lozenges) 1 irwin PO Q4H PRN PRN Reason: SORE THROAT Last Admin: 10/02/17 10:32 Dose: 1 irwin
[2017-10-07] MEDS ORDERED: Potassium Chloride 20 MEQ TAB PO SCH (14:30)
[2017-10-07 19:44] VITALS: BP 133/64
[2017-10-08] MEDS: Piperacillin/Tazobactam 3.375 GM, Admixture Fee 1 EACH in Sodium Chloride 0.9% 100 ML IVPB SCH ×2 (00:05→06:00)
[2017-10-08 00:29] LABS: Vancomycin, Trough 28.4 ug/mL
[2017-10-08] MEDS: Sodium Chloride 0.9% 1,000 ML IV SCH (05:35)
[2017-10-08 09:16] VITALS: TEMP 99.1
[2017-10-08] MEDS: Docusate 100 MG CAP PO SCH (10:35)
[2017-10-08] MEDS: Ferrous Sulfate 325 MG TAB PO SCH (10:35)
[2017-10-08] MEDS: Gabapentin 300 MG CAP PO SCH (10:35)
[2017-10-08] MEDS: HYDROcodone/Acetaminophen 10/325 mg Tablet PO PRN (10:38)
--- NOTE | 2017-10-08 12:29 | PDOC.PN ---
- Subjective Encounter Start Date: 10/08/17 Encounter Start Time: 12:27 Subjective: no new issues/complaints. - Objective Resuscitation Status: Resuscitation Status FULL:Full Resuscitation MAR Reviewed: Yes Vital Signs & Weight: Vital Signs (12 hours) Temp Pulse Resp Pulse Ox 10/08/17 08:00 99.1 F 127 H 20 96 Weight Weight 178 lb I&O: 10/07/17 10/08/17 10/09/17 06:59 06:59 06:59 Intake Total 4400 2100 Balance 4400 2100 Result Diagrams: 10/07/17 09:07 10/07/17 09:03 Phys Exam - Physical Examination Constitutional: NAD HEENT: PERRLA, moist MMs, sclera anicteric, oral pharynx no lesions Neck: no nodes, no JVD, supple, full ROM Respiratory: no wheezing, no rales, no rhonchi, clear to auscultation bilateral Cardiovascular: RRR, no significant murmur Gastrointestinal: soft, non-tender, no distention, positive bowel sounds Musculoskeletal: pulses present, edema present Neurological: non-focal, normal sensation, moves all 4 limbs Psychiatric: normal affect, A&O x 3 Dx/Plan (1) Acute blood loss anemia Code(s): D62 - ACUTE POSTHEMORRHAGIC ANEMIA Status: Acute Comment: ? GI bleed.s/p 2 units PRBC yesterday. 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 (8) Chronic pain due to neoplasm Code(s): G89.3 - NEOPLASM RELATED PAIN (ACUTE) (CHRONIC) Status: Chronic (9) GERD (gastroesophageal reflux disease) Code(s): K21.9 - GASTRO-ESOPHAGEAL REFLUX DISEASE WITHOUT ESOPHAGITIS Status: Chronic Qualifiers: (10) Metastatic breast carcinoma Code(s): C50.919 - MALIGNANT NEOPLASM OF UNSP SITE OF UNSPECIFIED FEMALE BREAST ; C79.9 - SECONDARY MALIGNANT NEOPLASM OF UNSPECIFIED SITE Status: Chronic (11) Pneumonia Code(s): J18.9 - PNEUMONIA, UNSPECIFIED ORGANISM Status: Acute (12) Neutropenia Code(s): D70.9 - NEUTROPENIA, UNSPECIFIED Status: Acute Qualifiers: Neutropenia type: secondary to cancer chemotherapy Qualified Code(s): D70.1 - Agranulocytosis secondary to cancer chemotherapy; T45.1X5A - Adverse effect of antineoplastic and immunosuppressive drugs, initial encounter; T45.1X5A - Adverse effect of antineoplastic and immunosuppressive drugs, initial encounter (13) Hypokalemia Code(s): E87.6 - HYPOKALEMIA Status: Resolved - Plan Stable for Dc today.Home w hospice. -: see DC summary for details * . Review of Systems - Review of Systems Constitutional: Weakness, Malaise ENT: negative: Ear Pain, Ear Discharge, Nose Pain, Nose Discharge, Nose Congestion, Mouth Pain, Mouth Swelling, Throat Pain, Throat Swelling, Other Respiratory: negative: Cough, Dry, Shortness of Breath, Hemoptysis, SOB with Excertion, Pleuritic Pain, Sputum, Wheezing Cardiovascular: negative: Chest Pain, Palpitations, Orthopnea, Paroxysmal Noc. Dyspnea, Edema, Light Headedness, Other Gastrointestinal: negative: Nausea, Vomiting, Abdominal Pain, Diarrhea, Constipation, Melena, Hematochezia, Other Genitourinary: negative: Dysuria, Frequency, Incontinence, Hematuria, Retention , Other Musculoskeletal: Shoulder Pain, Arm Pain Neurological: negative: Weakness, Numbness, Incoordination, Change in Speech, Confusion, Seizures, Other - Medications/Allergies Allergies/Adverse Reactions: Allergies Allergy/AdvReac Type Severity Reaction Status Date / Time No Known Allergies Allergy Verified 08/18/17 23:54 Medications: Current Medications Hydrocodone Bitart/Acetaminophen ([place] 10/325) 1 tab PO Q4H PRN PRN Reason: Moderate Pain (4-6) Last Admin: 10/08/17 10:38 Dose: 1 tab Al Hydroxide/Mg Hydroxide (Maalox) 30 ml PO Q6H PRN PRN Reason: Heartburn or Indigestion Albuterol/Ipratropium (Duoneb) 3 ml NEB Q4H PRN PRN Reason: SOB &/or Wheezing Last Admin: 10/03/17 11:22 Dose: 3 ml Apixaban (Eliquis) 10 mg PO BID [facility] Last Admin: 10/06/17 08:07 Dose: 10 mg Bisacodyl (Dulcolax) 10 mg PO DAILYPRN PRN PRN Reason: CONSTIPATION Last Admin: 10/02/17 20:18 Dose: 10 mg Docusate Sodium (Colace) 100 mg PO BID [facility] Last Admin: 10/08/17 10:35 Dose: 100 mg Fentanyl (Duragesic) 100 mcg TD Q3D [facility] Last Admin: 10/06/17 20:35 Dose: 100 mcg Ferrous Sulfate (Feosol) 325 mg PO BID[facility] Last Admin: 10/08/17 10:35 Dose: 325 mg Gabapentin (Neurontin) 300 mg PO BID [facility] Last Admin: 10/08/17 10:35 Dose: 300 mg Guaifenesin (Organ-I Nr) 600 mg PO Q6H PRN PRN Reason: .CONGESTION Last Admin: 10/03/17 21:37 Dose: 600 mg Piperacillin Sod/Tazobactam Sod 3.375 gm/ Miscellaneous Medication 1 each/ Sodium Chloride 100 mls @ 200 mls/hr IVPB Q6HR [facility] Last Admin: 10/08/17 06:00 Dose: 100 mls Sodium Chloride (Normal Saline 0.9%) 1,000 mls @ 100 mls/hr IV .Q10H [facility] Last Admin: 10/08/17 05:35 Dose: 1,000 mls Vancomycin HCl 750 mg/ Sodium (Chloride) 250 mls @ 250 mls/hr IVPB 1000,2200 [facility] Lidocaine HCl (Xylocaine 2% Viscous) 15 ml SSP QIDPRN PRN PRN Reason: Sore mouth Last Admin: 10/06/17 10:32 Dose: 15 ml Lorazepam (Ativan) 1 mg PO Q4H PRN PRN Reason: Anxiety Lorazepam (Ativan) 2 mg PO Q4H PRN PRN Reason: Anxiety unrelieved by 1mg dose Last Admin: 10/06/17 21:47 Dose: 2 mg Miscellaneous Medication (Pharmacy To Dose) 0 each IVPB ASDIR [facility] Morphine Sulfate (Duramorph) 2 mg IV Q4H PRN PRN Reason: Pain Last Admin: 10/07/17 10:52 Dose: 2 mg (Capecitabine [ (Capecitabine] 4 Tab)) 4 tab PO BID [facility] Ondansetron HCl (Zofran Odt) 4 mg PO Q6H PRN PRN Reason: Nausea/Vomiting Ondansetron HCl (Zofran) 4 mg IVP Q6H PRN PRN Reason: Nausea/Vomiting Last Admin: 10/04/17 09:24 Dose: 4 mg Pantoprazole Sodium (Protonix) 40 mg PO BID [facility] Last Admin: 10/08/17 10:35 Dose: 40 mg Phenol (Chloraseptic [place] 180 Ml Bot) 0 ml PO BIDPRN PRN PRN Reason: Sore Throat Last Admin: 10/02/17 13:11 Dose: 1 spr Sodium Chloride (Flush - Normal Saline) 10 ml IVF Q12HR [facility] Last Admin: 10/08/17 10:40 Dose: 10 ml Sodium Chloride (Flush - Normal Saline) 10 ml IVF PRN PRN PRN Reason: Saline Flush Last Admin: 10/04/17 05:46 Dose: 10 ml Throat Lozenges (Cepastat Lozenges) 1 irwin PO Q4H PRN PRN Reason: SORE THROAT Last Admin: 10/02/17 10:32 Dose: 1 irwin
--- NOTE | 2017-10-08 13:32 | DIS ---
DATE OF ADMISSION: 09/30/2017 DATE OF DISCHARGE: 10/08/2016 CONDITION AT THE TIME OF DISCHARGE: Stable with high risk of decompensation. DISCHARGE DISPOSITION: Home with hospice. DISCHARGE DIAGNOSES: 1. 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 2. Pulmonary embolism. 3. Severe deconditioning. 4. Acute gastrointestinal bleed leading to acute blood loss anemia. 5. Chronic nonischemic cardiomyopathy. 6. Gastroesophageal reflux disease. 7. Chronic pain due to malignancy. 8. Postobstructive pneumonia. 9. Neutropenia secondary to cancer chemotherapy. 10. Hypokalemia. DISCHARGE MEDICATIONS: As per the hospice team. PROCEDURES DONE IN THE HOSPITAL: 1. Include CT angio of the thorax, CT angio showed left lower lobe segmental and distal segmental p ulmonary emboli. It also showed a right perihilar mass with small partially loculated right pleural effusion with several pulmonary nodules in the left lung. 2. Repositioning of the MediPort needle. ed. 3. Soft tissue CT scan of the neck, which showed necrotic lymphadenopathy with conglomeration and m ass-like prominence of the upper middle chest consistent with malignancy and necrotic metastatic luis antonio nopathy. Retropharyngeal edema. 4. Upper extremity CT scan which showed severe right upper extremity and right soft tissue edema du e to the mass effect along with right brachiocephalic vein from the large mediastinal mass. Extensi ve central necrosis throughout the right mediastinum extending to the pleural space enveloping the s evere vena cava consistent with superior vena cava syndromes clinically. Also, soft tissue deposits within the right deltoid muscle and teres minor muscle on the right side consistent with metastasis . 5. CT scan of the brain on 10/07/2017 due to encephalopathy which showed right periorbital facial s oft tissue swelling, but nothing acute. 6. Lower extremity ultrasound bilaterally, which does not show any DVT. CONSULTATIONS INHOUSE: Oncology. ADMISSION HISTORY: Ms. Forte is a very pleasant, but unfortunate 57-year-old female with history of breast cancer in remission up until May of this year, who presented to the emergency room for complaints of swelling of the left upper extremity as well as chest, throat, and abdominal pain. She has recently been diagnosed with relapse and has been undergoing chemotherapy w ith the MediPort placement and was followed by Oncology as an outpatient. At the time of presentati on, she underwent a CT scan of thorax with the possibility of superior vena cava syndrome. It was c onsistent with same with extensive mediastinal necrotic lymphadenopathy. It also showed pulmonary e mbolism. She was started on therapeutic dose of Lovenox and was admitted for further evaluation. Micky taveras see admission history and physical for further details. HOSPITAL COURSE: The patient did very poorly throughout her hospitalization with continued pain in her arms and continued swelling. She was managed with increasing dosages of fentanyl patch along wi th morphine. Oncology was consulted and they followed the patient throughout her hospitalization as well. Eventually, she underwent a CT scan of the soft tissue of the neck and upper extremity with the results above-mentioned. She was found to have aggressive progression of her metastatic disease . Unfortunately, the patient started to have active gastrointestinal bleed being on blood thinners, wh ich was changed from Lovenox to Eliquis by now. Her hemoglobin dropped to the point where she had r equired 3 units of packed RBC resuscitation. Given the poor prognosis and aggressive progression of the disease there was not much in terms of tr eatment that Oncology has to offer. Eliquis was also stopped because of active gastrointestinal ble ed. Multiple attempts were made with family conference involving the palliative care team as well. However, the patient remained a full code throughout her hospitalization, but eventually they agree d that no further treatment is available and wanted to take the patient home with hospice. This was arranged and actually the patient was discharged yesterday, but the family requested one more night in the hospital until hospice has set up at home. As of this morning, the patient remained hemodynamically stable and is discharged to home with [facility]. She will follow up if she survives this acute episode with Oncology. At this time, her prognos is is grave and that is not unexpected. The patient was seen and examined prior to discharge. Please see hospitalist progress note from angel malone's date for further details. Total time spent 32 minutes.
[2017-10-08] MEDS ORDERED: Vancomycin HCl 750 MG in Sodium Chloride 0.9% 250 ML 250 ML IVPB SCH (22:00)
== END 2017-10-08 14:03 | disposition hospice, home (50) | DRG 175 ==
LOC: T4-B 17:43 → ONC 10-01 17:34
PROVIDERS: ADMIT Internal Medicine; ATTEND Internal Medicine
PROC: 30233N1 Transfusion of Nonautologous Red Blood Cells into Peripheral Vein, Percutaneous Approach (ICD-10-PCS; principal; 2017-10-06)
DX: I26.99 Other pulmonary embolism without acute cor pulmonale (principal); G93.40 Encephalopathy, unspecified; J18.9 Pneumonia, unspecified organism; D70.1 Agranulocytosis secondary to cancer chemotherapy; C78.1 Secondary malignant neoplasm of mediastinum; C78.00 Secondary malignant neoplasm of unspecified lung; C79.89 Secondary malignant neoplasm of other specified sites; K92.2 Gastrointestinal hemorrhage, unspecified; I42.9 Cardiomyopathy, unspecified; I87.1 Compression of vein; D62 Acute posthemorrhagic anemia; E87.1 Hypo-osmolality and hyponatremia; C50.911 Malignant neoplasm of unspecified site of right female breast; Z95.828 Presence of other vascular implants and grafts; I25.10 Atherosclerotic heart disease of native coronary artery without angina pectoris; M54.9 Dorsalgia, unspecified; Z95.5 Presence of coronary angioplasty implant and graft; Z90.11 Acquired absence of right breast and nipple; Z87.891 Personal history of nicotine dependence; Z79.891 Long term (current) use of opiate analgesic; G89.3 Neoplasm related pain (acute) (chronic); K21.9 Gastro-esophageal reflux disease without esophagitis; E87.6 Hypokalemia; C50.919 Malignant neoplasm of unspecified site of unspecified female breast; Z92.21 Personal history of antineoplastic chemotherapy; E66.9 Obesity, unspecified; Z68.30 Body mass index [BMI] 30.0-30.9, adult; Z51.5 Encounter for palliative care
CPT/HCPCS: 36415; 36430; 36598; 70450; 70486; 70491; 71275; 80048; 80053; 80202; 82274; 82533; 82728; 83540; 83550; 85025; 86850; 86900; 86901; 87040; 93970; 94640; A4216; G8978-GP-CK; G8979-GP-CJ; J1200; J1642; J1650; J2060; J2274; J2405; J2543; J2930; J3370; J3480; J7050; J7620; P9016; S0028

== ENCOUNTER 2017-11-02 14:41 | Inpatient (IN) | payer OTHER ==
[2017-11-02] MEDS ORDERED: EPINEPHrine 1 MG/ML AMP ONE (15:06)
[2017-11-02] MEDS ORDERED: EPINEPHrine 1 MG/10 ML Abboject SYRINGE ONE ×2 (15:07→15:09)
[2017-11-02 15:18] LABS: Bilirubin Negative (Negative); Blood, Urine Trace (Negative); Glucose, Urine (Dipstick) Negative (Negative); Ketone, Urine Negative (Negative); Nitrite Negative (Negative); Protein, Urine (Dipstick) 30 mg/dL (Neg-Trace); Urobilinogen 0.2 mg/dL (0.2-1.0)
[2017-11-02 15:20] LABS: Bacteria/HPF None Seen HPF (None Seen); RBC/HPF 0-3 HPF (0-3)
[2017-11-02] MEDS ORDERED: Norepinephrine 8 MG/0.9% NS 250 ML ONE (15:23)
[2017-11-02 15:28] LABS: Base Excess -7.9 mEq/L (0 (+/- 2.5)); O2 Content (venous) 1.5 VOL% (12.5-17.5); pH (venous) 7.16 (7.35-7.45)
[2017-11-02] MEDS ORDERED: Fentanyl 20 MCG/ML 250 ML ONE (15:30)
[2017-11-02 15:31] LABS: Hyaline Casts/LPF 4-6 HYALINE CAST LPF (0-3 Hyaline); Yeast-All Forms None Seen HPF (None Seen)
[2017-11-02 15:32] LABS: Renal Epithelial 0-3 HPF (0-3); Transitional Epithelial 0-3 HPF (0-3)
[2017-11-02] MEDS ORDERED: Atropine Sulfate 1 mg/10 ml Syringe ONE (15:43)
[2017-11-02 16:01] LABS: Hematocrit 17.1 % (36.0-47.0); Mean Platelet Volume 8.8 fL (7.4-10.4); Red Blood Cell (RBC) Count 1.84 mill/uL (4.20-5.40)
[2017-11-02 16:05] LABS: ALT (SGPT) 9 U/L (8-55); AST (SGOT) 17 U/L (5-34); Alkaline Phosphatase 83 U/L (40-150); Anion Gap 25 mmol/L (10-20); BUN (Urea Nitrogen) 20 mg/dL (9.8-20.1); Bilirubin, Total 0.3 mg/dL (0.2-1.2); Calc. Creatinine Clearance 0 mL/min (70-130); Calcium 6.9 mg/dL (7.8-10.44); Carbon Dioxide 16 mmol/L (22-29); Chloride 104 mmol/L (98-107); Estimated GFR-MDRD 44; Globulin 2.1 g/dL (2.4-3.5); Protein, Total 3.7 g/dL (6.0-8.3)
[2017-11-02] MEDS ORDERED: Ondansetron HCl/PF 4 MG/2 ML Vial IVP PRN (16:13)
[2017-11-02] MEDS ORDERED: Bisacodyl 10 MG SUPP PR PRN (16:13)
[2017-11-02] MEDS ORDERED: Sedation Protocol FS ONE (16:13)
[2017-11-02] MEDS ORDERED: Acetaminophen 650 MG Suppository PR PRN (16:13)
[2017-11-02] MEDS ORDERED: Propofol 1,000 MG/100 ML VIAL IV PRN (16:18)
[2017-11-02] MEDS ORDERED: Fentanyl 20 MCG/ML 250 ML IVPB SCH (16:18)
[2017-11-02] MEDS ORDERED: DISCONTINUE PREVIOUS NARCOTIC PAIN MEDICATIONS AND BENZODIAZEPINES FS SCH (16:18)
[2017-11-02] MEDS ORDERED: Lorazepam 2 MG/ML VIAL SLOW IVP PRN (16:18)
[2017-11-02 16:22] LABS: Anisocytosis MARKED = >30 cells (100X) (0-5/hpf); Band 35 % (5-11); Hypochromia SLIGHT = 6-15 cells (100X) (0-5/hpf); Metamyelocyte 5 % (0-0); Myelocyte 5 % (0-0); Neutrophil 22 % (42-75); Nucleated RBC 72 % (0); Ovalocytes SLIGHT = 2-5 cells (100X) (0-1/hpf); Polychromasia MODERATE = 3-4 cells (100X) (0-2/hpf); Promyelocytes 1 % (0-0); Reactive Lymphocytes 1 % (0-10); Schistocytes SLIGHT = 2-5 cells (100X) (0-1/hpf); Spherocytes MODERATE= 6-15 cells (100X) (None Seen); Target Cells SLIGHT = 2-5 cells (100X) (0-1/hpf); Tear Drops SLIGHT = 2-5 cells (100X) (0-1/hpf); Toxic Granulation SLIGHT; Vacuoles SLIGHT
[2017-11-02 16:23] LABS: White Blood Cell (WBC) Count 7.4 thou/uL (4.8-10.8)
[2017-11-02] MEDS ORDERED: Morphine 4 MG/ML VIAL SLOW IVP PRN (16:30)
--- NOTE | 2017-11-02 16:50 | RAD ---
RADIOGRAPH CHEST 1 VIEW: Date: 11/02/17 Time: 3:34 p.m. HISTORY: 57-year-old female status post intubation and central line placement. COMPARISON: 09/28/17 FINDINGS: Two AP supine images, with patient rotated to the right. Endotracheal tube has been placed with dista l tip overlying the mid thoracic trachea. NG tube has been placed, with distal tip at the level of th e diaphragm. Again noted is the elevated right hemidiaphragm. There is a greater degree of total opac ification of the lower two-thirds to lower three-fourths of the right lung, perhaps by combination of pleural effusion and consolidations. There is a right mediastinal or paramediastinal pulmonary mass with irregular margins, which appears larger than on the previous study. It is uncertain how much of this apparent difference is real and how much is technical, due to the patient rotation. Right subcla vian implantable vascular access port remains. There are several pulmonary nodules in the left lung c onsistent with metastases. There is interval increase in volume of the small left pleural effusion. T here is no evidence of any new central venous catheter on the current study compared to the previous, despite the history. Supine positioning makes this study relatively insensitive for pneumothorax det ection. IMPRESSION: 1. Status post intubation with endotracheal tube tip in the mid thoracic trachea. 2. Status post nasogastric tube placement, with distal tip near the esophagogastric junction. 3. Interval increase in volume of large right pleural effusion. 4. Interval worsening of air space densities in the right lung, in addition to total opacificati on of the right lower lobe. 5. Interval increase in volume of smaller left pleural effusion. 6. Pulmonary metastases. 7. 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 8. Right subclavian implantable vascular access port remains. 9. No new central vascular catheter identified. NIKOLAI [] POS: TONG
[2017-11-02] MEDS: Piperacillin/Tazobactam 2.25 GM in Sodium Chloride 0.9% 100 ML IVPB SCH (20:15)
[2017-11-02] MEDS: Phenylephrine 10 MG/NS 250 ML 250 ML IVPB PRN ×2 (20:21→21:19)
[2017-11-02] MEDS ORDERED: Sodium Chloride 0.9% 1,000 ML IV SCH (20:45)
[2017-11-02] MEDS: Heparin 5,000 UNITS/ML VIAL SC SCH (21:04)
[2017-11-02] MEDS: Vancomycin HCl 1.25 GM in Sodium Chloride 0.9% 250 ML 250 ML IVPB SCH (21:04)
[2017-11-02] MEDS: Norepinephrine 8 MG/0.9% NS 250 ML IVPB PRN (21:20)
--- NOTE | 2017-11-02 22:07 | HP ---
PRIMARY CARE PHYSICIAN: Dr. Mallory Jarrett. REASON FOR ADMISSION: Status post cardiopulmonary arrest. HISTORY OF PRESENT ILLNESS: A 57-year-old female who was brought to the emergency room, unresponsive , patient was intubated. The patient had a cardiopulmonary arrest at the scene. She required resusc itation and subsequently she was brought to emergency room. 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 She was DNR and she was discharged to home with home hospice, but family opal pinto revoked hospice. In the emergency room, patient had another code blue and patient required resuscitation. The patient was resuscitated based on ACLS protocol and subsequently pulse was palpable. The patient was kept o n norepinephrine drip. The patient was hypotensive, hypothermic and routine blood tests showed lactic acidosis. The patient was not in position to provide any history and family member does not have any clue about what happened. I spent entire time in the emergency room talking to family member, ER physician and during the resus citative procedure. REVIEW OF SYSTEMS: All review of systems tried to review with the patient, but unable to review at t his point because of patient is intubated. PAST MEDICAL HISTORY: Advanced metastatic breast carcinoma with metastases to the deltoid muscle, as well as mediastinum and superior vena cava syndrome and metastases to lung and pleura; history of pu lmonary embolism; history of GI bleed leading to acute blood loss anemia; chronic nonischemic cardiom yopathy; gastroesophageal reflux disease; chronic pain disorder due to malignancy; history of postobs tructive pneumonia; neutropenia due to chemotherapy; severe physical deconditioning; degenerative javan nt disease; obesity. PAST SURGICAL HISTORY: Cardiac catheterization with stent placement and PTCA, right mastectomy, chol ecystectomy, left eye enucleation. PAST PSYCHIATRIC HISTORY: Reviewed and negative. ALLERGIES: No known drug allergies. FAMILY HISTORY: Positive for hypertension and heart disease among several family members. SOCIAL HISTORY: The patient is . She is a former smoker. She does not have any alcohol abus e history. She has 3 daughters and Joelle is her surrogate decision maker. MEDICATIONS: The patient was discharged on following medications: Capecitabine 2 grams b.i.d., Core g 6.25 mg b.i.d., Duragesic patch 50 mcg every 3 days, gabapentin 300 mg b.i.d., morphine immediate r elease 15 mg q.4 hourly p.r.n., tramadol 50 mg q.4 hourly p.r.n. EMERGENCY ROOM COURSE: The patient was given IV fluid, epinephrine, Levophed drip. PHYSICAL EXAMINATION: VITAL SIGNS: Lowest blood pressure was 67 systolic. Pulse 173, temperature 92.5, respiratory rate 2 2, saturation 99% on ventilator. Weight 89.4 kilograms. GENERAL: The patient is currently intubated, unresponsive, comatose. HEAD: Normocephalic, atraumatic. EYES: Pupils are reactive to light on one side. ENT: Endotracheal tube in place, orogastric tube in place. NECK: Supple, elevated JVD. LUNGS: Coarse breath sounds bilaterally, air entry reduced at both bases. CARDIAC: S1, S2, tachycardia, no murmur elicited, no gallop, no rub. ABDOMEN: Soft, obesity present, no distention. EXTREMITIES: Upper extremity. Left upper extremity is swollen and edematous as well as right upper extremity, upper chest wall and upper abdomen is also swollen and edematous. Lower extremity: Bilat eral trace lower extremity edema noted. NEUROLOGIC: The patient is unresponsive. Neurologic examination is not possible. SKIN: No skin rash. PSYCHIATRIC: Unable to assess at this point. SIGNIFICANT LABORATORY DATA: EKG tachycardia and variable arrhythmia noted. Chest x-ray, increased right pleural effusion as well as left pleural effusion, right basilar atelectasis, infiltration. CB C: WBC 7.4, hemoglobin 4.7, platelets 209 with bandemia. VBG: A pH 7.16, CO2 of 57.1, O2 of 21.6, bicarbonate 20. BMP: Sodium 142, potassium 3.2, chloride 104, anion gap 25, BUN 20, creatinine 1.49 , lactic acid 15.2, calcium 6.9. LFT: AST 17, ALT 9, alkaline phosphatase 83. TSH 7.12. Cortisol 43.8. Urinalysis suggestive of UTI. ASSESSMENT AND PLAN: IMPRESSION: 1. Status post cardiopulmonary arrest, required resuscitation out of hospital. 2. Acute respiratory failure with hypoxia, required intubation out of hospital. 3. Recurrent cardiopulmonary arrest in the emergency room, required CPR and resuscitation per ACLS p rotocol. 4. Septic shock with hypothermia, hypotension, tachycardia, and lactic acidosis, source of infection , likely pneumonia and urinary tract infection. 5. Urinary tract infection. 6. Severe anemia. 7. Bandemia, likely due to sepsis. 8. Acute kidney failure. 9. Metastatic breast carcinoma with metastasis to mediastinum, pleura, lung and superior vena cava s yndrome. 10. Nonischemic cardiomyopathy. 11. Chronic pain disorder due to malignancy. 12. Hospice status revoked by family. 13. Deep venous thrombosis prophylaxis, heparin 5000 units subcu twice daily if there is no evidence of bleeding. 14. Gastrointestinal prophylaxis, Protonix 40 mg IV daily. PLAN: The patient will be admitted in ICU. Her prognosis is extremely poor. I discussed with the f amily member about the goal of care, but at this point they wanted to keep as a FULL CODE status. Pu lmonary will be consulted for vent management and I spoke with Dr. Schilling about the patient. Dr. Jessica Young will be consulted and ER physician, already spoke with ER physician. We will continue Levo phed drip. We will continue broad spectrum antibiotic coverage with vancomycin and Zosyn. We will a lso continue Solu-Medrol. The patient will need blood transfusion. The patient is at risk for recur rent cardiopulmonary arrest; in that case, the patient will need resuscitation as per family member r león. Palliative care will be consulted. CODE STATUS: At this point, the patient's family member keeps her as a FULL CODE status. CONDITION: Extremely critical. Chances of survival are extremely negligible. Chances of vegetative state is likely if survives. PROGNOSIS: Grave. Total time spent providing critical care to this patient in the emergency room more than 40 minutes.
[2017-11-03] MEDS: Piperacillin/Tazobactam 2.25 GM in Sodium Chloride 0.9% 100 ML IVPB SCH ×4 (00:02→18:17)
[2017-11-03] MEDS: Phenylephrine 10 MG/NS 250 ML 250 ML IVPB PRN ×2 (00:02→03:12)
[2017-11-03] MEDS ORDERED: Sodium Chloride 0.9% 500 ML IVPB SCH (01:15)
[2017-11-03] MEDS ORDERED: Sodium Bicarb 50 MEQ/50 ML Abboject 8.4% SYRINGE IVP SCH (02:15)
[2017-11-03] MEDS ORDERED: Calcium Gluc 4.6 MEQ/10 ML (100 MG/ML) SLOW IVP SCH (02:15)
[2017-11-03] MEDS ORDERED: Sodium Bicarbonate 150 MEQ in Sterile Water Injection 1,000 ML IV SCH (02:30)
[2017-11-03 02:41] LABS: Oxyhemoglobin 88.2 % (94.0-97.0); Sodium 141 mmol/L (135-148)
[2017-11-03 02:42] LABS: Mechanical Tidal Volume 500 ml; Modified Allen's Test POSITIVE; Pressure Support 10 cmH2O; Vent YES
[2017-11-03 02:43] LABS: Mode SIMV
--- NOTE | 2017-11-03 03:03 | PDOC.EVN ---
Event Note - Event Note Event Note: Notified me about pt blood pressure being low O.E: VS: Sytsolic bp 102 per doppler, 30, 95% General: lethargci on vent support Oral cavity: Positive ET tube HEENT: Anterior nares patent CVS: S1 s2 present, tachy, no rubs, no gallop RS: Positive tachypnea, on vent support PROFILE SHAPER OPERATOR: lethargic, difficult to arouse Labs: NA 141, K 3.4, HGB 9.1, PH 7.25, PCO2 27, PO2 67, Bicarb 12.1 A/P: Pt is 57 yrs old female 1. Sepsis 2. ACute respiratory failure 3. Metabolic acidosis 4. Anemia 4. Hypotension Plan: Will give 2 amps of sodium bicarbonate iv x1 Will start sterile water with 3 amps of bicarb at 100/hr continue vasopressors Per RN she already notified Dr Schilling. Currently on two vasopressors. D/W Pt daughter at bedside and explained to her about pt critical condition.
[2017-11-03] MEDS ORDERED: Phenylephrine HCL 20 MG in Sodium Chloride 0.9% 250 ML 250 ML IVPB PRN ×2 (03:20→03:23)
[2017-11-03 05:09] LABS: ALT (SGPT) 14 U/L (8-55); AST (SGOT) 29 U/L (5-34); Alkaline Phosphatase 98 U/L (40-150); Anion Gap 25 mmol/L (10-20); BUN (Urea Nitrogen) 23 mg/dL (9.8-20.1); Bilirubin, Total 0.9 mg/dL (0.2-1.2); Calc. Creatinine Clearance 53 mL/min (70-130); Carbon Dioxide 18 mmol/L (22-29); Chloride 105 mmol/L (98-107); Estimated GFR-MDRD 38; Globulin 2.6 g/dL (2.4-3.5); Protein, Total 4.4 g/dL (6.0-8.3)
[2017-11-03] MEDS ORDERED: Dextrose 50% Abboject 50 ML SYRINGE ONE ×2 (05:10→05:32)
--- NOTE | 2017-11-03 06:09 | PRG ---
DATE OF SERVICE: 11/02/2017 HISTORY: Khushbu Forte is a 57-year-old, morbidly obese, female, who was under hospic e care for metastatic breast cancer when she started having some abdominal pain today. History is ob tained from three of her daughters. She was given what appears to be some liquid nitrogen 0.5. She went to commode and apparently has sl ummed down fairly weak, become less responsive, ambulance was called and somewhere between the ER tra nsfer to the hospital. She had a cardiopulmonary arrest requiring CPR several times and was intubate d. Patient was admitted to the hospice care, but as per the three daughters who were at the bedside, she was never a DNR. They insisted multiple times that they want to continue aggressive CPR, continue v ent support even though her prognosis is grave. The patient is at present in the ER intubated on the vent. Extensive previous notes from the hospitalization has revealed initial diagnosis of breast cancer in 1999 at the [facility] where she received chemotherapy. In 05/2017, she was found to have evidence of exten sive metastatic breast cancer. She had a MediPort inserted. Her mets apparently involved the lungs, hilar nodes and pleura. Oncology said she was not a candidate for additional chemotherapy and hospice was initiated at that t mel. She has severe limitation to activity. PAST MEDICAL HISTORY: Pertinent for hypertension, arthritis, asthma, coronary artery disease, tobacc o abuse, history of stent. PREVIOUS SURGERIES: Lumpectomy, appendix, chemoradiation, gallbladder. She recently had a CT done, which showed extensive superior vena cava syndrome along the upper extrem ity. X-ray now shows extensive pleural effusion, right side. She has had a previous thoracotomy performed by Dr. Boateng for pleural effusion as per the family's recollection. HOME MEDICINE: Includes tramadol, Duragesic 150, morphine 15 sublingual, gabapentin 300, Coreg 6.25, mg a day. ALLERGIES: Unknown. PHYSICAL EXAMINATION: GENERAL: On examination, intubated on the vent. HEENT: Does not have a left eye. Right eye pupil is 2 mm sluggish. VITAL SIGNS: Sats are barely 91-92%, on 100% FiO2, 8 of PEEP, blood pressure is 100/80. CHEST: Decreased breath sounds without rhonchi. CARDIAC: Sinus tachycardia. ABDOMEN: Distended, soft. IMPRESSION: 1. Status post cardiopulmonary arrest. 2. Respiratory arrest. CPR multiple times, markedly abnormal chest x-ray with right pleural effusio n, loss of volume, hilar mass. MediPort in place. Small left-sided pleural effusion. LABORATORY DATA: White count 10,000, H&H is 14 and 17, platelet count is 209. Venous blood gas was only 21. Lactic acid was 15.2. TSH was normal. Chemistry profile shows GFR is 44, creatinine 1.49. Potassium 3.2. IMPRESSION: 1. Status post cardiopulmonary arrest. 2. Tobacco abuse. 3. Extensive metastatic breast cancer. 4. Pleural effusion. 5. SVC extensive. 6. Failed chemotherapy for breast cancer. Once again all on the patient's wishes, they want everything to be done even though she may have mult iple CPR progress. Even though she have multiple arrests. The family wants to continue all supportive care. This is a futile process and the process was still trying to make sense with the present situation. Continue vent support. I am not inclined to do any procedures (07:16). Comfort care only indicated in my mind. We will follow. 45-minutes critical care time.
[2017-11-03] MEDS ORDERED: Dextrose 50% Abboject 50 ML SYRINGE IVP PRN (06:35)
[2017-11-03] MEDS ORDERED: Dextrose 5% in Water 1,000 ML IV PRN (06:35)
[2017-11-03] MEDS ORDERED: Sodium Bicarbonate 150 MEQ in Dextrose 5% in Water 1,000 ML IV SCH ×2 (06:45)
[2017-11-03 07:26] LABS: Oxyhemoglobin 89.4 % (94.0-97.0); Sodium 143 mmol/L (135-148)
[2017-11-03] MEDS: Phenylephrine HCL 20 MG in Sodium Chloride 0.9% 250 ML 250 ML IVPB SCH ×9 (07:30→22:56)
[2017-11-03 07:42] LABS: Mechanical Tidal Volume 500 ml; Mode SIMV; Modified Allen's Test POSITIVE; Pressure Support 10 cmH2O; Vent YES
--- NOTE | 2017-11-03 07:57 | RAD ---
AP VIW OF THE CHEST: INDICATION: Daily CCU examination. IMPRESSION: There is an enlarging right-sided pleural effusion with reduced aeration of the right upper lung and right lower lobe. Tubes and lines are stable. The left lung is clear. No pneumothorax is evident. POS: [facility]
[2017-11-03] MEDS: Heparin 5,000 UNITS/ML VIAL SC SCH ×3 (09:00→20:43)
[2017-11-03] MEDS ORDERED: Pantoprazole 40 MG VIAL IVP SCH (09:00)
[2017-11-03 09:29] LABS: Anisocytosis MODERATE=16-30 cells (100X) (0-5/hpf); Band 49 % (5-11); Burr Cells MODERATE= 6-15 cells (100X) (0-1/hpf); Hematocrit 30.4 % (36.0-47.0); Hypochromia SLIGHT = 6-15 cells (100X) (0-5/hpf); Macrocytosis SLIGHT = 6-15 cells (100X) (0-5/hpf); Mean Platelet Volume 9.5 fL (7.4-10.4); Metamyelocyte 2 % (0-0); Microcytosis SLIGHT = 6-15 cells (100X) (0-5/hpf); Neutrophil 38 % (42-75); Nucleated RBC 45 % (0); Poikilocytosis SLIGHT = 6-15 cells (100X) (0-5/hpf); Polychromasia MODERATE = 3-4 cells (100X) (0-2/hpf); Red Blood Cell (RBC) Count 3.23 mill/uL (4.20-5.40); White Blood Cell (WBC) Count 21.1 thou/uL (4.8-10.8)
[2017-11-03] MEDS: Norepinephrine 8 MG/0.9% NS 250 ML IVPB PRN ×4 (09:38→22:57)
--- NOTE | 2017-11-03 10:21 | PRG ---
DATE OF SERVICE: 11/03/2017 SUBJECTIVE: She was intubated on the vent. She had two pressors, on Levophed and Jimmie-Synephri ne. OBJECTIVE: VITAL SIGNS: Pulse of 143, blood pressure systolic 92. GENERAL: Unresponsive. Right eye is only visible. Pupils are 2 mm, unresponsive. CHEST: Extensive rhonchi and crackles. CARDIAC: Sinus tachycardia. ABDOMEN: No masses. NEUROLOGIC: She is unresponsive as noted. LABORATORY DATA: X-ray shows complete opacification of the right lung. Her lab shows a creatinine i s 1.68, glucose was 41 and 98 this morning. White count is not back yet. Sodium 141. Last blood gases showed a pO2 of 67 and pCO2 of 27, pH of 7.25, rate of 18, 60%. IMPRESSION: 1. Multiorgan failure. 2. Respiratory failure secondary to extensive metastatic breast cancer, superimposed pneumonia, pleu ral effusion. 3. Probably anoxic injury. 4. Renal failure. PLAN: After multiple discussions with the family at length, they continue to press for full code sta tus. At this stage, I have nothing additional to offer. I would not add a third vasopressor. More than l ikely, she is going to have a cardiac arrest. They want CPR. We will continue CPR at that time unti l she is systolic. Clearly any additional aggressive workup is totally unwarranted and futile. There are no family members are present at the bedside. We will discuss when they arrive. One-half hour critical care time.
--- NOTE | 2017-11-03 11:51 | PDOC.PN ---
- Subjective Encounter Start Date: 11/03/17 Encounter Start Time: 10:00 -: non-verbal, old records requested/rev pt is intubated, she is on 2 vasopressure, still hypotensive, hypoglycemic - Objective MAR Reviewed: Yes Vital Signs & Weight: Vital Signs (12 hours) Temp Pulse Resp BP Pulse Ox 11/03/17 10:25 133 H 11/03/17 09:00 98.3 F 65/30 L 11/03/17 08:00 98.2 F 32 H 60/30 L 11/03/17 07:04 145 H 11/03/17 06:00 19 11/03/17 04:00 25 H 11/03/17 03:04 156 H 11/03/17 02:00 34 H 11/03/17 00:42 152 H 38 H 11/03/17 00:00 98.4 F 30 H 100 Weight Admit Weight 197 lb 1.492 oz Weight 197 lb 1.492 oz Most Recent Monitor Data Heart Rate from ECG 139 NIBP 100/68 NIBP BP-Mean 79 Respiration from ECG 30 SpO2 100 I&O: 11/02/17 11/03/17 11/04/17 06:59 06:59 06:59 Intake Total 2790 271 Output Total 90 150 Balance 2700 121 Result Diagrams: 11/03/17 06:20 11/03/17 03:40 Additional Labs: Accuchecks 11/03/17 11/03/17 11/03/17 10:42 10:34 10:04 POC Glucose 200 H 53 L* Less than 35 L* 11/03/17 11/03/17 05:56 05:32 POC Glucose 98 67 L Radiology Reviewed by me: Yes (chest xray) EKG Reviewed by me: Yes (tachycardia) Phys Exam - Physical Examination Constitutional: NAD intubated Neck: no JVD, supple Respiratory: no wheezing, no rales, no rhonchi Cardiovascular: RRR, no significant murmur, no rub Gastrointestinal: soft, non-tender, no distention, positive bowel sounds Musculoskeletal: pulses present, edema present Lymphatic: no nodes Skin: no rash Dx/Plan (1) Acute respiratory failure with hypoxemia Code(s): J96.01 - ACUTE RESPIRATORY FAILURE WITH HYPOXIA Status: Acute (2) Cardiopulmonary arrest with successful resuscitation Code(s): I46.9 - CARDIAC ARREST, CAUSE UNSPECIFIED Status: Acute (3) Septic shock Code(s): A41.9 - SEPSIS, UNSPECIFIED ORGANISM; R65.21 - SEVERE SEPSIS WITH SEPTIC SHOCK Status: Acute (4) UTI (urinary tract infection) Status: Acute (5) Pleural effusion Code(s): J90 - PLEURAL EFFUSION, NOT ELSEWHERE CLASSIFIED Status: Chronic (6) Metastatic breast cancer Code(s): C50.919 - MALIGNANT NEOPLASM OF UNSP SITE OF UNSPECIFIED FEMALE BREAST Status: Chronic (7) Superior vena caval syndrome Code(s): I87.1 - COMPRESSION OF VEIN Status: Chronic (8) Hx pulmonary embolism Code(s): Z86.711 - PERSONAL HISTORY OF PULMONARY EMBOLISM Status: Chronic (9) Physical deconditioning Code(s): R53.81 - OTHER MALAISE Status: Chronic (10) Lactic acidosis Code(s): E87.2 - ACIDOSIS Status: Acute (11) Hypoglycemia Code(s): E16.2 - HYPOGLYCEMIA, UNSPECIFIED Status: Acute (12) Chronic pain due to neoplasm Code(s): G89.3 - NEOPLASM RELATED PAIN (ACUTE) (CHRONIC) Status: Chronic (13) Microcytic anemia Code(s): D50.9 - IRON DEFICIENCY ANEMIA, UNSPECIFIED Status: Chronic (14) Obesity (BMI 30.0-34.9) Code(s): E66.9 - OBESITY, UNSPECIFIED Status: Chronic (15) Tobacco abuse Code(s): Z72.0 - TOBACCO USE Status: Chronic Comment: smoking cessation resources, Nicotine patch (16) Hypokalemia Code(s): E87.6 - HYPOKALEMIA Status: Acute (17) Acute kidney failure Status: Acute (18) 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 Status: Chronic (19) Pneumonia Code(s): J18.9 - PNEUMONIA, UNSPECIFIED ORGANISM Status: Acute Qualifiers: Pneumonia type: aspiration pneumonia Lung location: unspecified part of lung (20) GERD (gastroesophageal reflux disease) Code(s): K21.9 - GASTRO-ESOPHAGEAL REFLUX DISEASE WITHOUT ESOPHAGITIS Status: Chronic Qualifiers: - Plan cont current plan of care, plan discussed w/ family, continue antibiotics * continue vasopressure * treat hypoglycemia with protocol treatment * continue empiric antibiotics * medication reviewed as below * prognosis is very poor * condition is critical * supportive care * vent per pulmonary. Review of Systems - Review of Systems Other: unable to review as pt is intubated - Medications/Allergies Allergies/Adverse Reactions: Allergies Allergy/AdvReac Type Severity Reaction Status Date / Time No Known Allergies Allergy Verified 08/18/17 23:54 Medications: Current Medications Acetaminophen (Tylenol) 650 mg IL Q4H PRN PRN Reason: Headache/Fever or Pain Albuterol/Ipratropium (Duoneb) 3 ml NEB [id number] ERINN Last Admin: 11/03/17 07:03 Dose: 3 ml Bisacodyl (Dulcolax) 10 mg IL Q24H PRN PRN Reason: Constipation Dextrose/Water (Dextrose 50%) 25 gm IVP PRN PRN PRN Reason: HYPOGLYCEMIA PROTOCOL Last Admin: 11/03/17 10:06 Dose: 25 gm Glucagon (Glucagon) 1 mg IM PRN PRN PRN Reason: HYPOGLYCEMIA PROTOCOL Heparin Sodium (Porcine) (Heparin) 5,000 units SC TID ERINN Last Admin: 11/03/17 09:00 Dose: 5,000 units Norepinephrine Bitartrate (Levophed) 250 mls @ 0 mls/hr IVPB PRN PRN; Protocol ; Titrate PRN Reason: To maintain MAP > 65 Last Admin: 11/03/17 09:38 Dose: 250 mls Piperacillin Sod/Tazobactam (Sod 2.25 gm/ Sodium Chloride) 100 mls @ 200 mls/ hr IVPB Q6HR ERINN Last Admin: 11/03/17 06:03 Dose: 100 mls Fentanyl (Fentanyl Cadd) 250 mls @ 0 mls/hr IVPB INF ERINN; Titrate PRN Reason: Protocol Stop: 12/02/17 16:18 Fentanyl Citrate (Fentanyl Bolus) 250 mls @ 0 mls/hr IVPB PRN PRN; As Directed PRN Reason: Breakthrough pain Stop: 12/02/17 16:18 Vancomycin HCl 1.25 gm/ Sodium (Chloride) 250 mls @ 166.667 mls/hr IVPB 2100 ERINN Last Admin: 11/02/17 21:04 Dose: 250 mls Phenylephrine HCl 20 mg/ (Sodium Chloride) 252 mls @ 0 mls/hr IVPB PRN ERINN; Titrate PRN Reason: Protocol Last Admin: 11/03/17 09:39 Dose: 252 mls Sodium Bicarbonate 150 meq/ (Dextrose/Water) 1,150 mls @ 100 mls/hr IV INF [facility] Last Admin: 11/03/17 07:30 Dose: 1,150 mls Dextrose/Water (D5w) 1,000 mls @ 0 mls/hr IV INF PRN; As Directed PRN Reason: HYPOGLYCEMIA PROTOCOL Influenza Virus Vaccine (Fluzone Quad [id number] Syringe) 0.5 ml IM .ONCE ONE Stop: 11/04/17 09:01 Lorazepam (Ativan) 2 mg SLOW IVP Q2H PRN PRN Reason: Anxiety to achieve [place] 2-3 Stop: 12/02/17 16:18 Methylprednisolone Sodium Succinate (Solu-Medrol) 40 mg IVP Q6HR [facility] Last Admin: 11/03/17 05:11 Dose: 40 mg Miscellaneous Medication (Pharmacy To Dose) 1 each IVPB PRN PRN PRN Reason: Pharmacy to dose Morphine Sulfate (Morphine) 2 mg SLOW IVP Q2H PRN PRN Reason: Breakthrough pain Stop: 12/02/17 16:18 Discontinue Previous Narcotic Pain Medications And Benzodiazepines 1 each FS .ONE [facility] Stop: 12/02/17 16:18 Ondansetron HCl (Zofran) 4 mg IVP Q6H PRN PRN Reason: Nausea/Vomiting Pantoprazole Sodium (Protonix) 40 mg IVP DAILY [facility] Last Admin: 11/03/17 09:01 Dose: 40 mg Pneumococcal Polyvalent Vaccine (Pneumovax 23) 0.5 ml IM .ONCE ONE Stop: 11/04/17 09:01 Propofol (Diprivan) 1,000 mg IV INF PRN; Protocol PRN Reason: TO ACHIEVE BARAJAS SCORE 2-3 Stop: 12/02/17 16:18 Sodium Chloride (Flush - Normal Saline) 10 ml IVF Q12HR [facility] Last Admin: 11/03/17 09:01 Dose: 10 ml Sodium Chloride (Flush - Normal Saline) 10 ml IVF PRN PRN PRN Reason: Saline Flush
[2017-11-03 14:52] VITALS: BMI 33.8
[2017-11-03 18:20] VITALS: BP 82/30
[2017-11-03] MEDS: Vancomycin HCl 1.25 GM in Sodium Chloride 0.9% 250 ML 250 ML IVPB SCH (20:43)
[2017-11-04] MEDS ORDERED: Vasopressin 40 UNIT, Admixture Fee 1 EACH in Sodium Chloride 0.9% 100 ML IV SCH (00:15)
[2017-11-04] MEDS: Piperacillin/Tazobactam 2.25 GM in Sodium Chloride 0.9% 100 ML IVPB SCH (00:17)
[2017-11-04] MEDS: Phenylephrine HCL 20 MG in Sodium Chloride 0.9% 250 ML 250 ML IVPB SCH (00:52)
[2017-11-04] MEDS ORDERED: Phenylephrine 10 MG/NS 250 ML 250 ML IVPB PRN (01:24)
[2017-11-04 01:32] VITALS: TEMP 97.4
[2017-11-04] MEDS: Phenylephrine 10 MG/NS 250 ML 250 ML IVPB PRN (02:38)
[2017-11-04] MEDS: Norepinephrine 8 MG/0.9% NS 250 ML IVPB PRN (02:53)
[2017-11-04] MEDS ORDERED: EPINEPHrine 1 MG/10 ML Abboject SYRINGE ONE (03:00)
[2017-11-04] MEDS ORDERED: Dextrose 50% Abboject 50 ML SYRINGE ONE (03:00)
[2017-11-04] MEDS ORDERED: Magnesium 5 GM/10 ML Abboject SYRINGE ONE (03:00)
[2017-11-04] MEDS ORDERED: EPINEPHrine 1 MG, Admixture Fee 1 EACH in Dextrose 5% in Water 250 ML IVPB SCH ×3 (03:15)
--- NOTE | 2017-11-04 07:05 | DS ---
DATE OF : 11/04/2017 DISCHARGE DISPOSITION: . PRIMARY CAUSE OF : 1. Septic shock. 2. Acute respiratory failure with hypoxia. 3. Acute kidney failure. 4. Cardiopulmonary arrest. CONTRIBUTING DIAGNOSES: Nonischemic cardiomyopathy, metastatic breast carcinoma, superior vena cava syndrome, urinary tract infection, pneumonia with parapneumonic effusion. PRIMARY PROCEDURES AND OPERATIONS: Endotracheal intubation, mechanical ventilatory support. RADIOLOGICAL INVESTIGATION: Chest x-ray. HOSPITAL SUMMARY: A 57-year-old female with advanced metastatic breast cancer with metastasis to ple ura, lungs, mediastinum with SVC syndrome. She was on hospice care. She had a cardiopulmonary arres t out of hospital required resuscitation. She required intubation at the scene. The patient was bro ught to emergency room intubated. She was in septic shock with hypothermia, hypotension, tachycardia , and lactic acidosis. She had code blue again in the emergency room and required resuscitation. Fa lety member revoked hospice and they wanted to do all possible things to be done for her. She had mu ltiorgan failure. Her prognosis was extremely poor. She was admitted in CCU. Pulmonary group was c onsulted for vent management. Oncology was consulted while in hospital. The patient was treated wit h broad spectrum antibiotic therapy and she required maximum vasopressor. Despite that, her conditio n did not improve and had gotten worse. We had a family meeting and family also continued to be a fu ll code. Her prognosis was extremely poor already and she was not improving at all with maximal medi carlton therapy. Last night, the patient had a code blue was again and she was resuscitated, but at this time resuscit ation was not successful and she became asystole. Our night physician, Dr. Mesa, attended the cod e blue and subsequently was pronounced and the body was released for a .
[2017-11-04] MEDS ORDERED: FLU VACC QS2017-18 36 mo. & older 0.5 ML SYRINGE IM ONE (09:00)
== END 2017-11-04 03:58 | disposition expired | DRG 871 ==
LOC: ERS 14:41 → CCU 16:11
PROVIDERS: ADMIT Internal Medicine; ATTEND Internal Medicine
PROC: 5A12012 Performance of Cardiac Output, Single, Manual (ICD-10-PCS; principal; 2017-11-02)
PROC: 5A1945Z Respiratory Ventilation, 24-96 Consecutive Hours (ICD-10-PCS; 2017-11-02)
PROC: 30233N1 Transfusion of Nonautologous Red Blood Cells into Peripheral Vein, Percutaneous Approach (ICD-10-PCS; 2017-11-02)
PROC: 06HY33Z Insertion of Infusion Device into Lower Vein, Percutaneous Approach (ICD-10-PCS; 2017-11-02)
PROC: 5A12012 Performance of Cardiac Output, Single, Manual (ICD-10-PCS; 2017-11-04)
DX: A41.9 Sepsis, unspecified organism (principal); R40.20 Unspecified coma; J96.01 Acute respiratory failure with hypoxia; I46.9 Cardiac arrest, cause unspecified; R65.21 Severe sepsis with septic shock; J18.9 Pneumonia, unspecified organism; G93.1 Anoxic brain damage, not elsewhere classified; J91.8 Pleural effusion in other conditions classified elsewhere; C78.00 Secondary malignant neoplasm of unspecified lung; C78.2 Secondary malignant neoplasm of pleura; N17.9 Acute kidney failure, unspecified; C78.1 Secondary malignant neoplasm of mediastinum; C79.89 Secondary malignant neoplasm of other specified sites; I87.1 Compression of vein; I42.9 Cardiomyopathy, unspecified; J98.11 Atelectasis; N39.0 Urinary tract infection, site not specified; E87.2 Acidosis; C50.919 Malignant neoplasm of unspecified site of unspecified female breast; Z86.711 Personal history of pulmonary embolism; K21.9 Gastro-esophageal reflux disease without esophagitis; G89.3 Neoplasm related pain (acute) (chronic); Z68.33 Body mass index [BMI] 33.0-33.9, adult; M19.90 Unspecified osteoarthritis, unspecified site; Z95.5 Presence of coronary angioplasty implant and graft; Z90.01 Acquired absence of eye; Z87.891 Personal history of nicotine dependence; D63.0 Anemia in neoplastic disease; Z51.5 Encounter for palliative care; E66.01 Morbid (severe) obesity due to excess calories; Z92.21 Personal history of antineoplastic chemotherapy; Z95.828 Presence of other vascular implants and grafts; I10 Essential (primary) hypertension; J45.909 Unspecified asthma, uncomplicated; I25.10 Atherosclerotic heart disease of native coronary artery without angina pectoris; Z90.10 Acquired absence of unspecified breast and nipple; E16.2 Hypoglycemia, unspecified
CPT/HCPCS: 36415; 36416; 36430; 36556; 51702; 71010; 80053; 81003; 81015; 82533; 82805; 83605; 84443; 85007; 85025; 85027; 85060; 86850; 86900; 86901; 87040; 87077; 87086; 87186; 92950; 94002; 94003; 94640; 96365; 96366; 96375; 96376; A4216; A4217; C9113; J0171; J0461; J1644; J2270; J2370; J2543; J2920; J3010; J3370; J3475; J7050; J7070; J7620; P9016